=== PATIENT | male | born 1930 | race Caucasian/White ===

== ENCOUNTER 2017-08-25 09:08 | Day surgery (SDC) | payer OTHER, BC ==
[2017-08-25 08:50] VITALS: BMI 24.8
[2017-08-25] MEDS ORDERED: LIDOCAINE HCL/PF 2% SDV 5ML VIAL ONE (09:46)
[2017-08-25] MEDS ORDERED: PROPOFOL 20 ML ONE (09:46)
[2017-08-25 10:42] VITALS: TEMP 97.8
[2017-08-25 11:43] VITALS: BP 130/56; PULSE 61
--- NOTE | 2017-08-28 12:22 | PATH ---
Surgical Pathology Report Patient Name: MAINOR SANDOVAL [facility]. Rec. #: [id number] /Age/Gender: 1930 (Age: 87) / M Account: [id number] Location: ASU-ENDOSCOPY Taken: 08/25/2017 Received: 08/25/2017 Reported: 08/28/2017 Physicians: Franc Zazueta M.D. Specimen(s) Received BX TRANSVERSE COLON Clinical History Family history of colon cancer, screening Postoperative diagnosis: Diverticulosis Final Diagnosis PROXIMAL TRANSVERSE COLON, DIVERTICULUM, BIOPSY: COLONIC MUCOSA WITHOUT SIGNIFICANT PATHOLOGIC FINDINGS. Electronically Signed Mary Anne Odonnell M.D. Gross Description Received in formalin, labeled "biopsy transverse colon diverticulum" is a aponte, irregular portion of soft tissue measuring 0.4 cm. in greatest dimension. The specimen is submitted in toto in one cassette. /08/25/201708/25/2017
== END 2017-08-25 11:43 | disposition home or self-care (01) ==
LOC: JASU-ENDO 09:08
PROVIDERS: ATTEND Internal Medicine Gastroenterology
PROC: 0DBL8ZX Excision of Transverse Colon, Via Natural or Artificial Opening Endoscopic, Diagnostic (ICD-10-PCS; principal; 2017-08-25 09:45)
DX: Z12.11 Encounter for screening for malignant neoplasm of colon (principal); Z80.0 Family history of malignant neoplasm of digestive organs; K57.30 Diverticulosis of large intestine without perforation or abscess without bleeding
CPT/HCPCS: 88305-TC

== ENCOUNTER 2017-10-30 13:45 | Inpatient (IN) | payer OTHER, BC ==
[2017-10-30 13:57] VITALS: BMI 24.2
--- NOTE | 2017-10-30 14:03 | PDOC ---
History of Present Illness - General Chief Complaint: Shortness of Breath Stated Complaint: CHEST PAIN Time Seen by Provider: 10/30/17 14:01 History Source: Patient, Family Exam Limitations: No Limitations - History of Present Illness Initial Comments: 10/30/17 14:28 87 year old male with PMH COPD, DM, chronic UTI, prostate CA, esophageal CA, vertigo, HTN, HLD, CAD, [place] x2, stents, chronic ear wax presenting to ED for productive cough x2 weeks and fever x3 days. He also complains of chest tightness, dizziness, generalized weakness. He states he had a sore throat a week ago, but that since has self resolved. He states talked to Dr. Srivastava last monday on the phone about his cough, had a fever of 99.9F, was placed on Z-pack and prednisone, but his symptoms progressed. He describes his sputum as green. He had a fever of 100.3F today. Past History - Past Medical History Allergies/Adverse Reactions: Allergies Allergy/AdvReac Type Severity Reaction Status Date / Time No Known Drug Allergies Allergy Verified 10/30/17 13:53 Home Medications: Ambulatory Orders Aspirin [ASA -] 81 mg PO ASDIR 11/21/11 Glucosa Zaidi 2Kcl/Chondroitin Zaidi [Glucosamine & Chondroitin Cap] 1 each PO DAILY # 0 capsule 11/24/11 Selenium 200 mcg PO DAILY #0 tablet 11/24/11 Ubidecarenone [Co Q-10] 400 mg PO DAILY #0 capsule 11/24/11 Vitamin E 1,000 unit PO DAILY #0 capsule 11/24/11 Zinc [Zinc Chelated] 50 mg PO DAILY #0 capsule 11/24/11 Omeprazole [Prilosec (RX)] 20 mg PO DAILY #0 capsule 01/23/12 Metformin HCl [Riomet] 500 mg PO DAILY 01/19/16 Tamsulosin HCl [Flomax] 0.4 mg PO BID 01/19/16 Meclizine HCl [Antivert -] 25 mg PO Q6H PRN #60 tablet 01/22/16 metFORMIN HCL [Glucophage -] 500 mg PO DAILY@0700 tablet 01/22/16 Atorvastatin Ca [Lipitor] 40 mg PO HS 10/30/17 Lisinopril [Zestril] 2.5 mg PO DAILY 10/30/17 Metoprolol Succinate [Toprol XL -] 200 mg PO BID 10/30/17 Anemia: No Asthma: No Cancer: Yes (PROSTATE) Cardiac Disorders: Yes (MIX2, STENT PLACEMENT) CVA: No COPD: Yes (EMPHYSEMA) CHF: No Dementia: No Diabetes: Yes GI Disorders: Yes Disorders: Yes (CHRONIC UTI X 6 YEARS,prostate ca) HTN: Yes Hypercholesterolemia: Yes Liver Disease: No Seizures: No Thyroid Disease: No - Surgical History Abdominal Surgery: Yes (BILATERAL INGUINAL HERNIA REPAIR) Appendectomy: No Cardiac Surgery: Yes (STENTS X2) Lung Surgery: No Neurologic Surgery: No Orthopedic Surgery: Yes - Suicide/Smoking/Psychosocial Hx Smoking Status: Yes Smoking History: Current every day smoker Have you smoked in the past 12 months: No Number of Cigarettes Smoked Daily: 2 If you are a former smoker, when did you quit?: 2012 Information on smoking cessation initiated: No 'Breaking Loose' booklet given: 04/23/13 Hx Alcohol Use: No Drug/Substance Use Hx: No Substance Use Type: None Hx Substance Use Treatment: No Review of Systems - Review of Systems Able to Perform ROS?: Yes Comments:: 10/30/17 14:32 General: admits to fever, generalized weakness. HEENT: admits to nasal congestion. denies sore throat, rhinorrhea, ear pain. Heart: admits to chest tightness. denies palpitations, syncope, lower extremity swelling, diaphoresis. Respiratory: admits to shortness of breath, productive cough. denies hematemesis. Abdomen: denies abdominal pain, nausea, vomiting, diarrhea, constipation, blood in stool. : denies dysuria, increased urinary frequency, hematuria, urinary incontinence , flank pain. Back: denies back pain. Musculoskeletal: denies joint pain, muscle pain, joint swelling. Neurological: admits to dizziness. denies headache, numbness, tingling, weakness. Skin: denies rash, laceration, abrasion. *Physical Exam - Vital Signs Last Vital Signs Temp Pulse Resp BP Pulse Ox 99.2 F 71 20 124/58 L 95 10/30/17 13:53 10/30/17 13:53 10/30/17 13:53 10/30/17 13:53 10/30/17 13:53 - Physical Exam Comments: 10/30/17 14:34 Constitutional: Well-nourished, Well-developed, appearing stated age. HEENT: head is normocephalic, atraumatic. EOMI. PERRLA. left auditory canal and TM unable to be visualized due to cerumen. right auditory canal displays cerumen , redness to ear canal, unable to visualize TM due to cerumen. nasal mucosa pink , appears normal. no tenderness to palpation of frontal and maxillary sinus bilaterally. oral mucosa moist, pink. no tonsillar swealling, no tonsillar exudates, no posterior pharyngeal edema. Neck: supple. Full ROM. no cervical lymphadenopathy. Heart: distant heart sounds. Lungs: inspiratory crackles to right base. left lung breaux clear to auscultation. Abdomen: soft, nontender. normal bowel sounds. no rebound, guarding, masses. Extremities: Peripheral pulses intact. No lower extremity edema. Neurological: CN 2-12 grossly intact. Moves all four extremities. Psych: awake, alert, oriented x3. Follows commands. Answers questions appropriately. Heart Score/ECG Review - ECG Impressions Comment:: EKG performed at 1355 Rate 112, irregularly irregular rhythm, left axis, left budnle branch block present, no acute ST changes. EKG performed at 1834 Rate 95, irregularly irregular rhythm, left bundle branch block, no acute ST changes. ED Treatment Course - LABORATORY CBC & Chemistry Diagram: 10/30/17 15:25 10/30/17 15:25 Medical Decision Making - Medical Decision Making 10/30/17 14:40 87 year old male with PMH COPD, DM, HTN, LD, CAD, MIx2, stents, vertigo presenting for cough, nasal congestion, chest tightness, fever, dizziness, decreased hearing to right ear. Pt seen by PCP, Dr. Srivastava, last monday, given Z-pack and prednisone. Self-reported fever of 100.3. Initial Vital Signs Temp Pulse Resp BP Pulse Ox 99.2 F 71 20 124/58 L 95 10/30/17 13:53 10/30/17 13:53 10/30/17 13:53 10/30/17 13:53 10/30/17 13:53 Concern for pneumonia, productive cough, Hx COPD, basilar crackles. Pending CXR, CBC. Concern for UTI, hx chronic UTI. Pending UA/UC. Concern for ACS/atrial fibrillation, chest tightness, hx MIx2, hx stents. Pending EKG, cardiac enzymes. 10/30/17 14:45 EKG - atrial fibrillation with RVR. Concern for new onset Atrial fibrillation. Pt is not anticoagulated. [employer] Tester Field - Dr. Baker. 10/30/17 15:26 I spoke with pt's concert promoter, Dr. Baker, he states he would like the patient to be anticoagulated on Eliquis, and admitted for rate control. Pending labs for dosing. 10/30/17 16:50 Pt reassessed, states is feeling well. Atrial fibrillation noted on the library monitor, rate 92. CMP hemolyzed. Will redraw. CBC WBC 14.1 K/mm3 (4.0-10.0) H 10/30/17 15:25 RBC 3.91 M/mm3 (4.00-5.60) L 10/30/17 15:25 Hgb 11.9 GM/dL (11.7-16.9) 10/30/17 15:25 Hct 36.3 % (35.4-49) 10/30/17 15:25 MCV 92.9 fl (80-96) 10/30/17 15:25 MCH 30.4 pg (25.7-33.7) 10/30/17 15:25 MCHC 32.8 g/dl (32.0-35.9) 10/30/17 15:25 RDW 13.8 % (11.9-15.9) 10/30/17 15:25 Plt Count 468 K/MM3 (134-434) H D 10/30/17 15:25 MPV 7.8 fl (7.5-11.1) 10/30/17 15:25 Absolute Neuts (auto) 10.6 K/mm3 (1.5-8.0) H 10/30/17 15:25 Neutrophils % 75.6 % (42.8-82.8) D 10/30/17 15:25 Lymphocytes % 11.6 % (8-40) D 10/30/17 15:25 Monocytes % 12.0 % (3.8-10.2) H 10/30/17 15:25 Eosinophils % 0.3 % (0-4.5) D 10/30/17 15:25 Basophils % 0.5 % (0-2.0) 10/30/17 15:25 Nucleated RBC % 0 % (0-0) 10/30/17 15:25 Leukocytosis - WBC 14.1, on prednisone. Laboratory Results - last 24 hr 10/30/17 10/30/17 10/30/17 15:20 15:25 15:25 WBC 14.1 H RBC 3.91 L Hgb 11.9 Hct 36.3 MCV 92.9 MCH 30.4 MCHC 32.8 RDW 13.8 Plt Count 468 H D MPV 7.8 Absolute Neuts (auto) 10.6 H Neutrophils % 75.6 D Lymphocytes % 11.6 D Monocytes % 12.0 H Eosinophils % 0.3 D Basophils % 0.5 Nucleated RBC % 0 Sodium 134 L Cancelled Potassium 5.1 Cancelled Chloride 107 Cancelled Carbon Dioxide 26 Cancelled Anion Gap 1 L Cancelled BUN 22 H Cancelled Creatinine 1.1 Cancelled Creat Clearance w eGFR > 60 Cancelled Random Glucose 107 H Cancelled Calcium 9.5 Cancelled Total Bilirubin 0.2 Cancelled AST 14 L Cancelled ALT 22 Cancelled Alkaline Phosphatase 63 Cancelled Creatine Kinase 49 Cancelled Troponin I 0.02 Cancelled Total Protein 6.7 Cancelled Albumin 3.0 L Cancelled TSH 0.08 L Cancelled Urine Color Urine Appearance Urine pH Ur Specific [place] Urine Protein Urine Glucose (UA) Urine Ketones Urine Blood Urine Nitrite Urine Bilirubin Urine Urobilinogen Ur Leukocyte Esterase Urine WBC (Auto) Urine RBC (Auto) Ur Epithelial Cells Urine Bacteria Hyaline Casts Urine Mucus 10/30/17 17:05 WBC RBC Hgb Hct MCV MCH MCHC RDW Plt Count MPV Absolute Neuts (auto) Neutrophils % Lymphocytes % Monocytes % Eosinophils % Basophils % Nucleated RBC % Sodium Potassium Chloride Carbon Dioxide Anion Gap BUN Creatinine Creat Clearance w eGFR Random Glucose Calcium Total Bilirubin AST ALT Alkaline Phosphatase Creatine Kinase Troponin I Total Protein Albumin TSH Urine Color Yellow Urine Appearance Slcloudy Urine pH 6.0 Ur Specific [place] 1.012 Urine Protein Negative Urine Glucose (UA) Negative Urine Ketones Negative Urine Blood Negative Urine Nitrite Positive Urine Bilirubin Negative Urine Urobilinogen Negative Ur Leukocyte Esterase 3+ H Urine WBC (Auto) 152 Urine RBC (Auto) 4 Ur Epithelial Cells Rare Urine Bacteria Many Hyaline Casts 4 Urine Mucus Rare Chronic UTI present. Similar to prior result. Asymptomatic. No indication for treatment at this time. Troponin negative. Cr 1.1. I signed this patient out to Dr. Roper, who will assume care for the patient in the Emergency Department. *DC/Admit/Observation/Transfer Diagnosis at time of Disposition: Atrial fibrillation with RVR Diabetes Qualifiers: Diabetes mellitus type: type 2 Diabetes mellitus custodial insulin use: unspecified custodial insulin use status Diabetes mellitus complication status: with unspecified complications Qualified Code(s): E11.8 - Type 2 diabetes mellitus with unspecified complications - Discharge Dispostion Condition at time of disposition: Good Decision to Admit order: Yes - Referrals Referrals: Taye Srivastava MD [Primary Care Provider] - - Patient Instructions - Post Discharge Activity
--- NOTE | 2017-10-30 14:16 | PDOC ---
Attending Attestation - Resident Resident Name: Gin Gardiner - ED Attending Attestation I have performed the following: I have examined & evaluated the patient, The case was reviewed & discussed with the resident, I agree w/resident's findings & plan, Exceptions are as noted - HPI HPI: 10/30/17 14:38 Mr Torres is an 87 yo M COPD, DM, HTN, HLD, CAD, [place], esophageal and prostate Cancer P/w cough, chest tightness, exertional dyspnea He has also noted a (+) productive cough and dizziness He was seen by his PMD last week, thought to have an URI/COPD exacerbation He was started on Azithromycin and Prednisone His symptoms have persisted which prompted his visit today 10/30/17 15:35 - Physicial Exam PE: 10/30/17 14:39 GENERAL: The patient is in no acute distress. EYES: PERRLA, EOMI, sclera anicteric, conjunctiva clear. ENT: Ears normal, nares patent, oropharynx clear without exudates. Moist mucous membranes. NECK: Normal range of motion, supple without lymphadenopathy LUNGS: Breath sounds equal, clear to auscultation bilaterally. No wheezing HEART: Irregularly irregular, no murmur, ABDOMEN: Soft, nontender, normoactive bowel sounds. No guarding, no rebound. No masses palpable. EXTREMITIES: Normal range of motion, no edema. NEUROLOGICAL: Cranial nerves II through XII grossly intact. Normal speech. No focal neurological deficits. 10/30/17 15:37 - Medical Decision Making 87-year-old male with multiple medical problems presents emergency Department with shortness of breath, status post recent treatment for COPD exacerbation Patient EKG reveals atrial fibrillation which is slightly can tell and diagnosis for this patient. Differential diagnosis still includes: COPD, ACS, atrial fibrillation, heart failure. Will do: Labs, x-ray Rate control Reassess 10/30/17 15:53 EKG: Atrial fibrillation, rate of 112 bpm, left axis deviation, left bundle branch block 10/30/17 15:53 Laboratory Tests 10/30/17 15:25 WBC 14.1 H Hgb 11.9 Hct 36.3 Plt Count 468 H D 10/30/17 17:23 Pt presents with SOB New onset Afib CMP pending Pt signed out to Dr Truman Zamudio
[2017-10-30 15:41] LABS: BASO % 0.5 % (0-2.0); EOS % 0.3 % (0-4.5); HEMATOCRIT 36.3 % (35.4-49); HEMOGLOBIN 11.9 GM/dL (11.7-16.9); LYMPH % 11.6 % (8-40); MCH 30.4 pg (25.7-33.7); MCHC 32.8 g/dl (32.0-35.9); MEAN CELL VOLUME 92.9 fl (80-96); MEAN PLT VOLUME 7.8 fl (7.5-11.1); NEUT % 75.6 % (42.8-82.8); PLATELET COUNT 468 K/MM3 (134-434); RBC 3.91 M/mm3 (4.00-5.60); RDW 13.8 % (11.9-15.9); WHITE BLOOD COUNT 14.1 K/mm3 (4.0-10.0)
[2017-10-30 17:31] LABS: URINE APPEARANCE SLCLOUDY; URINE BILIRUBIN NEGATIVE (<2.0 mg/dL); URINE COLOR YELLOW; URINE GLUCOSE (UA) NEGATIVE (NEGATIVE); URINE KETONE NEGATIVE (NEGATIVE); URINE NITRITE POSITIVE (NEGATIVE); URINE PROTEIN NEGATIVE (NEGATIVE); URINE UROBILINOGEN NEGATIVE mg/dL (0.2-1.0)
[2017-10-30 17:59] LABS: URINE LEUK ESTERASE 3+ (NEGATIVE)
[2017-10-30 18:31] LABS: EPI CELLS RARE /HPF (FEW); URINE BACTERIA MANY /hpf (NONE SEEN); URINE HYALINE CAST 4 /lpf; URINE MUCUS RARE
[2017-10-30 19:05] LABS: ALK PHOS 63 U/L (45-117); ANION GAP 1 MMOL/L (8-16); BILIRUBIN,TOTAL 0.2 mg/dL (0.2-1); BLOOD UREA NITROGEN 22 mg/dL (7-18); CALCIUM 9.5 mg/dL (8.5-10.1); CHLORIDE 107 mmol/L (98-107); CO2 26 mmol/L (21-32); CREATININE 1.1 mg/dL (0.55-1.3); GLUCOSE,RANDOM 107 mg/dL (74-106); POTASSIUM 5.1 mmol/L (3.5-5.1); SGOT/AST 14 U/L (15-37); SGPT/ALT 22 U/L (13-61); SODIUM 134 mmol/L (136-145); TOT PROT 6.7 g/dl (6.4-8.2)
--- NOTE | 2017-10-30 19:28 | PDOC ---
*Physical Exam - Vital Signs Last Vital Signs Temp Pulse Resp BP Pulse Ox 96.6 F L 85 17 132/63 95 10/30/17 18:30 10/30/17 18:30 10/30/17 18:30 10/30/17 18:30 10/30/17 13:53 - Physical Exam Comments: GENERAL: Awake, alert, and fully oriented, in no acute distress LUNGS: No distress, speaks full sentences, clear to auscultation bilaterally HEART: Regular rate w/ irregularly irregular rhythm, normal S1 and S2, no murmurs appreciated, peripheral pulses normal and equal bilaterally ABDOMEN: Soft, nontender, non-distended w/o guarding or rebound 10/30/17 22:48 ED Treatment Course - LABORATORY CBC & Chemistry Diagram: 10/30/17 15:25 10/30/17 15:25 - ADDITIONAL ORDERS Additional order review: Laboratory Results 10/30/17 10/30/17 10/30/17 17:05 15:25 15:20 Sodium Cancelled 134 L Potassium Cancelled 5.1 Chloride Cancelled 107 Carbon Dioxide Cancelled 26 Anion Gap Cancelled 1 L BUN Cancelled 22 H Creatinine Cancelled 1.1 Creat Clearance w eGFR Cancelled > 60 Random Glucose Cancelled 107 H Calcium Cancelled 9.5 Total Bilirubin Cancelled 0.2 AST Cancelled 14 L ALT Cancelled 22 Alkaline Phosphatase Cancelled 63 Creatine Kinase Cancelled 49 Troponin I Cancelled 0.02 Total Protein Cancelled 6.7 Albumin Cancelled 3.0 L TSH Cancelled 0.08 L Urine Color Yellow Urine Appearance Slcloudy Urine pH 6.0 Ur Specific [place] 1.012 Urine Protein Negative Urine Glucose (UA) Negative Urine Ketones Negative Urine Blood Negative Urine Nitrite Positive Urine Bilirubin Negative Urine Urobilinogen Negative Ur Leukocyte Esterase 3+ H Urine WBC (Auto) 152 Urine RBC (Auto) 4 Ur Epithelial Cells Rare Urine Bacteria Many Hyaline Casts 4 Urine Mucus Rare 10/30/17 15:25 RBC 3.91 L MCV 92.9 MCHC 32.8 RDW 13.8 MPV 7.8 Neutrophils % 75.6 D Lymphocytes % 11.6 D Monocytes % 12.0 H Eosinophils % 0.3 D Basophils % 0.5 Medical Decision Making - Medical Decision Making I have assumed care of the patient from Dr. Gardiner, who has discussed the clinical presentation, work-up, and ED course thus far. I have reviewed the patients medical record and ED course and agree with all aspects of care thus far. Patient denies chest pain, SOB, WOODRUFF, changes in vision or any current complaints UA concerning for UTI, will draw blood cx and treat with Rocephin 1g IV once Plan for admission for management of new onset a-fib w/ RVR Will start Eliquis 2.5mg based on dosing recommendations for age Will obtain blood cultures prior to Abx Dispo: Admit w/ Cardiology consult 10/30/17 20:04 *DC/Admit/Observation/Transfer Diagnosis at time of Disposition: Atrial fibrillation with RVR Diabetes Qualifiers: Diabetes mellitus type: type 2 Diabetes mellitus long term care phlebotomist insulin use: unspecified long term care phlebotomist insulin use status Diabetes mellitus complication status: with unspecified complications Qualified Code(s): E11.8 - Type 2 diabetes mellitus with unspecified complications - Discharge Dispostion Condition at time of disposition: Good Decision to Admit order: Yes Decision to Admit order Date/Time: Decision to Admit Order Category Date Time Status Decision to Admit to Hospital Routine Admission 10/30/17 19:26 Ordered - Referrals - Patient Instructions - Post Discharge Activity
[2017-10-30] MEDS ORDERED: CEFTRIAXONE 1 MG in DEXTROSE 5%-WATER - 50 ML IVPB ONE (20:02)
--- NOTE | 2017-10-30 20:04 | PN ---
Teaching Attending Note Name of Resident: Tracy Rosario ATTENDING PHYSICIAN STATEMENT I saw and evaluated the patient. I reviewed the resident's note and discussed the case with the resident. I agree with the resident's findings and plan as documented. SUBJECTIVE: 87 y/o M presented to Ed c/o cough , congestion and dizziness, patient was seen by PMD and treated with Azithromycin and prednisone. Medication compliance not adequate. PMH: HTN, HLD, CAD, s/p [place] 2 stents, h/o UTIs, H/o Prostate cancer, Esophageal Cancer and vertigo. SH: h/o smoking quit 2 weks ago 1PPD, Social drinker, Marijuana FMH: Mother colon Ca, Father CAD, from [place], Brother Lung Cancer, Daughter Breast Ca OBJECTIVE: GEN: A&Ox3, NAD HEENT: NC, EOMI, PERRLA CVS: Irregular rhythm Lungs: CTA Abd: Soft, NT, ND, BS+ Ext: nl ROM, 2+ pulses. skin: warm CBCD WBC 14.1 K/mm3 (4.0-10.0) H 10/30/17 15:25 RBC 3.91 M/mm3 (4.00-5.60) L 10/30/17 15:25 Hgb 11.9 GM/dL (11.7-16.9) 10/30/17 15:25 Hct 36.3 % (35.4-49) 10/30/17 15:25 MCV 92.9 fl (80-96) 10/30/17 15:25 MCHC 32.8 g/dl (32.0-35.9) 10/30/17 15:25 RDW 13.8 % (11.9-15.9) 10/30/17 15:25 Plt Count 468 K/MM3 (134-434) H D 10/30/17 15:25 MPV 7.8 fl (7.5-11.1) 10/30/17 15:25 ASSESSMENT AND PLAN: Sepsis secondary to UTI vs URI IVF NS@ Ceftriaxone Follow Ucx CBC, BMP New Onset Afib LYNNE vasc-5 Elliquis cardiology consult ECHO in AM Abnormal TSH FT4, FT3 Depression PHQ9 DVT prophylaxis
[2017-10-30] MEDS ORDERED: CEFTRIAXONE 1 GM/50 ML BAG ONE (20:29)
[2017-10-30] MEDS: APIXABAN 2.5 MG TABLET PO SCH (22:05)
--- NOTE | 2017-10-30 23:04 | HP ---
CHIEF COMPLAINT: fever, chest tightness, cough PCP: PCP- Dr. Srivastava Cardio- Dr. Baker HISTORY OF PRESENT ILLNESS: 87M w/ pmhx of DM, GERD, HLD, prostate cx, esophageal cx, HTN presented w/ a reported fever this AM of 100.3. Pt was recently seen by his PCP, Dr. Srivastava, this past Monday for R ear congestion and cough with productive sputum and was given azithromycin and prednisone. Of note, pt did not complete medication regimen yet. Upon exam, pt's granddaughter, also his health care proxy, was present. Pt was instructed to go to hospital for symptoms. Upon exam, pt was no longer febrile. Admits to "cock-eyed" gait that started several weeks prior. Also admits to dizziness that started 4 mo's ago and chest tightness with mild sob. Pt admits to pressure and crackling sensation in R ear with recent R hearing loss. Denies n/v, urinary/bowel symptoms, blood in urine/stool, abd pain. ER course was notable for: (1) Rocephin 1 gm given (2) CXR neg, ECG showed A. fib w/ RVR (3) UA 3+ LE, urine cx ordered Recent Travel: Denies PAST MEDICAL HISTORY: DM GERD HLD prostate cx esophageal cx HTN chronic recurrent UTIs PAST SURGICAL HISTORY: TURP [facility] s/p stent placement x2 umbilical hernia repair L ankle sx removal of esophageal tumor Social History: Smoking: Admits to smoking for 70 years, 1pack/day but recently quit in 2013. He started smoking again July 2017 and stopped 2 weeks ago Alcohol: socially Drugs: uses marijuana once every 6 months Family History: Mother- colon cx Father- [facility] Brother- Lung cx Daughter- breast cx Allergies No Known Drug Allergies Allergy (Verified 10/30/17 13:53) HOME MEDICATIONS: Home Medications Medication Instructions Recorded Aspirin [ASA -] 81 mg PO ASDIR 11/21/11 Glucosa Zaidi 2Kcl/Chondroitin Zaidi 1 each PO DAILY #0 capsule 11/24/11 [Glucosamine & Chondroitin Cap] Selenium 200 mcg PO DAILY #0 tablet 11/24/11 Ubidecarenone [Co Q-10] 400 mg PO DAILY #0 capsule 11/24/11 Vitamin E 1,000 unit PO DAILY #0 capsule 11/24/11 Zinc [Zinc Chelated] 50 mg PO DAILY #0 capsule 11/24/11 Omeprazole [Prilosec (RX)] 20 mg PO DAILY #0 capsule 01/23/12 Metformin HCl [Riomet] 500 mg PO DAILY 01/19/16 Tamsulosin HCl [Flomax] 0.4 mg PO BID 01/19/16 Meclizine HCl [Antivert -] 25 mg PO Q6H PRN #60 tablet 01/22/16 metFORMIN HCL [Glucophage -] 500 mg PO DAILY@0700 tablet 01/22/16 Atorvastatin Ca [Lipitor] 40 mg PO HS 10/30/17 Lisinopril [Zestril] 2.5 mg PO DAILY 10/30/17 Metoprolol Succinate [Toprol XL -] 200 mg PO BID 10/30/17 REVIEW OF SYSTEMS CONSTITUTIONAL: Absent: fever, chills, diaphoresis, generalized weakness, malaise, loss of appetite, weight change HEENT: Absent: rhinorrhea, nasal congestion, throat pain, throat swelling, difficulty swallowing, mouth swelling, ear pain, eye pain, visual changes CARDIOVASCULAR: +chest tightness, +lightheadedness Absent: chest pain, syncope, palpitations, irregular heart rate, peripheral edema RESPIRATORY: +cough, +dyspnea with exertion Absent: shortness of breath, , orthopnea, wheezing, stridor, hemoptysis GASTROINTESTINAL: Absent: abdominal pain, abdominal distension, nausea, vomiting, diarrhea, constipation, melena, hematochezia GENITOURINARY: Absent: dysuria, frequency, urgency, hesitancy, hematuria, flank pain, genital pain MUSCULOSKELETAL: Absent: myalgia, arthralgia, joint swelling, back pain, neck pain SKIN: Absent: rash, itching, pallor HEMATOLOGIC/IMMUNOLOGIC: Absent: easy bleeding, easy bruising, lymphadenopathy, frequent infections ENDOCRINE: Absent: unexplained weight gain, unexplained weight loss, heat intolerance, cold intolerance NEUROLOGIC: +dizziness, +unsteady gait Absent: headache, focal weakness or paresthesias, seizure, mental status changes , bladder or bowel incontinence PSYCHIATRIC: +depression Absent: anxiety, suicidal or homicidal ideation, hallucinations. PHYSICAL EXAMINATION Vital Signs - 24 hr 10/30/17 10/30/17 13:53 18:30 Temperature 99.2 F 96.6 F L Pulse Rate 71 Pulse Rate [ 85 Radial] Respiratory 20 17 Rate Blood Pressure 124/58 L Blood Pressure 132/63 [Left Arm] O2 Sat by Pulse 95 Oximetry (%) GENERAL: AAOx3. NAD. Well-appearing. HEENT: AT/NC. EOMI. Dry mucus membranes. NECK: Normal range of motion, supple without lymphadenopathy, JVD, or masses. LUNGS: CTA B/L. No wheezes, rhonchi, rales noted. No accessory muscle use. HEART: Regular rate and rhythm, normal S1 and S2 without murmur, rub or gallop. ABDOMEN: Soft NT/ND. Normoactive BS in all 4Q's. Umbilical hernia. MUSCULOSKELETAL: Normal range of motion at all joints. No bony deformities or tenderness. No CVA tenderness. UPPER EXTREMITIES: 2+ pulses, warm, well-perfused. No cyanosis. No clubbing. No peripheral edema. 5/5 muscle strength b/l. LOWER EXTREMITIES: 2+ pulses, warm, well-perfused. No calf tenderness. No peripheral edema. 5/5 muscle strength b/l. NEUROLOGICAL: Cranial nerves II-XII intact. Normal speech. Wide-based gait. Normal sensation. PSYCHIATRIC: Cooperative. Good eye contact. Appropriate mood and affect. SKIN: Warm, dry, normal turgor, no rashes or lesions noted, normal capillary refill. Laboratory Results - last 24 hr 10/30/17 10/30/17 10/30/17 15:20 15:25 15:25 WBC 14.1 H RBC 3.91 L Hgb 11.9 Hct 36.3 MCV 92.9 MCH 30.4 MCHC 32.8 RDW 13.8 Plt Count 468 H D MPV 7.8 Absolute Neuts (auto) 10.6 H Neutrophils % 75.6 D Lymphocytes % 11.6 D Monocytes % 12.0 H Eosinophils % 0.3 D Basophils % 0.5 Nucleated RBC % 0 Sodium 134 L Cancelled Potassium 5.1 Cancelled Chloride 107 Cancelled Carbon Dioxide 26 Cancelled Anion Gap 1 L Cancelled BUN 22 H Cancelled Creatinine 1.1 Cancelled Creat Clearance w eGFR > 60 Cancelled Random Glucose 107 H Cancelled Calcium 9.5 Cancelled Total Bilirubin 0.2 Cancelled AST 14 L Cancelled ALT 22 Cancelled Alkaline Phosphatase 63 Cancelled Creatine Kinase 49 Cancelled Troponin I 0.02 Cancelled Total Protein 6.7 Cancelled Albumin 3.0 L Cancelled TSH 0.08 L Cancelled Urine Color Urine Appearance Urine pH Ur Specific [place] Urine Protein Urine Glucose (UA) Urine Ketones Urine Blood Urine Nitrite Urine Bilirubin Urine Urobilinogen Ur Leukocyte Esterase Urine WBC (Auto) Urine RBC (Auto) Ur Epithelial Cells Urine Bacteria Hyaline Casts Urine Mucus 10/30/17 17:05 WBC RBC Hgb Hct MCV MCH MCHC RDW Plt Count MPV Absolute Neuts (auto) Neutrophils % Lymphocytes % Monocytes % Eosinophils % Basophils % Nucleated RBC % Sodium Potassium Chloride Carbon Dioxide Anion Gap BUN Creatinine Creat Clearance w eGFR Random Glucose Calcium Total Bilirubin AST ALT Alkaline Phosphatase Creatine Kinase Troponin I Total Protein Albumin TSH Urine Color Yellow Urine Appearance Slcloudy Urine pH 6.0 Ur Specific [place] 1.012 Urine Protein Negative Urine Glucose (UA) Negative Urine Ketones Negative Urine Blood Negative Urine Nitrite Positive Urine Bilirubin Negative Urine Urobilinogen Negative Ur Leukocyte Esterase 3+ H Urine WBC (Auto) 152 Urine RBC (Auto) 4 Ur Epithelial Cells Rare Urine Bacteria Many Hyaline Casts 4 Urine Mucus Rare ASSESSMENT/PLAN: 87M w/ pmhx of CAD, [facility] s/p stent placements x2, HLD, prostate cx, esophageal cx , HTN, #Sepsis 2/2 UTI vs. URI; Upon initial exam, pt tachycardic at 112 with WBC 14.1 and UA w/ 3+ LE. -Rocephin 1gm IV given -urine and blood cx pending -NS @ 75 cc/hr -repeat CBC in AM #New onset A. fib w/ RVR 2/2 possible hyperthyroidism vs. valvular disease; Pt currently asymptomatic. -CHADVASc 5, needs anti-coag -Eliquis 2.5 mg PO BID -Echo ordered to r/o valvular disease -T3, T4 ordered to assess thyroid fxn -cardio consult (Dr. Baker) #HTN; Stable at 132/63. -Metoprolol succinate 200 mg PO BID (home med) #HLD -Atorvastatin 40 mg PO HS (home med) #DM; Controlled. -hold Metformin -ISS -BGMs #CAD -Aspirin 81 mg PO QD (home med) #hx of prostate cx; s/p TURP -Tamsulosin Hcl 0.4 mg PO BID (home med) #GERD -Omeprazole 20 mg PO QD (home med) #Depression -plan to do depression screen #DVT Ppx; Pt started on Eliquis. -SCDs #FEN -NS @ 75cc/hr -recheck ruma in AM -diabetic/sodium controlled diet dispo -Granddaughter is POA/HCP -med rec'd Visit type - Emergency Visit Emergency Visit: Yes ED Registration Date: 10/30/17 Care time: The patient presented to the Emergency Department on the above date and was hospitalized for further evaluation of their emergent condition. - New Patient This patient is new to me today: Yes Date on this admission: 10/31/17 - Critical Care Critical Care patient: No Hospitalist Screening - Colonoscopy Questionnaire Colonoscopy Questionnaire: Colonoscopy Questionnaire - Patient: 50 - 75 years old and never had a screening colonoscopy: Unknown History of colon or rectal polyps, or CA: Unknown History of IBD, Crohn's disease or UC: Unknown History of abdominal radiation therapy as a child: Unknown - Relative: 1 with colon or rectal CA, or polyps at age 60 or younger: Unknown Colon or rectal CA diagnosed at age 45 or younger: Unknown Multiple relatives with colon or rectal CA: Unknown - Outcome: Screening Result: Negative Screen
[2017-10-31] MEDS ORDERED: ASPIRIN 81 MG CHEWABLE TABLETS PO SCH (02:45)
[2017-10-31] MEDS: SODIUM CHLORIDE 1,000 ML IV SCH (02:49)
[2017-10-31] MEDS ORDERED: HEMOQUE CONTROL SOLUTION ONE (05:43)
[2017-10-31] MEDS ORDERED: HEMOQUE TEST 1 EACH EACH ONE (05:44)
[2017-10-31 06:35] LABS: BASO % 0.4 % (0-2.0); EOS % 0.8 % (0-4.5); HEMATOCRIT 33.9 % (35.4-49); HEMOGLOBIN 11.2 GM/dL (11.7-16.9); LYMPH % 18.5 % (8-40); MCH 30.3 pg (25.7-33.7); MEAN CELL VOLUME 91.8 fl (80-96); MEAN PLT VOLUME 6.9 fl (7.5-11.1); MONO % 14.5 % (3.8-10.2); NEUT % 65.8 % (42.8-82.8); PLATELET COUNT 419 K/MM3 (134-434); RBC 3.69 M/mm3 (4.00-5.60); WHITE BLOOD COUNT 11.3 K/mm3 (4.0-10.0)
[2017-10-31] MEDS: INSULIN SLIDING SCALE (NOVOLOG) 1 VIAL SQ SCH ×4 (07:01→21:41)
[2017-10-31 07:03] LABS: ALBUMIN 2.6 g/dl (3.4-5.0); ALK PHOS 57 U/L (45-117); ANION GAP 7 MMOL/L (8-16); BILIRUBIN,TOTAL 0.2 mg/dL (0.2-1); BLOOD UREA NITROGEN 19 mg/dL (7-18); CALCIUM 8.8 mg/dL (8.5-10.1); CHLORIDE 105 mmol/L (98-107); CO2 28 mmol/L (21-32); CREATININE 1.2 mg/dL (0.55-1.3); GLUCOSE,RANDOM 102 mg/dL (74-106); POTASSIUM 4.8 mmol/L (3.5-5.1); SGOT/AST 11 U/L (15-37); SGPT/ALT 18 U/L (13-61); SODIUM 140 mmol/L (136-145); TOT PROT 5.8 g/dl (6.4-8.2)
[2017-10-31] MEDS ORDERED: SELENIUM 200 MCG PO SCH (10:00)
[2017-10-31] MEDS ORDERED: PATIENT'S OWN MEDICATION (NON-FORMULARY) (Glucosa Su 2kcl/Chondroitin Su [Glucosamine & Ch PO SCH (10:00)
[2017-10-31] MEDS ORDERED: UBIDECARENONE 400 MG PO SCH (10:00)
[2017-10-31] MEDS: LISINOPRIL 5 MG TABLET (FP) PO SCH (10:35)
[2017-10-31] MEDS: APIXABAN 2.5 MG TABLET PO SCH ×2 (10:35→21:38)
[2017-10-31] MEDS: PANTOPRAZOLE 20 MG TABLET (FP) PO SCH (10:35)
[2017-10-31] MEDS: TAMSULOSIN HCL 0.4 MG CAP.ER.24H (FP) PO SCH ×2 (10:35→21:38)
[2017-10-31] MEDS: ZINC SULFATE 220 MG CAPSULE (FP) PO SCH (10:35)
[2017-10-31] MEDS: VITAMIN E 400 INTERNATIONAL-UNITS CAPSULE (FP) PO SCH (10:36)
--- NOTE | 2017-10-31 10:56 | EKG ---
Test Reason : Blood Pressure : / mmHG Vent. Rate : 095 BPM Atrial Rate : 089 BPM P-R Int : 000 ms QRS Dur : 142 ms QT Int : 366 ms P-R-T Axes : 000 -27 095 degrees QTc Int : 459 ms ATRIAL FIBRILLATION LEFT BUNDLE BRANCH BLOCK ABNORMAL ECG WHEN COMPARED WITH ECG OF 19-JAN-2016 17:03, ATRIAL FIBRILLATION HAS REPLACED SINUS RHYTHM Confirmed by MD VIKTORIA, DOTTY ([id number]) on 10/31/2017 10:55:39 AM Referred By: Confirmed By:DOTTY BLUM MD
--- NOTE | 2017-10-31 11:09 | PN ---
Progress Note, Physician Chief Complaint: Mr Torres says he is feeling dizzy and off balance today and has worsening hearing loss. He says that these symptoms have come and gone for the past year but have not been this severe or persistent. He says he otherwise feels fine and is without complaint. No longer febrile, no cp, sob, cough, n/v. - Current Medication List Current Medications: Active Medications Apixaban (Eliquis -) 2.5 mg PO BID [facility] Last Admin: 10/31/17 10:35 Dose: 2.5 mg Aspirin (Asa -) 81 mg PO Q3D@1000 [place] Atorvastatin Calcium (Lipitor -) 40 mg PO HS [place] Sodium Chloride (Normal Saline -) 1,000 mls @ 75 mls/hr IV ASDIR [facility] Last Admin: 10/31/17 02:49 Dose: 75 mls/hr Ceftriaxone Sodium 1 gm/ (Dextrose) 100 mls @ 200 mls/hr IVPB DAILY [facility]; Protocol Insulin Aspart (Novolog Vial Sliding Scale -) 1 vial SQ ACHS [facility]; Protocol Last Admin: 10/31/17 07:01 Dose: Not Given Lactobacillus Acidophilus (Bacid -) 1 tab PO DAILY [facility] Lisinopril (Prinivil) 2.5 mg PO DAILY [facility] Last Admin: 10/31/17 10:35 Dose: 2.5 mg Metoprolol Succinate (Toprol Xl -) 200 mg PO BID [facility] Last Admin: 10/31/17 10:36 Dose: 200 mg Pantoprazole Sodium (Protonix -) 20 mg PO DAILY [facility] Last Admin: 10/31/17 10:35 Dose: 20 mg Tamsulosin HCl (Flomax -) 0.4 mg PO BID [facility] Last Admin: 10/31/17 10:35 Dose: 0.4 mg Vitamin E (Vitamin E -) 800 unit PO DAILY [facility] Last Admin: 10/31/17 10:36 Dose: 800 unit Zinc Sulfate (Orazinc -) 220 mg PO DAILY [facility] Last Admin: 10/31/17 10:35 Dose: 220 mg - Objective Vital Signs: Vital Signs Temperature 37.3 C 10/31/17 07:39 Pulse Rate 96 H 10/31/17 10:33 Respiratory Rate 16 10/31/17 07:39 Blood Pressure 135/72 10/31/17 10:33 O2 Sat by Pulse Oximetry (%) 96 10/31/17 10:33 Constitutional: Yes: Well Nourished, No Distress, Calm Cardiovascular: Yes: Pulse Irregular. No: Tachycardia, Gallop, Murmur, Rub Respiratory: Yes: Regular, CTA Bilaterally. No: Rales, Rhonchi, Wheezes Gastrointestinal: Yes: Normal Bowel Sounds, Soft. No: Distention, Tenderness Extremities: Yes: WNL Edema: No Labs: CBC, BMP 10/31/17 06:20 10/31/17 06:20 Problem List - Problems (1) Atrial fibrillation with RVR Assessment/Plan: -patient recently found to have afib with rvr -new diagnosis -? if paroxysmal afib cause of vertigo -continue telemetry monitoring -continue toprol xl -eliquis started -cardiology consulted Code(s): I48.91 - UNSPECIFIED ATRIAL FIBRILLATION (2) Vertigo Assessment/Plan: -present for approximately 1 year -sporadic in nature -could be BPPV, patient with possible acute viral illness -however with possible undiagnosed afib, concern for cerebellar stroke -head CT negative -neurology consulted and defer MRI to their evaluation and recommendation -PT consult -continue meclizine -also with some hearing loss that comes and goes -ENT consult as well Code(s): R42 - DIZZINESS AND GIDDINESS (3) Acute bronchitis Assessment/Plan: -patient with fever in outpatient and productive cough -placed on steroids and azithromycin -feeling better today -continue rocephin currently -check urine antigens for pneumonia -clear, will hold on bronchodilators secondary to afib Code(s): J20.9 - ACUTE BRONCHITIS, UNSPECIFIED Qualifiers: Bronchitis organism: unspecified organism Qualified Code(s): J20.9 - Acute bronchitis, unspecified (4) Hyperlipidemia Assessment/Plan: -continue statin Code(s): E78.5 - HYPERLIPIDEMIA, UNSPECIFIED (5) Hypertension Assessment/Plan: -continue current regimen Code(s): I10 - ESSENTIAL (PRIMARY) HYPERTENSION (6) Prostate cancer Assessment/Plan: -s/p freezing Code(s): C61 - MALIGNANT NEOPLASM OF PROSTATE (7) Chronic UTI Assessment/Plan: -case d/w Dr Srivastava -chronic and without complaint Code(s): N39.0 - URINARY TRACT INFECTION, SITE NOT SPECIFIED (8) Hyperthyroidism Assessment/Plan: -decreased TSH and elevated FT4 -? if contributing to afib -endocrinology consult Code(s): E05.90 - THYROTOXICOSIS, UNSP WITHOUT THYROTOXIC CRISIS OR STORM (9) Diabetes Assessment/Plan: -continue home regimen Code(s): E11.9 - TYPE 2 DIABETES MELLITUS WITHOUT COMPLICATIONS Qualifiers: Diabetes mellitus type: type 2 Diabetes mellitus long-term insulin use: without vb net developer use Diabetes mellitus complication status: with unspecified complications Qualified Code(s): E11.8 - Type 2 diabetes mellitus with unspecified complications
[2017-10-31] MEDS ORDERED: CEFTRIAXONE 1 GM/50 ML BAG ONE (12:55)
[2017-10-31] MEDS: LACTOBACILLUS ACIDOPHILUS 1 TABLET PO SCH (13:16)
[2017-10-31] MEDS: CEFTRIAXONE 1 GM in DEXTROSE 5%-WATER - 50 ML IVPB SCH (13:16)
--- NOTE | 2017-10-31 14:50 | ECHO ---
Name: MAINOR SANDOVAL Exam:Adult Echocardiogram Study Date: 10/31/2017 08:51 AM Age: 87 yrs Reason For Study: r/o valvular dz Height: 66 in Weight: 150 lb BSA: 1.8 m2 MMode/2D Measurements & Calculations IVSd: 0.99 cm Ao root diam: 4.1 cm LVIDd: 4.7 cm LA dimension: 4.2 cm LVIDs: 3.0 cm ACS: 1.9 cm LVPWd: 0.91 cm IVSs: 1.3 cm LVPWs: 1.2 cm EDV(Teich): 100.8 ml ESV(Teich): 34.1 ml Doppler Measurements & Calculations Ao V2 max: 112.9 cm/sec TR max jeni: 250.6 cm/sec Ao max P.1 mmHg TR max P.2 mmHg Ao V2 mean: 85.4 cm/sec Ao mean P.2 mmHg Ao V2 VTI: 20.6 cm PI end-d jeni: 114.0 cm/sec Med Peak E' Jeni: 4.2 cm/sec Lat Peak E' Jeni: 7.6 cm/sec Procedure A complete two-dimensional transthoracic echocardiogram was performed (2D, M-mode, Doppler and color flow Doppler). The patient was in an abnormal rhythm during the exam. Left Ventricle The left ventricle is normal in size. There is normal left ventricular wall thickness. Left ventricul ar systolic function is mildly reduced. Ejection Fraction = 45%. There is mild global hypokinesis of the left ventricle. Septal motion is consistent with conduction abnormality. Right Ventricle The right ventricle is normal in size and function. Atria The left atrium is mildly dilated. Right atrial size is normal. Mitral Valve There is moderate mitral annular calcification. There is trace mitral regurgitation. Tricuspid Valve The tricuspid valve is not well visualized, but is grossly normal. There is mild tricuspid regurgitat ion. There is mild pulmonary hypertension. Aortic Valve There is moderate aortic sclerosis.;. No hemodynamically significant valvular aortic stenosis. Pulmonic Valve The pulmonic valve is not well seen, but is grossly normal. Mild pulmonic valvular regurgitation. Great Vessels Mild aortic root dilatation. Pericardium/Pleura There is no pericardial effusion. Interpretation Summary A complete two-dimensional transthoracic echocardiogram was performed (2D, M-mode, Doppler and color flow Doppler). The patient was in an abnormal rhythm during the exam. The left ventricle is normal in size. Left ventricular systolic function is mildly reduced. The left atrium is mildly dilated. There is trace mitral regurgitation. There is mild tricuspid regurgitation. There is mild pulmonary hypertension. There is moderate aortic sclerosis.; No hemodynamically significant valvular aortic stenosis. Mild pulmonic valvular regurgitation. Mild aortic root dilatation. MD Олег Ugalde 10/31/2017 02:49 PM
--- NOTE | 2017-10-31 17:55 | CONSULT ---
Consult - text type - Consultation Consultation Note: Neurology CHIEF COMPLAINT: Dizziness HISTORY OF PRESENT ILLNESS: 87M w/ pmhx of DM, GERD, HLD, prostate cx, esophageal cx, HTN sent for reported fever reportedly to 100.3. Reportedly was recently seen by his PCP, Dr. Srivastava, this past Monday for R ear congestion and cough with productive sputum and was given azithromycin and prednisone. Of note, pt did not complete medication regimen but symptoms progressed and since fever had increased from 99.7, patient was instructed to go to hospital per granddaughter who was at bedside. Has been seen by me in the office for gait and was being given Meclezine with good response but dizziness recurred. Completed CT head which did not show acute changes, discussed with granddaugter and will check MRI brain to confirm no structural abnormalities. Is getting Abx for possible underlying infection and there is concern about hearing loss he has been demonstrating. ENT has been consulted. May have underlying vestibular neuritis. Recent Travel: Denies PAST MEDICAL HISTORY: DM GERD HLD prostate cx esophageal cx HTN chronic recurrent UTIs PAST SURGICAL HISTORY: TURP [place] s/p stent placement x2 umbilical hernia repair L ankle sx removal of esophageal tumor Social History: Smoking: Admits to smoking for 70 years, 1pack/day but recently quit in 2013. He started smoking again July 2017 and stopped 2 weeks ago Alcohol: socially Drugs: uses marijuana once every 6 months Family History: Mother- colon cx Father- [place] Brother- Lung cx Daughter- breast cx Allergies No Known Drug Allergies Allergy (Verified 10/30/17 13:53) HOME MEDICATIONS: Home Medications Medication Instructions Recorded Aspirin [ASA -] 81 mg PO ASDIR 11/21/11 Glucosa Zaidi 2Kcl/Chondroitin Zaidi 1 each PO DAILY #0 capsule 11/24/11 [Glucosamine & Chondroitin Cap] Selenium 200 mcg PO DAILY #0 tablet 11/24/11 Ubidecarenone [Co Q-10] 400 mg PO DAILY #0 capsule 11/24/11 Vitamin E 1,000 unit PO DAILY #0 capsule 11/24/11 Zinc [Zinc Chelated] 50 mg PO DAILY #0 capsule 11/24/11 Omeprazole [Prilosec (RX)] 20 mg PO DAILY #0 capsule 01/23/12 Metformin HCl [Riomet] 500 mg PO DAILY 01/19/16 Tamsulosin HCl [Flomax] 0.4 mg PO BID 01/19/16 Meclizine HCl [Antivert -] 25 mg PO Q6H PRN #60 tablet 01/22/16 metFORMIN HCL [Glucophage -] 500 mg PO DAILY@0700 tablet 01/22/16 Atorvastatin Ca [Lipitor] 40 mg PO HS 10/30/17 Lisinopril [Zestril] 2.5 mg PO DAILY 10/30/17 Metoprolol Succinate [Toprol XL -] 200 mg PO BID 10/30/17 REVIEW OF SYSTEMS CONSTITUTIONAL: Absent: fever, chills, diaphoresis, generalized weakness, malaise, loss of appetite, weight change HEENT: Absent: rhinorrhea, nasal congestion, throat pain, throat swelling, difficulty swallowing, mouth swelling, ear pain, eye pain, visual changes CARDIOVASCULAR: +chest tightness, +lightheadedness Absent: chest pain, syncope, palpitations, irregular heart rate, peripheral edema RESPIRATORY: +cough, +dyspnea with exertion Absent: shortness of breath, , orthopnea, wheezing, stridor, hemoptysis GASTROINTESTINAL: Absent: abdominal pain, abdominal distension, nausea, vomiting, diarrhea, constipation, melena, hematochezia GENITOURINARY: Absent: dysuria, frequency, urgency, hesitancy, hematuria, flank pain, genital pain MUSCULOSKELETAL: Absent: myalgia, arthralgia, joint swelling, back pain, neck pain SKIN: Absent: rash, itching, pallor HEMATOLOGIC/IMMUNOLOGIC: Absent: easy bleeding, easy bruising, lymphadenopathy, frequent infections ENDOCRINE: Absent: unexplained weight gain, unexplained weight loss, heat intolerance, cold intolerance NEUROLOGIC: +dizziness, +unsteady gait Absent: headache, focal weakness or paresthesias, seizure, mental status changes , bladder or bowel incontinence PSYCHIATRIC: +depression Absent: anxiety, suicidal or homicidal ideation, hallucinations. PHYSICAL EXAMINATION Vital Signs Period Temp Pulse Resp BP Sys/Walls Pulse Ox Last 24 Hr 96.6 F-99.2 F 75-96 16-18 124-141/51-72 92-96 GENERAL: AAOx3. NAD. Well-appearing. HEENT: AT/NC. EOMI. Dry mucus membranes. NECK: Normal range of motion, supple without lymphadenopathy, JVD, or masses. LUNGS: CTA B/L. No wheezes, rhonchi, rales noted. No accessory muscle use. HEART: Regular rate and rhythm, normal S1 and S2 without murmur, rub or gallop. ABDOMEN: Soft NT/ND. Normoactive BS in all 4Q's. Umbilical hernia. MUSCULOSKELETAL: Normal range of motion at all joints. No bony deformities or tenderness. No CVA tenderness. UPPER EXTREMITIES: 2+ pulses, warm, well-perfused. No cyanosis. No clubbing. No peripheral edema. 5/5 muscle strength b/l. LOWER EXTREMITIES: 2+ pulses, warm, well-perfused. No calf tenderness. No peripheral edema. 5/5 muscle strength b/l. NEUROLOGICAL: No facial droop, b/l hearing loss, facial sensation intact, strenght intact, finger to nose normal, gait deferred PSYCHIATRIC: Cooperative. Good eye contact. Appropriate mood and affect. SKIN: Warm, dry, normal turgor, no rashes or lesions noted, normal capillary refill. Laboratory Results - last 24 hr 10/30/17 10/30/17 10/30/17 15:20 15:25 15:25 WBC 14.1 H RBC 3.91 L Hgb 11.9 Hct 36.3 MCV 92.9 MCH 30.4 MCHC 32.8 RDW 13.8 Plt Count 468 H D MPV 7.8 Absolute Neuts (auto) 10.6 H Neutrophils % 75.6 D Lymphocytes % 11.6 D Monocytes % 12.0 H Eosinophils % 0.3 D Basophils % 0.5 Nucleated RBC % 0 Sodium 134 L Cancelled Potassium 5.1 Cancelled Chloride 107 Cancelled Carbon Dioxide 26 Cancelled Anion Gap 1 L Cancelled BUN 22 H Cancelled Creatinine 1.1 Cancelled Creat Clearance w eGFR > 60 Cancelled Random Glucose 107 H Cancelled Calcium 9.5 Cancelled Total Bilirubin 0.2 Cancelled AST 14 L Cancelled ALT 22 Cancelled Alkaline Phosphatase 63 Cancelled Creatine Kinase 49 Cancelled Troponin I 0.02 Cancelled Total Protein 6.7 Cancelled Albumin 3.0 L Cancelled TSH 0.08 L Cancelled Urine Color Urine Appearance Urine pH Ur Specific [place] Urine Protein Urine Glucose (UA) Urine Ketones Urine Blood Urine Nitrite Urine Bilirubin Urine Urobilinogen Ur Leukocyte Esterase Urine WBC (Auto) Urine RBC (Auto) Ur Epithelial Cells Urine Bacteria Hyaline Casts Urine Mucus 10/30/17 17:05 WBC RBC Hgb Hct MCV MCH MCHC RDW Plt Count MPV Absolute Neuts (auto) Neutrophils % Lymphocytes % Monocytes % Eosinophils % Basophils % Nucleated RBC % Sodium Potassium Chloride Carbon Dioxide Anion Gap BUN Creatinine Creat Clearance w eGFR Random Glucose Calcium Total Bilirubin AST ALT Alkaline Phosphatase Creatine Kinase Troponin I Total Protein Albumin TSH Urine Color Yellow Urine Appearance Slcloudy Urine pH 6.0 Ur Specific [place] 1.012 Urine Protein Negative Urine Glucose (UA) Negative Urine Ketones Negative Urine Blood Negative Urine Nitrite Positive Urine Bilirubin Negative Urine Urobilinogen Negative Ur Leukocyte Esterase 3+ H Urine WBC (Auto) 152 Urine RBC (Auto) 4 Ur Epithelial Cells Rare Urine Bacteria Many Hyaline Casts 4 Urine Mucus Rare ASSESSMENT/PLAN: 87M w/ pmhx of DM, GERD, HLD, prostate cx, esophageal cx, HTN sent for reported fever reportedly to 100.3. Reportedly was recently seen by his PCP, Dr. Srivastava, this past Monday for R ear congestion and cough with productive sputum and was given azithromycin and prednisone. Of note, pt did not complete medication regimen but symptoms progressed and since fever had increased from 99.7, patient was instructed to go to hospital per granddaughter who was at bedside. Has been seen by me in the office for gait and was being given Meclezine with good response but dizziness recurred. Completed CT head which did not show acute changes, discussed with granddaugter and will check MRI brain to confirm no structural abnormalities. Is getting Abx for possible underlying infection and there is concern about hearing loss he has been demonstrating. ENT has been consulted. May have underlying vestibular neuritis. Continue mgmt for infection. Also with Afib, cardiology evaluation, tele monitoring. Monitor blood pressure, maintain normotensive range. Adequate hydration recommend, avoid sudden head movement, physical therapy as tolerated.
[2017-10-31] MEDS ORDERED: PT OWN MED DRAWER 7, Y5N ONE (21:10)
[2017-10-31] MEDS: ATORVASTATIN CA 40 MG TABLET (FP) PO SCH (21:38)
[2017-11-01] MEDS: SODIUM CHLORIDE 1,000 ML IV SCH ×2 (04:44→21:26)
[2017-11-01] MEDS: INSULIN SLIDING SCALE (NOVOLOG) 1 VIAL SQ SCH ×4 (06:03→21:29)
[2017-11-01 07:11] LABS: BASO % 0.6 % (0-2.0); EOS % 2.4 % (0-4.5); HEMATOCRIT 35.9 % (35.4-49); HEMOGLOBIN 11.8 GM/dL (11.7-16.9); LYMPH % 19.6 % (8-40); MCH 30.2 pg (25.7-33.7); MCHC 32.8 g/dl (32.0-35.9); MEAN PLT VOLUME 7.1 fl (7.5-11.1); MONO % 13.4 % (3.8-10.2); PLATELET COUNT 453 K/MM3 (134-434); RDW 14.1 % (11.9-15.9); WHITE BLOOD COUNT 9.6 K/mm3 (4.0-10.0)
[2017-11-01 07:32] LABS: ANION GAP 8 MMOL/L (8-16); BLOOD UREA NITROGEN 18 mg/dL (7-18); CALCIUM 8.8 mg/dL (8.5-10.1); CHLORIDE 104 mmol/L (98-107); CO2 27 mmol/L (21-32); CREATININE 1.2 mg/dL (0.55-1.3); GLUCOSE,RANDOM 96 mg/dL (74-106); PHOSPHOROUS 3.4 mg/dL (2.5-4.9); POTASSIUM 4.8 mmol/L (3.5-5.1); SODIUM 140 mmol/L (136-145)
--- NOTE | 2017-11-01 09:21 | PN ---
Progress Note (short form) - Note Progress Note: Neurology HISTORY OF PRESENT ILLNESS: 87M w/ pmhx of DM, GERD, HLD, prostate cx, esophageal cx, HTN sent for reported fever reportedly to 100.3. Reportedly was recently seen by his PCP, Dr. Srivastava, this past Monday for R ear congestion and cough with productive sputum and was given azithromycin and prednisone. Of note, pt did not complete medication regimen but symptoms progressed and since fever had increased from 99.7, patient was instructed to go to hospital per granddaughter who was at bedside at initial visit. Had been seen by me in the office for gait and was being given Meclezine with good response but dizziness recurred. Completed CT head which did not showed no acute changes, discussed with granddaugter at initial visit. Ordered MRI brain, completed and reviewed, discussed with patient, no structural abnormalities. Patient was reassured by this. Is getting Abx for possible underlying infection and there is concern about hearing loss he has been demonstrating. ENT has been consulted. May have underlying vestibular neuritis. Allergies No Known Drug Allergies Allergy (Verified 10/30/17 13:53) Active Medications Apixaban (Eliquis -) 2.5 mg PO BID [facility] Last Admin: 10/31/17 21:38 Dose: 2.5 mg Aspirin (Asa -) 81 mg PO Q3D@1000 [facility] Atorvastatin Calcium (Lipitor -) 40 mg PO HS [facility] Last Admin: 10/31/17 21:38 Dose: 40 mg Sodium Chloride (Normal Saline -) 1,000 mls @ 75 mls/hr IV ASDIR [facility] Last Admin: 11/01/17 04:44 Dose: 75 mls/hr Ceftriaxone Sodium 1 gm/ (Dextrose) 50 mls @ 100 mls/hr IVPB DAILY [facility]; Protocol Last Admin: 10/31/17 13:16 Dose: 100 mls/hr Insulin Aspart (Novolog Vial Sliding Scale -) 1 vial SQ ACHS [facility]; Protocol Last Admin: 11/01/17 06:03 Dose: Not Given Lactobacillus Acidophilus (Bacid -) 1 tab PO DAILY [facility] Last Admin: 10/31/17 13:16 Dose: 1 tab Lisinopril (Prinivil) 2.5 mg PO DAILY [facility] Last Admin: 10/31/17 10:35 Dose: 2.5 mg Metoprolol Succinate (Toprol Xl -) 200 mg PO BID [facility] Last Admin: 10/31/17 21:38 Dose: 200 mg Pantoprazole Sodium (Protonix -) 20 mg PO DAILY [facility] Last Admin: 10/31/17 10:35 Dose: 20 mg Tamsulosin HCl (Flomax -) 0.4 mg PO BID [facility] Last Admin: 10/31/17 21:38 Dose: 0.4 mg Vitamin E (Vitamin E -) 800 unit PO DAILY [facility] Last Admin: 10/31/17 10:36 Dose: 800 unit Zinc Sulfate (Orazinc -) 220 mg PO DAILY [facility] Last Admin: 10/31/17 10:35 Dose: 220 mg PHYSICAL EXAMINATION Vital Signs Period Temp Pulse Resp BP Sys/Walls Pulse Ox Last 24 Hr 97.9 F-98.1 F 73-105 18-20 112-138/51-72 95-96 GENERAL: AAOx3. NAD. Well-appearing. HEENT: AT/NC. EOMI. Dry mucus membranes. NECK: Normal range of motion, supple without lymphadenopathy, JVD, or masses. LUNGS: CTA B/L. No wheezes, rhonchi, rales noted. No accessory muscle use. HEART: Regular rate and rhythm, normal S1 and S2 without murmur, rub or gallop. ABDOMEN: Soft NT/ND. Normoactive BS in all 4Q's. Umbilical hernia. MUSCULOSKELETAL: Normal range of motion at all joints. No bony deformities or tenderness. No CVA tenderness. UPPER EXTREMITIES: 2+ pulses, warm, well-perfused. No cyanosis. No clubbing. No peripheral edema. 5/5 muscle strength b/l. LOWER EXTREMITIES: 2+ pulses, warm, well-perfused. No calf tenderness. No peripheral edema. 5/5 muscle strength b/l. NEUROLOGICAL: No facial droop, b/l hearing loss, facial sensation intact, strenght intact, finger to nose normal, gait deferred PSYCHIATRIC: Cooperative. Good eye contact. Appropriate mood and affect. SKIN: Warm, dry, normal turgor, no rashes or lesions noted, normal capillary refill. CBCD WBC 9.6 K/mm3 (4.0-10.0) 11/01/17 06:00 RBC 3.90 M/mm3 (4.00-5.60) L 11/01/17 06:00 Hgb 11.8 GM/dL (11.7-16.9) 11/01/17 06:00 Hct 35.9 % (35.4-49) 11/01/17 06:00 MCV 92.0 fl (80-96) 11/01/17 06:00 MCHC 32.8 g/dl (32.0-35.9) 11/01/17 06:00 RDW 14.1 % (11.9-15.9) 11/01/17 06:00 Plt Count 453 K/MM3 (134-434) H 11/01/17 06:00 MPV 7.1 fl (7.5-11.1) L 11/01/17 06:00 CMP Sodium 140 mmol/L (136-145) 11/01/17 06:00 Potassium 4.8 mmol/L (3.5-5.1) 11/01/17 06:00 Chloride 104 mmol/L (98-107) 11/01/17 06:00 Carbon Dioxide 27 mmol/L (21-32) 11/01/17 06:00 Anion Gap 8 MMOL/L (8-16) 11/01/17 06:00 BUN 18 mg/dL (7-18) 11/01/17 06:00 Creatinine 1.2 mg/dL (0.55-1.3) 11/01/17 06:00 Creat Clearance w eGFR 57.41 (>60) 11/01/17 06:00 Random Glucose 96 mg/dL (74-106) 11/01/17 06:00 Calcium 8.8 mg/dL (8.5-10.1) 11/01/17 06:00 Total Bilirubin 0.2 mg/dL (0.2-1) 10/31/17 06:20 AST 11 U/L (15-37) L 10/31/17 06:20 ALT 18 U/L (13-61) 10/31/17 06:20 Alkaline Phosphatase 57 U/L (45-117) 10/31/17 06:20 Total Protein 5.8 g/dl (6.4-8.2) L 10/31/17 06:20 Albumin 2.6 g/dl (3.4-5.0) L 10/31/17 06:20 CARDIAC ENZYMES Creatine Kinase Cancelled 10/30/17 15:25 Troponin I Cancelled 10/30/17 15:25 ASSESSMENT/PLAN: 87M w/ pmhx of DM, GERD, HLD, prostate cx, esophageal cx, HTN sent for reported fever reportedly to 100.3. Reportedly was recently seen by his PCP, Dr. Srivastava, this past Monday for R ear congestion and cough with productive sputum and was given azithromycin and prednisone. Of note, pt did not complete medication regimen but symptoms progressed and since fever had increased from 99.7, patient was instructed to go to hospital per granddaughter who was at bedside. Has been seen by me in the office for gait and was being given Meclezine with good response but dizziness recurred. Completed CT head which did not show acute changes, MRI brain also without structural abnormalities. Is getting Abx, Ceftriazone, for possible underlying infection and there is concern about hearing loss he has been demonstrating. ENT has been consulted. May have underlying vestibular neuritis. Continue mgmt for infection. Also with Afib, cardiology evaluation, tele monitoring. Monitor blood pressure, maintain normotensive range. Adequate hydration recommend, avoid sudden head movement, physical therapy as tolerated.
[2017-11-01] MEDS ORDERED: PT OWN MED DRAWER 7, Y5N ONE (09:38)
[2017-11-01] MEDS: ZINC SULFATE 220 MG CAPSULE (FP) PO SCH (09:47)
[2017-11-01] MEDS: LISINOPRIL 5 MG TABLET (FP) PO SCH (09:47)
[2017-11-01] MEDS: LACTOBACILLUS ACIDOPHILUS 1 TABLET PO SCH (09:47)
[2017-11-01] MEDS: APIXABAN 2.5 MG TABLET PO SCH (09:47)
[2017-11-01] MEDS: PANTOPRAZOLE 20 MG TABLET (FP) PO SCH (09:47)
[2017-11-01] MEDS: TAMSULOSIN HCL 0.4 MG CAP.ER.24H (FP) PO SCH ×2 (09:47→21:26)
[2017-11-01] MEDS: VITAMIN E 400 INTERNATIONAL-UNITS CAPSULE (FP) PO SCH (09:48)
[2017-11-01] MEDS ORDERED: cefTRIAXone SODIUM 1 GM VIAL ONE (10:00)
[2017-11-01] MEDS ORDERED: DEXTROSE 5%-WATER - 50 ML IVPB ONE (10:01)
[2017-11-01] MEDS: CEFTRIAXONE 1 GM in DEXTROSE 5%-WATER - 50 ML IVPB SCH (10:10)
--- NOTE | 2017-11-01 11:40 | EKG ---
Test Reason : Blood Pressure : / mmHG Vent. Rate : 112 BPM Atrial Rate : 090 BPM P-R Int : 000 ms QRS Dur : 142 ms QT Int : 350 ms P-R-T Axes : 000 -40 101 degrees QTc Int : 477 ms ATRIAL FIBRILLATION WITH RAPID VENTRICULAR RESPONSE WITH PREMATURE VENTRICULAR OR ABERRANTLY CONDUCTED COMPLEXES LEFT AXIS DEVIATION LEFT BUNDLE BRANCH BLOCK ABNORMAL ECG WHEN COMPARED WITH ECG OF 19-JAN-2016 17:03, ATRIAL FIBRILLATION HAS REPLACED SINUS RHYTHM VENT. RATE HAS INCREASED BY 53 BPM Confirmed by KASEY VELARDE, TASHA ([id number]) on 11/01/2017 11:40:05 AM Referred By: Confirmed By:TASHA PARKS MD
--- NOTE | 2017-11-01 12:04 | PN ---
Progress Note, Physician Chief Complaint: Mr Torres says he is feeling better today. Walked with PT who helped him focus and that helped with the dizziness. Feels that his hearing is better today. No cp, sob, n/v. - Current Medication List Current Medications: Active Medications Apixaban (Eliquis -) 2.5 mg PO BID [facility] Last Admin: 11/01/17 09:47 Dose: 2.5 mg Aspirin (Asa -) 81 mg PO Q3D@1000 [facility] Atorvastatin Calcium (Lipitor -) 40 mg PO HS [facility] Last Admin: 10/31/17 21:38 Dose: 40 mg Sodium Chloride (Normal Saline -) 1,000 mls @ 75 mls/hr IV ASDIR [facility] Last Admin: 11/01/17 04:44 Dose: 75 mls/hr Ceftriaxone Sodium 1 gm/ (Dextrose) 50 mls @ 100 mls/hr IVPB DAILY [facility]; Protocol Last Admin: 11/01/17 10:10 Dose: 100 mls/hr Insulin Aspart (Novolog Vial Sliding Scale -) 1 vial SQ ACHS [facility]; Protocol Last Admin: 11/01/17 06:03 Dose: Not Given Lactobacillus Acidophilus (Bacid -) 1 tab PO DAILY [facility] Last Admin: 11/01/17 09:47 Dose: 1 tab Lisinopril (Prinivil) 2.5 mg PO DAILY [facility] Last Admin: 11/01/17 09:47 Dose: 2.5 mg Metoprolol Succinate (Toprol Xl -) 200 mg PO BID [facility] Last Admin: 11/01/17 09:47 Dose: 200 mg Pantoprazole Sodium (Protonix -) 20 mg PO DAILY [facility] Last Admin: 11/01/17 09:47 Dose: 20 mg Tamsulosin HCl (Flomax -) 0.4 mg PO BID [facility] Last Admin: 11/01/17 09:47 Dose: 0.4 mg Vitamin E (Vitamin E -) 800 unit PO DAILY [facility] Last Admin: 11/01/17 09:48 Dose: 800 unit Zinc Sulfate (Orazinc -) 220 mg PO DAILY [facility] Last Admin: 11/01/17 09:47 Dose: 220 mg - Objective Vital Signs: Vital Signs Temperature 36.6 C 11/01/17 10:00 Pulse Rate 89 11/01/17 10:00 Respiratory Rate 18 11/01/17 10:00 Blood Pressure 134/69 11/01/17 10:00 O2 Sat by Pulse Oximetry (%) 93 L 11/01/17 10:00 Constitutional: Yes: Well Nourished, No Distress, Calm Cardiovascular: Yes: Pulse Irregular. No: Tachycardia, Gallop, Murmur, Rub Respiratory: Yes: Regular, CTA Bilaterally. No: Rales, Rhonchi, Wheezes Gastrointestinal: Yes: Normal Bowel Sounds, Soft. No: Distention, Tenderness Extremities: Yes: WNL Edema: No Labs: CBC, BMP 11/01/17 06:00 11/01/17 06:00 Problem List - Problems (1) Atrial fibrillation with RVR Code(s): I48.91 - UNSPECIFIED ATRIAL FIBRILLATION (2) Vertigo Code(s): R42 - DIZZINESS AND GIDDINESS (3) Acute bronchitis Code(s): J20.9 - ACUTE BRONCHITIS, UNSPECIFIED Qualifiers: Bronchitis organism: unspecified organism Qualified Code(s): J20.9 - Acute bronchitis, unspecified (4) Hyperlipidemia Code(s): E78.5 - HYPERLIPIDEMIA, UNSPECIFIED (5) Hypertension Code(s): I10 - ESSENTIAL (PRIMARY) HYPERTENSION (6) Prostate cancer Code(s): C61 - MALIGNANT NEOPLASM OF PROSTATE (7) Chronic UTI Code(s): N39.0 - URINARY TRACT INFECTION, SITE NOT SPECIFIED (8) Hyperthyroidism Code(s): E05.90 - THYROTOXICOSIS, UNSP WITHOUT THYROTOXIC CRISIS OR STORM (9) Diabetes Code(s): E11.9 - TYPE 2 DIABETES MELLITUS WITHOUT COMPLICATIONS Qualifiers: Diabetes mellitus type: type 2 Diabetes mellitus bridge painter insulin use: without bridge painter use Diabetes mellitus complication status: with unspecified complications Qualified Code(s): E11.8 - Type 2 diabetes mellitus with unspecified complications Assessment/Plan (1) Atrial fibrillation with RVR Assessment/Plan: -continue toprol xl and eliquis -attempted to contact Dr Baker but unsuccessful -will change cardiology consult and await further recommendations Code(s): I48.91 - UNSPECIFIED ATRIAL FIBRILLATION (2) Vertigo Assessment/Plan: -not secondary to CVA -appreciate neurology and PT assistance -ENT consult pending Code(s): R42 - DIZZINESS AND GIDDINESS (3) Acute bronchitis Assessment/Plan: -improved -continue current regimen Code(s): J20.9 - ACUTE BRONCHITIS, UNSPECIFIED Qualifiers: Bronchitis organism: unspecified organism Qualified Code(s): J20.9 - Acute bronchitis, unspecified (4) Hyperlipidemia Assessment/Plan: -continue statin Code(s): E78.5 - HYPERLIPIDEMIA, UNSPECIFIED (5) Hypertension Assessment/Plan: -continue current regimen Code(s): I10 - ESSENTIAL (PRIMARY) HYPERTENSION (6) Prostate cancer Assessment/Plan: -s/p freezing Code(s): C61 - MALIGNANT NEOPLASM OF PROSTATE (7) Chronic UTI Assessment/Plan: -case d/w Dr Srivastava -chronic and without complaint -follow up urine culture Code(s): N39.0 - URINARY TRACT INFECTION, SITE NOT SPECIFIED (8) Hyperthyroidism Assessment/Plan: -decreased TSH and elevated FT4 -? if contributing to afib -endocrinology consulted, awaiting recommendations Code(s): E05.90 - THYROTOXICOSIS, UNSP WITHOUT THYROTOXIC CRISIS OR STORM (9) Diabetes Assessment/Plan: -continue home regimen Code(s): E11.9 - TYPE 2 DIABETES MELLITUS WITHOUT COMPLICATIONS Qualifiers: Diabetes mellitus type: type 2 Diabetes mellitus bridge painter insulin use: without bridge painter use Diabetes mellitus complication status: with unspecified complications Qualified Code(s): E11.8 - Type 2 diabetes mellitus with unspecified complications
--- NOTE | 2017-11-01 17:31 | CON.CARD ---
Cardiology Consult (text) - Consultation Consultation Note: cc: vertigo hpi: 87 m hx vertigo, dm, copd, htn, hld, lbbb, cad s/p mi/pci 2004, syst chf, here with vertigo. Recent uri sxs as outpt, got abx and prednisone, then vertigo started to bother him with excessive dizziness so came to ER. Also found to have new onset afib. Also with hearing loss. Currently no cp, sob palps dizzy loc pnd orthopnea le edema. Sees dr nolvia bolton for cardio. pmh: per hpi psh: cataracts social: ex tob fam: no premature cad, scd ros: per hpi; no vomiting, diarrhea, vision changes, muscle pain, gib hematuria dysuria, wt loss meds: Home Medications Medication Instructions Recorded Aspirin [ASA -] 81 mg PO ASDIR 11/21/11 Glucosa Zaidi 2Kcl/Chondroitin Zaidi 1 each PO DAILY #0 capsule 11/24/11 [Glucosamine & Chondroitin Cap] Selenium 200 mcg PO DAILY #0 tablet 11/24/11 Ubidecarenone [Co Q-10] 400 mg PO DAILY #0 capsule 11/24/11 Vitamin E 1,000 unit PO DAILY #0 capsule 11/24/11 Zinc [Zinc Chelated] 50 mg PO DAILY #0 capsule 11/24/11 Omeprazole [Prilosec (RX)] 20 mg PO DAILY #0 capsule 01/23/12 Metformin HCl [Riomet] 500 mg PO DAILY 01/19/16 Tamsulosin HCl [Flomax] 0.4 mg PO BID 01/19/16 Meclizine HCl [Antivert -] 25 mg PO Q6H PRN #60 tablet 01/22/16 metFORMIN HCL [Glucophage -] 500 mg PO DAILY@0700 tablet 01/22/16 Atorvastatin Ca [Lipitor] 40 mg PO HS 10/30/17 Lisinopril [Zestril] 2.5 mg PO DAILY 10/30/17 Metoprolol Succinate [Toprol XL -] 200 mg PO BID 10/30/17 pe: Vital Signs Period Temp Pulse Resp BP Sys/Walls Pulse Ox Last 24 Hr 97.9 F-98.1 F 73-105 16-20 107-138/51-72 93 nad no jvd irreg s1s2 no mrg cta bl nl eff aaox3 no le e/c/c abd nt nd pos bs no jaundice diaphoresis pos dp pt no carotid bruits Laboratory Last Values WBC 9.6 K/mm3 (4.0-10.0) 11/01/17 06:00 RBC 3.90 M/mm3 (4.00-5.60) L 11/01/17 06:00 Hgb 11.8 GM/dL (11.7-16.9) 11/01/17 06:00 Hct 35.9 % (35.4-49) 11/01/17 06:00 MCV 92.0 fl (80-96) 11/01/17 06:00 MCH 30.2 pg (25.7-33.7) 11/01/17 06:00 MCHC 32.8 g/dl (32.0-35.9) 11/01/17 06:00 RDW 14.1 % (11.9-15.9) 11/01/17 06:00 Plt Count 453 K/MM3 (134-434) H 11/01/17 06:00 MPV 7.1 fl (7.5-11.1) L 11/01/17 06:00 Absolute Neuts (auto) 6.1 K/mm3 (1.5-8.0) 11/01/17 06:00 Neutrophils % 64.0 % (42.8-82.8) 11/01/17 06:00 Lymphocytes % 19.6 % (8-40) 11/01/17 06:00 Monocytes % 13.4 % (3.8-10.2) H 11/01/17 06:00 Eosinophils % 2.4 % (0-4.5) D 11/01/17 06:00 Basophils % 0.6 % (0-2.0) 11/01/17 06:00 Nucleated RBC % 0 % (0-0) 11/01/17 06:00 Sodium 140 mmol/L (136-145) 11/01/17 06:00 Potassium 4.8 mmol/L (3.5-5.1) 11/01/17 06:00 Chloride 104 mmol/L (98-107) 11/01/17 06:00 Carbon Dioxide 27 mmol/L (21-32) 11/01/17 06:00 Anion Gap 8 MMOL/L (8-16) 11/01/17 06:00 BUN 18 mg/dL (7-18) 11/01/17 06:00 Creatinine 1.2 mg/dL (0.55-1.3) 11/01/17 06:00 Creat Clearance w eGFR 57.41 (>60) 11/01/17 06:00 POC Glucometer 111 UNITS (80-120) 11/01/17 16:13 Random Glucose 96 mg/dL (74-106) 11/01/17 06:00 Calcium 8.8 mg/dL (8.5-10.1) 11/01/17 06:00 Phosphorus 3.4 mg/dL (2.5-4.9) 11/01/17 06:00 Magnesium 2.0 mg/dL (1.8-2.4) 11/01/17 06:00 Total Bilirubin 0.2 mg/dL (0.2-1) 10/31/17 06:20 AST 11 U/L (15-37) L 10/31/17 06:20 ALT 18 U/L (13-61) 10/31/17 06:20 Alkaline Phosphatase 57 U/L (45-117) 10/31/17 06:20 Creatine Kinase Cancelled 10/30/17 15:25 Troponin I Cancelled 10/30/17 15:25 Total Protein 5.8 g/dl (6.4-8.2) L 10/31/17 06:20 Albumin 2.6 g/dl (3.4-5.0) L 10/31/17 06:20 TSH Cancelled 10/30/17 15:25 Free T4 1.32 ng/dl (0.76-1.16) H 10/31/17 06:20 Free T3 2.8 pg/ml (2.0-4.4) 10/31/17 06:20 Urine Color Yellow 10/30/17 17:05 Urine Appearance Slcloudy 10/30/17 17:05 Urine pH 6.0 (5.0-8.0) 10/30/17 17:05 Ur Specific [place] 1.012 (1.001-1.035) 10/30/17 17:05 Urine Protein Negative (NEGATIVE) 10/30/17 17:05 Urine Glucose (UA) Negative (NEGATIVE) 10/30/17 17:05 Urine Ketones Negative (NEGATIVE) 10/30/17 17:05 Urine Blood Negative (NEGATIVE) 10/30/17 17:05 Urine Nitrite Positive (NEGATIVE) 10/30/17 17:05 Urine Bilirubin Negative (<2.0 mg/dL) 10/30/17 17:05 Urine Urobilinogen Negative mg/dL (0.2-1.0) 10/30/17 17:05 Ur Leukocyte Esterase 3+ (NEGATIVE) H 10/30/17 17:05 Urine WBC (Auto) 152 /hpf (3-5) 10/30/17 17:05 Urine RBC (Auto) 4 /hpf (0-3) 10/30/17 17:05 Ur Epithelial Cells Rare /HPF (FEW) 10/30/17 17:05 Urine Bacteria Many /hpf (NONE SEEN) 10/30/17 17:05 Hyaline Casts 4 /lpf 10/30/17 17:05 Urine Mucus Rare 10/30/17 17:05 cxr: no chf ecg: afib, old lbbb tele: afib, rate 90s-low 100s carotids 11/2016: no sig stenosis mibi 07/2016: apical infarct, no ischemia, lvef 40% echo 10/2017: nl lv size, lvef 45, global hk, nl rv, mild lae, mild tr, mild pr, mild phtn, mild ao root dil echo 07/2016: lvef 40% a/p: 87 m hx vertigo, dm, copd, htn, hld, lbbb, cad s/p mi/pci 2004, syst chf, here with vertigo. vertigo: -improved, ent consult pending afib: -newly found here -cont bb, monitor tele -[facility] ac, continue eliquis at 5 mg bid htn: -controlled on current meds hld: -cont statin cad: -stable, no angina -no ischemia on recent mibi -cont statin, asa, bb, shama chronic systolic chf: -stable, euvolemic -cont bb, shama -echo here similar to priors
--- NOTE | 2017-11-01 20:06 | CON.ENT ---
Consult Referred by:: ENT Reason for Consultation:: hearing loss - History of Present Illness Chief Complaint: hearing loss History of Present Illness: 87 yo M with known hyearing loss, has hearing aids from [facility] x at last 5 years but does not use them very often reports recent change in his hearing right ear which became worse and is now improving over the past few days, no pain or drainage, hears clicking in his eaqrs and describes a sound or sensation of fluid. also recent dizziness saw Dr. Mabry regarding a gait problem and was rx meclizine - History Source History Provided By: Patient Limitations to Obtaining History: No Limitations - Past Medical History Cardio/Vascular: Yes: CAD, HTN, Hyperlipdemia Pulmonary: Yes: COPD (former smoker stopped in the past year) Renal/: Yes: Cancer (Prostate), UTI (chronic recurrent). No: Renal Failure Musculoskeletal: Yes: Osteoarthritis Endocrine: Yes: Diabetes Mellitus - Past Surgical History Past Surgical History: Yes: TURP - Alcohol/Substance Use Hx Alcohol Use: No - Smoking History Smoking history: Former smoker Have you smoked in the past 12 months: Yes Aproximately how many cigarettes per day: 2 If you are a former smoker, when did you quit?: quit once in 2013 then again in 2018 - Social History ADL: Independent History of Recent Travel: No Home Medications - Allergies Allergies/Adverse Reactions: Allergies Allergy/AdvReac Type Severity Reaction Status Date / Time No Known Drug Allergies Allergy Verified 10/30/17 13:53 - Home Medications Home Medications: Ambulatory Orders Aspirin [ASA -] 81 mg PO ASDIR 11/21/11 Glucosa Zaidi 2Kcl/Chondroitin Zaidi [Glucosamine & Chondroitin Cap] 1 each PO DAILY # 0 capsule 11/24/11 Selenium 200 mcg PO DAILY #0 tablet 11/24/11 Ubidecarenone [Co Q-10] 400 mg PO DAILY #0 capsule 11/24/11 Vitamin E 1,000 unit PO DAILY #0 capsule 11/24/11 Zinc [Zinc Chelated] 50 mg PO DAILY #0 capsule 11/24/11 Omeprazole [Prilosec (RX)] 20 mg PO DAILY #0 capsule 01/23/12 Metformin HCl [Riomet] 500 mg PO DAILY 01/19/16 Tamsulosin HCl [Flomax] 0.4 mg PO BID 01/19/16 Meclizine HCl [Antivert -] 25 mg PO Q6H PRN #60 tablet 01/22/16 metFORMIN HCL [Glucophage -] 500 mg PO DAILY@0700 tablet 01/22/16 Atorvastatin Ca [Lipitor] 40 mg PO HS 10/30/17 Lisinopril [Zestril] 2.5 mg PO DAILY 10/30/17 Metoprolol Succinate [Toprol XL -] 200 mg PO BID 10/30/17 Physical Exam-ENT Vital Signs: Vital Signs Temperature 98.1 F 11/01/17 14:05 Pulse Rate 92 H 11/01/17 14:05 Respiratory Rate 16 11/01/17 14:05 Blood Pressure 107/69 11/01/17 14:05 O2 Sat by Pulse Oximetry (%) 93 L 11/01/17 10:00 Constitutional: Yes: No Distress Head: Yes: WNL Face: Yes: WNL Eyes: Yes: WNL Nose: Yes: Septum Deviated Outer Ear: Yes: WNL Ear Canal: Yes: Cerumen Tympanic Membrane: Yes: WNL Neck: Yes: WNL Respiratory: Yes: WNL Imaging - Results Chest X-ray: Report Reviewed Cat Scan: Report Reviewed, Image Reviewed MRI: Report Reviewed Problem List - Problems (1) Hearing loss Assessment/Plan: chronic hearing loss, hearing aid user but does not use regularly severe in degree on exam pt describes recent change right ear which is now improving possible Euystachjian tube dysfunction, acute serous otitis media no obvious fluid on exam, cerumen removed, CT scan of brain shows mild effusion Recommend: wax removed to office after discharge for audiogram use hearing aids regularly Code(s): H91.90 - UNSPECIFIED HEARING LOSS, UNSPECIFIED EAR Qualifiers: Hearing loss type: sensorineural Laterality: bilateral Qualified Code(s) : H90.3 - Sensorineural hearing loss, bilateral
[2017-11-01] MEDS: ATORVASTATIN CA 40 MG TABLET (FP) PO SCH (21:26)
[2017-11-01] MEDS: APIXABAN 5 MG TABLET PO SCH (21:26)
--- NOTE | 2017-11-02 00:02 | CONSULT ---
Consult Consult Specialty:: endocrine Referred by:: dr.stephen vargas Reason for Consultation:: hyperthyroidism - History of Present Illness Chief Complaint: acute hearing loss History of Present Illness: 87M w/ pmhx of DM, GERD, HLD, prostate cx, esophageal cx, HTN was recently seen by his PCP, Dr. Srivastava, this past Monday for R ear congestion and cough with productive sputum and was given azithromycin and prednisone. did not complete treatment course.subsequently found to have low grade temp 100.3 F,afib, and developed worsening hearing loss,his grandaujayne who is his healthcare proxy,reports she was advised to present to ed for evaluation.he denies,weight loss,heat intolerance,tremors or restlessness - History Source History Provided By: Patient, Family Member - Past Medical History Cardio/Vascular: Yes: CAD, HTN, Hyperlipdemia Pulmonary: Yes: COPD (former smoker stopped in the past year) Renal/: Yes: Cancer (Prostate), UTI (chronic recurrent). No: Renal Failure Musculoskeletal: Yes: Osteoarthritis Endocrine: Yes: Diabetes Mellitus - Past Surgical History Past Surgical History: Yes: TURP - Alcohol/Substance Use Hx Alcohol Use: No - Smoking History Smoking history: Former smoker Have you smoked in the past 12 months: Yes Aproximately how many cigarettes per day: 2 If you are a former smoker, when did you quit?: quit once in 2012 then again in 2018 - Social History ADL: Independent History of Recent Travel: No Home Medications - Allergies Allergies/Adverse Reactions: Allergies Allergy/AdvReac Type Severity Reaction Status Date / Time No Known Drug Allergies Allergy Verified 10/30/17 13:53 - Home Medications Home Medications: Ambulatory Orders Aspirin [ASA -] 81 mg PO ASDIR 11/21/11 Glucosa Zaidi 2Kcl/Chondroitin Zaidi [Glucosamine & Chondroitin Cap] 1 each PO DAILY # 0 capsule 11/24/11 Selenium 200 mcg PO DAILY #0 tablet 11/24/11 Ubidecarenone [Co Q-10] 400 mg PO DAILY #0 capsule 11/24/11 Vitamin E 1,000 unit PO DAILY #0 capsule 11/24/11 Zinc [Zinc Chelated] 50 mg PO DAILY #0 capsule 11/24/11 Omeprazole [Prilosec (RX)] 20 mg PO DAILY #0 capsule 01/23/12 Metformin HCl [Riomet] 500 mg PO DAILY 01/19/16 Tamsulosin HCl [Flomax] 0.4 mg PO BID 01/19/16 Meclizine HCl [Antivert -] 25 mg PO Q6H PRN #60 tablet 01/22/16 metFORMIN HCL [Glucophage -] 500 mg PO DAILY@0700 tablet 01/22/16 Atorvastatin Ca [Lipitor] 40 mg PO HS 10/30/17 Lisinopril [Zestril] 2.5 mg PO DAILY 10/30/17 Metoprolol Succinate [Toprol XL -] 200 mg PO BID 10/30/17 Review of Systems - Review of Systems Constitutional: reports: Loss of Appetite, Weakness Eyes: reports: No Symptoms HENT: reports: Hearing Loss Neck: reports: No Symptoms Cardiovascular: reports: Shortness of Breath Respiratory: reports: Exercise Intolerance, SOB on Exertion Gastrointestinal: reports: No Symptoms Genitourinary: reports: No Symptoms Musculoskeletal: reports: No Symptoms Integumentary: reports: No Symptoms Neurological: reports: Weakness Physical Exam Vital Signs: Vital Signs Temperature 98.1 F 11/01/17 21:00 Pulse Rate 97 H 11/01/17 21:00 Respiratory Rate 18 11/01/17 21:00 Blood Pressure 114/89 11/01/17 21:00 O2 Sat by Pulse Oximetry (%) 94 L 11/01/17 20:54 Constitutional: Yes: Calm Eyes: Yes: EOM Intact HENT: Yes: Normocephalic, Nasal Congestion Neck: Yes: Trachea Midline Cardiovascular: Yes: Pulse Irregular Respiratory: Yes: CTA Bilaterally Gastrointestinal: Yes: Normal Bowel Sounds ...Rectal Exam: Yes: Deferred Renal/: Yes: WNL Breast(s): Yes: WNL Musculoskeletal: Yes: WNL Extremities: Yes: WNL Edema: No Neurological: Yes: Alert, Oriented, Weakness Labs: CBC, BMP 11/01/17 06:00 11/01/17 06:00 Problem List - Problems (1) Acute bronchitis Code(s): J20.9 - ACUTE BRONCHITIS, UNSPECIFIED Qualifiers: Bronchitis organism: unspecified organism Qualified Code(s): J20.9 - Acute bronchitis, unspecified (2) Atrial fibrillation with RVR Code(s): I48.91 - UNSPECIFIED ATRIAL FIBRILLATION (3) Hearing loss Code(s): H91.90 - UNSPECIFIED HEARING LOSS, UNSPECIFIED EAR Qualifiers: Hearing loss type: sensorineural Laterality: bilateral Qualified Code(s) : H90.3 - Sensorineural hearing loss, bilateral (4) Hyperthyroidism Code(s): E05.90 - THYROTOXICOSIS, UNSP WITHOUT THYROTOXIC CRISIS OR STORM (5) Vertigo Code(s): R42 - DIZZINESS AND GIDDINESS Assessment/Plan Current Active Problems Acute bronchitis (Acute) Atrial fibrillation with RVR (Acute) Chronic UTI (Acute) Diabetes (Acute) Hearing loss (Acute) Hyperthyroidism (Acute) Vertigo (Acute) Abnormal Lab Results 11/01/17 06:00 RBC 3.90 L Plt Count 453 H MPV 7.1 L Monocytes % 13.4 H Laboratory Results - last 24 hr 10/31/17 11/01/17 11/01/17 06:20 06:00 06:00 WBC 9.6 RBC 3.90 L Hgb 11.8 Hct 35.9 MCV 92.0 MCH 30.2 MCHC 32.8 RDW 14.1 Plt Count 453 H MPV 7.1 L Absolute Neuts (auto) 6.1 Neutrophils % 64.0 Lymphocytes % 19.6 Monocytes % 13.4 H Eosinophils % 2.4 D Basophils % 0.6 Nucleated RBC % 0 Sodium 140 Potassium 4.8 Chloride 104 Carbon Dioxide 27 Anion Gap 8 BUN 18 Creatinine 1.2 Creat Clearance w eGFR 57.41 POC Glucometer Random Glucose 96 Calcium 8.8 Phosphorus 3.4 Magnesium 2.0 Free T3 2.8 11/01/17 11/01/17 11/01/17 06:02 11:20 16:13 WBC RBC Hgb Hct MCV MCH MCHC RDW Plt Count MPV Absolute Neuts (auto) Neutrophils % Lymphocytes % Monocytes % Eosinophils % Basophils % Nucleated RBC % Sodium Potassium Chloride Carbon Dioxide Anion Gap BUN Creatinine Creat Clearance w eGFR POC Glucometer 107 136 111 Random Glucose Calcium Phosphorus Magnesium Free T3 11/01/17 21:25 WBC RBC Hgb Hct MCV MCH MCHC RDW Plt Count MPV Absolute Neuts (auto) Neutrophils % Lymphocytes % Monocytes % Eosinophils % Basophils % Nucleated RBC % Sodium Potassium Chloride Carbon Dioxide Anion Gap BUN Creatinine Creat Clearance w eGFR POC Glucometer 147 Random Glucose Calcium Phosphorus Magnesium Free T3 Laboratory Tests 10/30/17 10/31/17 15:20 06:20 TSH 0.08 L Free T4 1.32 H plan start methimazole 10mg bid check tpo,tsi
[2017-11-02] MEDS: METHIMAZOLE 10 MG TABLET (FP) PO SCH ×2 (00:23→11:01)
[2017-11-02] MEDS: SODIUM CHLORIDE 1,000 ML IV SCH ×2 (05:55→11:01)
[2017-11-02] MEDS: INSULIN SLIDING SCALE (NOVOLOG) 1 VIAL SQ SCH ×2 (06:00→11:18)
[2017-11-02 06:10] LABS: BASO % 0.5 % (0-2.0); EOS % 2.4 % (0-4.5); HEMATOCRIT 32.7 % (35.4-49); HEMOGLOBIN 10.9 GM/dL (11.7-16.9); LYMPH % 18.5 % (8-40); MCH 30.7 pg (25.7-33.7); MCHC 33.2 g/dl (32.0-35.9); MEAN CELL VOLUME 92.3 fl (80-96); MONO % 11.3 % (3.8-10.2); NEUT % 67.3 % (42.8-82.8); PLATELET COUNT 436 K/MM3 (134-434); RBC 3.54 M/mm3 (4.00-5.60); RDW 13.6 % (11.9-15.9); WHITE BLOOD COUNT 9.9 K/mm3 (4.0-10.0)
[2017-11-02 08:10] LABS: ANION GAP 12 MMOL/L (8-16); BLOOD UREA NITROGEN 21 mg/dL (7-18); CHLORIDE 106 mmol/L (98-107); CO2 22 mmol/L (21-32); CREATININE 1.1 mg/dL (0.55-1.3); GLUCOSE,RANDOM 109 mg/dL (74-106); MAGNESIUM 1.6 mg/dL (1.8-2.4); PHOSPHOROUS 3.4 mg/dL (2.5-4.9); POTASSIUM 4.4 mmol/L (3.5-5.1); SODIUM 140 mmol/L (136-145)
[2017-11-02 08:52] LABS: CALCIUM 6.2 mg/dL (8.5-10.1)
[2017-11-02 08:54] VITALS: BP 113/68; PULSE 92; TEMP 98.8
--- NOTE | 2017-11-02 09:08 | PN ---
Progress Note (short form) - Note Progress Note: Neurology HISTORY OF PRESENT ILLNESS: 87M w/ pmhx of DM, GERD, HLD, prostate cx, esophageal cx, HTN sent for reported fever reportedly to 100.3. Reportedly was recently seen by his PCP, Dr. Srivastava, this past Monday for R ear congestion and cough with productive sputum and was given azithromycin and prednisone. Of note, pt did not complete medication regimen but symptoms progressed and since fever had increased from 99.7, patient was instructed to go to hospital per granddaughter who was at bedside at initial visit. Had been seen by me in the office for gait and was being given Meclezine with good response but dizziness recurred. Completed CT head which did not showed no acute changes, discussed with granddaugter at initial visit. Ordered MRI brain, completed and reviewed, discussed with patient, no structural abnormalities. Patient was reassured by this. Is getting Abx for possible underlying infection. ENT eval noted and reported chronic hearing loss , recommended use of hearing aids. Possible Eustachian tube dysfunction, outpatient follow up recommended. Active Medications Generic Name Dose Route Start Last Admin Trade Name Freq PRN Reason Stop Dose Admin Apixaban 5 mg 11/01/17 22:00 11/01/17 21:26 Eliquis - PO 5 mg BID CORINA Administration Aspirin 81 mg 11/03/17 10:00 Asa - PO Q3D@1000 CORINA Atorvastatin Calcium 40 mg 10/31/17 22:00 11/01/17 21:26 Lipitor - PO 40 mg HS CORINA Administration Sodium Chloride 1,000 mls @ 75 mls/hr 10/31/17 02:30 11/02/17 05:55 Normal Saline - IV Not Given ASDIR CORINA Ceftriaxone Sodium 1 gm/ 50 mls @ 100 mls/hr 10/31/17 11:15 11/01/17 10:10 Dextrose IVPB 100 mls/hr DAILY CORINA Administration Protocol Insulin Aspart 1 vial 10/31/17 07:00 11/02/17 06:00 Novolog Vial Sliding Scale - SQ Not Given ACHS CORINA Protocol Lactobacillus Acidophilus 1 tab 10/31/17 11:15 11/01/17 09:47 Bacid - PO 1 tab DAILY CORINA Administration Lisinopril 2.5 mg 10/31/17 10:00 11/01/17 09:47 Prinivil PO 2.5 mg DAILY CORINA Administration Methimazole 10 mg 11/02/17 00:15 11/02/17 00:23 Tapazole - PO 10 mg BID CORINA Administration Metoprolol Succinate 200 mg 10/31/17 10:00 11/01/17 21:26 Toprol Xl - PO 200 mg BID CORINA Administration Pantoprazole Sodium 20 mg 10/31/17 10:00 11/01/17 09:47 Protonix - PO 20 mg DAILY CORINA Administration Tamsulosin HCl 0.4 mg 10/31/17 10:00 11/01/17 21:26 Flomax - PO 0.4 mg BID CORINA Administration Vitamin E 800 unit 10/31/17 10:00 11/01/17 09:48 Vitamin E - PO 800 unit DAILY CORINA Administration Zinc Sulfate 220 mg 10/31/17 10:00 11/01/17 09:47 Orazinc - PO 220 mg DAILY CORINA Administration PHYSICAL EXAMINATION Vital Signs Temperature 98.8 F 11/02/17 08:52 Pulse Rate 92 H 11/02/17 08:52 Respiratory Rate 20 11/02/17 08:52 Blood Pressure 113/68 11/02/17 08:52 O2 Sat by Pulse Oximetry (%) 94 L 11/01/17 20:54 GENERAL: AAOx3. NAD. Well-appearing. HEENT: AT/NC. EOMI. Dry mucus membranes. NECK: Normal range of motion, supple without lymphadenopathy, JVD, or masses. LUNGS: CTA B/L. No wheezes, rhonchi, rales noted. No accessory muscle use. HEART: Regular rate and rhythm, normal S1 and S2 without murmur, rub or gallop. ABDOMEN: Soft NT/ND. Normoactive BS in all 4Q's. Umbilical hernia. MUSCULOSKELETAL: Normal range of motion at all joints. No bony deformities or tenderness. No CVA tenderness. UPPER EXTREMITIES: 2+ pulses, warm, well-perfused. No cyanosis. No clubbing. No peripheral edema. 5/5 muscle strength b/l. LOWER EXTREMITIES: 2+ pulses, warm, well-perfused. No calf tenderness. No peripheral edema. 5/5 muscle strength b/l. NEUROLOGICAL: No facial droop, b/l hearing loss, facial sensation intact, strenght intact, finger to nose normal, gait deferred PSYCHIATRIC: Cooperative. Good eye contact. Appropriate mood and affect. SKIN: Warm, dry, normal turgor, no rashes or lesions noted, normal capillary refill. CBCD WBC 9.9 K/mm3 (4.0-10.0) 11/02/17 05:30 RBC 3.54 M/mm3 (4.00-5.60) L 11/02/17 05:30 Hgb 10.9 GM/dL (11.7-16.9) L 11/02/17 05:30 Hct 32.7 % (35.4-49) L 11/02/17 05:30 MCV 92.3 fl (80-96) 11/02/17 05:30 MCHC 33.2 g/dl (32.0-35.9) 11/02/17 05:30 RDW 13.6 % (11.9-15.9) 11/02/17 05:30 Plt Count 436 K/MM3 (134-434) H 11/02/17 05:30 MPV 7.0 fl (7.5-11.1) L 11/02/17 05:30 CMP Sodium 140 mmol/L (136-145) 11/02/17 05:30 Potassium 4.4 mmol/L (3.5-5.1) 11/02/17 05:30 Chloride 106 mmol/L (98-107) 11/02/17 05:30 Carbon Dioxide 22 mmol/L (21-32) 11/02/17 05:30 Anion Gap 12 MMOL/L (8-16) 11/02/17 05:30 BUN 21 mg/dL (7-18) H 11/02/17 05:30 Creatinine 1.1 mg/dL (0.55-1.3) 11/02/17 05:30 Creat Clearance w eGFR > 60 (>60) 11/02/17 05:30 Random Glucose 109 mg/dL (74-106) H 11/02/17 05:30 Calcium 6.2 mg/dL (8.5-10.1) L* 11/02/17 05:30 Total Bilirubin 0.2 mg/dL (0.2-1) 10/31/17 06:20 AST 11 U/L (15-37) L 10/31/17 06:20 ALT 18 U/L (13-61) 10/31/17 06:20 Alkaline Phosphatase 57 U/L (45-117) 10/31/17 06:20 Total Protein 5.8 g/dl (6.4-8.2) L 10/31/17 06:20 Albumin 2.6 g/dl (3.4-5.0) L 10/31/17 06:20 CARDIAC ENZYMES Creatine Kinase Cancelled 10/30/17 15:25 Troponin I Cancelled 10/30/17 15:25 ASSESSMENT/PLAN: 87M w/ pmhx of DM, GERD, HLD, prostate cx, esophageal cx, HTN sent for reported fever reportedly to 100.3. Reportedly was recently seen by his PCP, Dr. Srivastava, this past Monday for R ear congestion and cough with productive sputum and was given azithromycin and prednisone. Of note, pt did not complete medication regimen but symptoms progressed and since fever had increased from 99.7, patient was instructed to go to hospital per granddaughter who was at bedside. Has been seen by me in the office for gait and was being given Meclezine with good response but dizziness recurred. Completed CT head which did not show acute changes, MRI brain also without structural abnormalities. Is getting Abx, Ceftriazone, for possible underlying infection. ENT note reviewed, hearing aids and outpatient follow up. Continue mgmt for infection, afib. Monitor blood pressure, maintain normotensive range. Adequate hydration recommend, avoid sudden head movement, physical therapy as tolerated.
[2017-11-02] MEDS ORDERED: cefTRIAXone SODIUM 1 GM VIAL ONE (09:49)
[2017-11-02] MEDS ORDERED: DEXTROSE 5%-WATER - 50 ML IVPB ONE (09:49)
[2017-11-02] MEDS ORDERED: PT OWN MED DRAWER 7, Y5N ONE (09:49)
[2017-11-02] MEDS: CEFTRIAXONE 1 GM in DEXTROSE 5%-WATER - 50 ML IVPB SCH (09:51)
[2017-11-02] MEDS: LACTOBACILLUS ACIDOPHILUS 1 TABLET PO SCH (09:53)
[2017-11-02] MEDS: LISINOPRIL 5 MG TABLET (FP) PO SCH (09:53)
[2017-11-02] MEDS: PANTOPRAZOLE 20 MG TABLET (FP) PO SCH (09:54)
[2017-11-02] MEDS: APIXABAN 5 MG TABLET PO SCH (09:54)
[2017-11-02] MEDS: ZINC SULFATE 220 MG CAPSULE (FP) PO SCH (09:54)
[2017-11-02] MEDS: VITAMIN E 400 INTERNATIONAL-UNITS CAPSULE (FP) PO SCH (09:54)
[2017-11-02] MEDS: TAMSULOSIN HCL 0.4 MG CAP.ER.24H (FP) PO SCH (09:54)
[2017-11-02] MEDS ORDERED: MAGNESIUM SULF 50% (8.12 MEQ/2 ML-1 GM VIAL) IVPB ONE (10:00)
--- NOTE | 2017-11-02 10:39 | PN ---
Progress Note (short form) - Note Progress Note: s: no cp sob palps dizzy o: Current Medications Generic Name Dose Route Start Last Admin Trade Name Jeannette PRN Reason Stop Dose Admin Apixaban 5 mg 11/01/17 22:00 11/02/17 09:54 Eliquis - PO 5 mg BID CORINA Administration Aspirin 81 mg 11/03/17 10:00 Asa - PO Q3D@1000 CORINA Atorvastatin Calcium 40 mg 10/31/17 22:00 11/01/17 21:26 Lipitor - PO 40 mg HS CORINA Administration Sodium Chloride 1,000 mls @ 75 mls/hr 10/31/17 02:30 11/02/17 05:55 Normal Saline - IV Not Given ASDIR CORINA Ceftriaxone Sodium 1 gm/ 50 mls @ 100 mls/hr 10/31/17 11:15 11/02/17 09:51 Dextrose IVPB 100 mls/hr DAILY CORINA Administration Protocol Insulin Aspart 1 vial 10/31/17 07:00 11/02/17 06:00 Novolog Vial Sliding Scale - SQ Not Given ACHS CORINA Protocol Lactobacillus Acidophilus 1 tab 10/31/17 11:15 11/02/17 09:53 Bacid - PO 1 tab DAILY CORINA Administration Lisinopril 2.5 mg 10/31/17 10:00 11/02/17 09:53 Prinivil PO 2.5 mg DAILY CORINA Administration Methimazole 10 mg 11/02/17 00:15 11/02/17 00:23 Tapazole - PO 10 mg BID CORINA Administration Metoprolol Succinate 200 mg 10/31/17 10:00 11/02/17 09:53 Toprol Xl - PO 200 mg BID CORINA Administration Pantoprazole Sodium 20 mg 10/31/17 10:00 11/02/17 09:54 Protonix - PO 20 mg DAILY CORINA Administration Tamsulosin HCl 0.4 mg 10/31/17 10:00 11/02/17 09:54 Flomax - PO 0.4 mg BID CORINA Administration Vitamin E 800 unit 10/31/17 10:00 11/02/17 09:54 Vitamin E - PO 800 unit DAILY CORINA Administration Zinc Sulfate 220 mg 10/31/17 10:00 11/02/17 09:54 Orazinc - PO 220 mg DAILY CORINA Administration pe: Vital Signs Period Temp Pulse Resp BP Sys/Walls Pulse Ox Last 24 Hr 97.8 F-98.8 F 78-97 16-20 101-119/49-89 94 nad no jvd irreg s1s2 no mrg cta bl nl eff aaox3 no le e/c/c abd nt nd pos bs no jaundice diaphoresis Current Medications Generic Name Dose Route Start Last Admin Trade Name Jeannette PRN Reason Stop Dose Admin Apixaban 5 mg 11/01/17 22:00 11/02/17 09:54 Eliquis - PO 5 mg BID CORINA Administration Aspirin 81 mg 11/03/17 10:00 Asa - PO Q3D@1000 CORINA Atorvastatin Calcium 40 mg 10/31/17 22:00 11/01/17 21:26 Lipitor - PO 40 mg HS CORINA Administration Sodium Chloride 1,000 mls @ 75 mls/hr 10/31/17 02:30 11/02/17 05:55 Normal Saline - IV Not Given ASDIR CORINA Ceftriaxone Sodium 1 gm/ 50 mls @ 100 mls/hr 10/31/17 11:15 11/02/17 09:51 Dextrose IVPB 100 mls/hr DAILY CORINA Administration Protocol Insulin Aspart 1 vial 10/31/17 07:00 11/02/17 06:00 Novolog Vial Sliding Scale - SQ Not Given ACHS CORINA Protocol Lactobacillus Acidophilus 1 tab 10/31/17 11:15 11/02/17 09:53 Bacid - PO 1 tab DAILY CORINA Administration Lisinopril 2.5 mg 10/31/17 10:00 11/02/17 09:53 Prinivil PO 2.5 mg DAILY CORINA Administration Methimazole 10 mg 11/02/17 00:15 11/02/17 00:23 Tapazole - PO 10 mg BID CORINA Administration Metoprolol Succinate 200 mg 10/31/17 10:00 11/02/17 09:53 Toprol Xl - PO 200 mg BID CORINA Administration Pantoprazole Sodium 20 mg 10/31/17 10:00 11/02/17 09:54 Protonix - PO 20 mg DAILY CORINA Administration Tamsulosin HCl 0.4 mg 10/31/17 10:00 11/02/17 09:54 Flomax - PO 0.4 mg BID CORINA Administration Vitamin E 800 unit 10/31/17 10:00 11/02/17 09:54 Vitamin E - PO 800 unit DAILY CORINA Administration Zinc Sulfate 220 mg 10/31/17 10:00 11/02/17 09:54 Orazinc - PO 220 mg DAILY CORINA Administration CBC, BMP 11/02/17 05:30 11/02/17 05:30 cxr: no chf ecg: afib, old lbbb tele: afib, rate ok carotids 11/2016: no sig stenosis mibi 07/2016: apical infarct, no ischemia, lvef 40% echo 10/2017: nl lv size, lvef 45, global hk, nl rv, mild lae, mild tr, mild pr, mild phtn, mild ao root dil echo 07/2016: lvef 40% a/p: 87 m hx vertigo, dm, copd, htn, hld, lbbb, cad s/p mi/pci 2004, syst chf, here with vertigo. vertigo: -improved, ent, neuro following afib: -newly found here -cont bb, rate ok on tele -chadsvasc warrants ac, continue eliquis at 5 mg bid htn: -controlled on current meds hld: -cont statin cad: -stable, no angina -no ischemia on recent mibi -cont statin, asa, bb, shama chronic systolic chf: -stable, euvolemic -cont bb, shama -echo here similar to priors cardiac mares stable for dc
--- NOTE | 2017-11-02 12:07 | DS ---
Physical Examination Vital Signs: Vital Signs Temperature 37.1 C 11/02/17 08:52 Pulse Rate 92 H 11/02/17 08:52 Respiratory Rate 20 11/02/17 08:52 Blood Pressure 113/68 11/02/17 08:52 O2 Sat by Pulse Oximetry (%) 94 L 11/01/17 20:54 Constitutional: Yes: Well Nourished, No Distress, Calm Cardiovascular: Yes: Pulse Irregular. No: Tachycardia, Gallop, Murmur, Rub Respiratory: Yes: Regular, CTA Bilaterally. No: Rales, Rhonchi, Wheezes Gastrointestinal: Yes: Normal Bowel Sounds, Soft. No: Distention, Tenderness Extremities: Yes: WNL Edema: No Labs: CBC, BMP 11/02/17 05:30 11/02/17 05:30 Discharge Summary Reason For Visit: URINARY TRACT INFECTION,DIABETES MELLITUS, Current Active Problems Acute bronchitis (Acute) Atrial fibrillation with RVR (Acute) Chronic UTI (Acute) Diabetes (Acute) Hearing loss (Acute) Hyperthyroidism (Acute) Vertigo (Acute) Hospital Course: (1) Atrial fibrillation with RVR Code(s): I48.91 - UNSPECIFIED ATRIAL FIBRILLATION (2) Vertigo Code(s): R42 - DIZZINESS AND GIDDINESS (3) Acute bronchitis Code(s): J20.9 - ACUTE BRONCHITIS, UNSPECIFIED Qualifiers: Bronchitis organism: unspecified organism Qualified Code(s): J20.9 - Acute bronchitis, unspecified (4) Hyperlipidemia Code(s): E78.5 - HYPERLIPIDEMIA, UNSPECIFIED (5) Hypertension Code(s): I10 - ESSENTIAL (PRIMARY) HYPERTENSION (6) Prostate cancer Code(s): C61 - MALIGNANT NEOPLASM OF PROSTATE (7) Chronic UTI Code(s): N39.0 - URINARY TRACT INFECTION, SITE NOT SPECIFIED (8) Hyperthyroidism Code(s): E05.90 - THYROTOXICOSIS, UNSP WITHOUT THYROTOXIC CRISIS OR STORM (9) Diabetes Code(s): E11.9 - TYPE 2 DIABETES MELLITUS WITHOUT COMPLICATIONS Qualifiers: Diabetes mellitus type: type 2 Diabetes mellitus intermediate designer insulin use: without senior living use Diabetes mellitus complication status: with unspecified complications Qualified Code(s): E11.8 - Type 2 diabetes mellitus with unspecified complications Mr Torres is a very pleasant 87 year old male who comes in with vertigo and was found to have atrial fibrillation with rvr. He was admitted to the hospital on telemetry. He was seen by cardiology and continued on his metoprolol. Eliquis was added secondary to his CHADS2 score. His TFT were checked and were positive for hyperthyroidism. Endocrinology saw the patient and he was started on methimazole. He will have further follow up as an outpatient. Considering vertigo and unclear if had paroxysmal afib prior to presentation, CT scan was obtained to evaluate for possible cerebellar stroke. This was negative and neurology was consulted. MRI was obtained and also negative for acute CVA. ENT saw the patient for vertigo and hearing loss, he will present for further evaluation as an outpatient. He has a history of chronic UTI and was growing e coli. He was placed on empiric rocephin considering he had fevers and pulmonary symptoms as an outpatient and this can be stopped. He is currently safe for discharge home. 32 minutes spent in preparation of this discharge Condition: Good - Instructions Diet, Activity, Other Instructions: resume previous diet and activity Referrals: Taye Srivastava MD [Primary Care Provider] - Marino Underwood MD [Staff Physician] - Ward Castellanos MD [Staff Physician] - Luke Baker MD [Non Staff, Medical] - Disposition: HOME - Home Medications Comprehensive Discharge Medication List: Ambulatory Orders Aspirin [ASA -] 81 mg PO ASDIR 11/21/11 Glucosa Zaidi 2Kcl/Chondroitin Zaidi [Glucosamine & Chondroitin Cap] 1 each PO DAILY # 0 capsule 11/24/11 Selenium 200 mcg PO DAILY #0 tablet 11/24/11 Ubidecarenone [Co Q-10] 400 mg PO DAILY #0 capsule 11/24/11 Vitamin E 1,000 unit PO DAILY #0 capsule 11/24/11 Zinc [Zinc Chelated] 50 mg PO DAILY #0 capsule 11/24/11 Omeprazole [Prilosec (RX)] 20 mg PO DAILY #0 capsule 01/23/12 Metformin HCl [Riomet] 500 mg PO DAILY 01/19/16 Tamsulosin HCl [Flomax] 0.4 mg PO BID 01/19/16 Meclizine HCl [Antivert -] 25 mg PO Q6H PRN #60 tablet 01/22/16 metFORMIN HCL [Glucophage -] 500 mg PO DAILY@0700 tablet 01/22/16 Atorvastatin Ca [Lipitor] 40 mg PO HS 09/24/18 Lisinopril [Zestril] 2.5 mg PO DAILY 10/30/17 Metoprolol Succinate [Toprol XL -] 200 mg PO BID 10/30/17 Apixaban [Eliquis -] 5 mg PO BID #60 tablet 11/02/17 Methimazole [Tapazole -] 10 mg PO BID #60 tablet 11/02/17
[2017-11-02 16:21] LABS: ALBUMIN 2.4 g/dl (3.4-5.0); ALK PHOS 56 U/L (45-117); BILIRUBIN,DIRECT < 0.2 mg/dL (0.0-0.2); BILIRUBIN,TOTAL 0.2 mg/dL (0.2-1); SGOT/AST 13 U/L (15-37); SGPT/ALT 20 U/L (13-61); TOT PROT 5.5 g/dl (6.4-8.2)
[2017-11-03] MEDS ORDERED: ASPIRIN 81 MG CHEWABLE TABLETS PO SCH (10:00)
== END 2017-11-02 14:16 | disposition home or self-care (01) | DRG 202 ==
LOC: JER 13:45 → JERBED 19:26 → J4S 10-31 14:45
PROVIDERS: ADMIT Internal Medicine; ATTEND Internal Medicine
DX: J20.9 Acute bronchitis, unspecified (principal); N39.0 Urinary tract infection, site not specified; I50.22 Chronic systolic (congestive) heart failure; J44.0 Chronic obstructive pulmonary disease with (acute) lower respiratory infection; I48.91 Unspecified atrial fibrillation; I25.2 Old myocardial infarction; E11.9 Type 2 diabetes mellitus without complications; E78.00 Pure hypercholesterolemia, unspecified; I10 Essential (primary) hypertension; I44.7 Left bundle-branch block, unspecified; I25.10 Atherosclerotic heart disease of native coronary artery without angina pectoris; R42 Dizziness and giddiness; K21.9 Gastro-esophageal reflux disease without esophagitis; R26.81 Unsteadiness on feet; F32.9 Major depressive disorder, single episode, unspecified; E05.90 Thyrotoxicosis, unspecified without thyrotoxic crisis or storm; I11.0 Hypertensive heart disease with heart failure; H90.3 Sensorineural hearing loss, bilateral; Z85.01 Personal history of malignant neoplasm of esophagus; Z85.46 Personal history of malignant neoplasm of prostate; Z87.891 Personal history of nicotine dependence
CPT/HCPCS: 36415; 70450-TC; 70551-TC; 71045-TC-FY; 80048; 80053; 80076; 81003; 81015; 82550; 82962; 83735; 84100; 84436; 84439; 84443; 84481; 84484; 85025; 87040; 87086; 87186; 93005; 93010; 93306-TC; 97116-GP; 97161-GP; 99285-25; J7030

== ENCOUNTER 2018-01-19 11:45 | Day surgery (SDC) | payer OTHER, BC ==
[2018-01-17 12:36] VITALS: BMI 25.9
[2018-01-19 12:30] VITALS: BP 129/56; PULSE 62; TEMP 97.4
== END 2018-01-19 13:00 | disposition home or self-care (01) ==
LOC: JASU-ENDO 11:45
PROVIDERS: ATTEND Internal Medicine Gastroenterology
PROC: 3E013GC Introduction of Other Therapeutic Substance into Subcutaneous Tissue, Percutaneous Approach (ICD-10-PCS; principal; 2018-01-19)
DX: Z53.8 Procedure and treatment not carried out for other reasons (principal)
CPT/HCPCS: 82962

== ENCOUNTER 2018-02-16 12:06 | Day surgery (SDC) | payer OTHER, BC ==
[2018-02-15 13:40] VITALS: BMI 25.9
[2018-02-16 14:47] VITALS: TEMP 97
[2018-02-16 15:34] VITALS: BP 114/50; PULSE 58
--- NOTE | 2018-02-20 17:09 | PATH ---
Surgical Pathology Report Patient Name: [facility]. Rec. #: [id number] /Age/Gender: 1930 (Age: 87) / M Account: [id number] Location: U-ENDOSCOPY Taken: 02/16/2018 Received: 02/19/2018 Reported: 02/20/2018 Physicians: Franc Zazueta M.D. Specimen(s) Received A: BX ANTRUM B: BX DISTAL ESOPHAGUS AT 38CM C: BX DISTAL ESOPHAGUS AT 36CM Clinical History Esophageal carcinoma surveillance Postoperative diagnosis: GERD Final Diagnosis A. ANTRUM, BIOPSY: GASTRIC MUCOSA WITH REACTIVE GASTRITIS. IMMUNOSTAIN FOR H. PYLORI IS NEGATIVE. NEGATIVE FOR INTESTINAL METAPLASIA. B. DISTAL ESOPHAGUS AT 38 CM, BIOPSY: GASTROESOPHAGEAL JUNCTIONAL MUCOSA WITH CHANGES CONSISTENT WITH MILD REFLUX ESOPHAGITIS. NEGATIVE FOR INTESTINAL METAPLASIA. C. DISTAL ESOPHAGUS AT 36 CM, BIOPSY: ESOPHAGEAL MUCOSA WITH NO SIGNIFICANT PATHOLOGIC CHANGE. NO HISTOLOGIC EVIDENCE OF EOSINOPHILIC ESOPHAGITIS. Electronically Signed Kim Johnson M.D. Gross Description A. Received in formalin, labeled "biopsy antrum" are 2 aponte, irregular portions of soft tissue measuring 0.3 and 0.4 cm. in greatest dimension. The specimens are submitted in toto in one cassette. B. Received in formalin, labeled "biopsy distal esophagus at 38 cm" are 2 aponte, irregular portions of soft tissue averaging 0.3 cm. in greatest dimension. The specimens are submitted in toto in one cassette. C. Received in formalin, labeled "biopsy distal esophagus at 36 cm" are 3 aponte, irregular portions of soft tissue ranging from 0.2-0.4 cm. in greatest dimension. The specimens are submitted in toto in one cassette. 02/19/2018 saudi02/19/2018
== END 2018-02-16 15:57 | disposition home or self-care (01) ==
LOC: JASU-ENDO 12:06
PROVIDERS: ATTEND Internal Medicine Gastroenterology
PROC: 0DB68ZX Excision of Stomach, Via Natural or Artificial Opening Endoscopic, Diagnostic (ICD-10-PCS; 2018-02-16)
PROC: 0DB28ZX Excision of Middle Esophagus, Via Natural or Artificial Opening Endoscopic, Diagnostic (ICD-10-PCS; 2018-02-16)
PROC: 0DB38ZX Excision of Lower Esophagus, Via Natural or Artificial Opening Endoscopic, Diagnostic (ICD-10-PCS; principal; 2018-02-16 12:30)
DX: Z85.01 Personal history of malignant neoplasm of esophagus (principal); K21.9 Gastro-esophageal reflux disease without esophagitis; K44.9 Diaphragmatic hernia without obstruction or gangrene; K29.60 Other gastritis without bleeding
CPT/HCPCS: 88305-TC; 88342-TC

== ENCOUNTER 2018-04-26 15:21 | Inpatient (IN) | payer OTHER, BC ==
[2018-04-26] MEDS ORDERED: SODIUM CHLORIDE 0.9% 1000 ML INFUS.BAG IV ONE (15:26)
[2018-04-26] MEDS ORDERED: ALBUTEROL SO4 2.5/IPRATROPIUM 0.5 INH SOL 3 ML VIAL.NEB. NEB ONE (15:38)
--- NOTE | 2018-04-26 16:01 | PDOC ---
History of Present Illness - General Chief Complaint: Syncope/Near Syncope Stated Complaint: SLOW HEART RATE Time Seen by Provider: 04/26/18 15:25 History Source: Patient Exam Limitations: No Limitations - History of Present Illness Initial Comments: 04/26/18 16:01 87 yo M with a hx of vertigo, COPD, HTN, HLD, LBBB, CAD s/p PCI 2004, systolic CHF, paroxysmal afib, hyperthyroidism, diverticulosis, GERD with high grade dysplasia, prostate cancer, and DM presents to the emergency department s/p witnessed syncopal episode with tonic clonic movements prior to onset. Per the patient's granddaughter, the patient was watching a surveillance camera that started to malfunction and was spinning which induced dizziness for the patient followed by nausea and vomiting. The patient LOC while sitting in his chair and had tonic clonic movement for less than a minute. Per EMS, the patient was bradycardia in the 30s and received 3x 1mg atropine. The patient felt dizzy following the episode and has no hx of seizures. The patient symptomatic complaints currently include non productive cough and generalized weakness. Per the daughter at bedside, she states the patient is not 100% himself. Denies the following: fever, chills, nausea, vomiting, chest pain, FND, visual changes, SOB , chest pain, abdominal pain, dysuria, hematuria, diarrhea, hematochezia, and leg pain/swelling. Allergies: NKDA Past History - Past Medical History Allergies/Adverse Reactions: Allergies Allergy/AdvReac Type Severity Reaction Status Date / Time No Known Drug Allergies Allergy Verified 10/30/17 13:53 Home Medications: Ambulatory Orders Selenium 200 mcg PO DAILY #0 tablet 11/24/11 Zinc [Zinc Chelated] 50 mg PO DAILY #0 capsule 11/24/11 Tamsulosin HCl [Flomax] 0.4 mg PO BID 01/19/16 Atorvastatin Ca [Lipitor] 40 mg PO Q2D 10/30/17 Lisinopril [Zestril] 5 mg PO DAILY 10/30/17 Metoprolol Succinate [Toprol XL -] 200 mg PO DAILY 10/30/17 Ascorbic Acid [Vitamin C] 500 mg PO DAILY 01/17/18 Biotin 1 mg PO DAILY 01/17/18 Metformin HCl [Metformin HCl ER] 500 mg PO DAILY 01/17/18 Methimazole [Tapazole -] 10 mg PO DAILY 01/17/18 Omeprazole [Prilosec (RX)] 20 mg PO BID 01/17/18 Apixaban [Eliquis -] 5 mg PO BID 04/26/18 Apixaban [Eliquis] 5 mg PO BID 30 Days #60 tablet 04/27/18 Levetiracetam [Keppra] 500 mg PO BID 14 Days #14 tablet 04/27/18 Anemia: Yes Asthma: No Cancer: Yes (PROSTATE) Cardiac Disorders: Yes (MIX2, STENT PLACEMENT, PROXYSMAL ATRIAL FIBRILLATION) CVA: No COPD: Yes (EMPHYSEMA) CHF: No Dementia: No Diabetes: Yes GI Disorders: Yes (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) Disorders: Yes (CHRONIC UTI X 6 YEARS,prostate ca) HTN: Yes Hypercholesterolemia: Yes Liver Disease: No Seizures: No Thyroid Disease: Yes (HYPERTHYROIDISM) - Surgical History Abdominal Surgery: Yes (BILATERAL INGUINAL HERNIA REPAIR, SPIGELIAN HERNIA REPAIR) Appendectomy: No Cardiac Surgery: Yes (STENTS X2) Cholecystectomy: No Lung Surgery: No Neurologic Surgery: No Orthopedic Surgery: Yes (LEFT ANKLE FRACTURE SURGERY) - Immunization History Immunization Up to Date: Yes - Suicide/Smoking/Psychosocial Hx Smoking Status: Yes Smoking History: Current every day smoker Have you smoked in the past 12 months: No Number of Cigarettes Smoked Daily: 2 If you are a former smoker, when did you quit?: 2013 Information on smoking cessation initiated: No 'Breaking Loose' booklet given: 10/31/17 Hx Alcohol Use: No Drug/Substance Use Hx: No Substance Use Type: None Hx Substance Use Treatment: No Review of Systems - Review of Systems Able to Perform ROS?: Yes Is the patient limited Syriac proficient: No Constitutional: Yes: Weakness. No: Chills, Diaphoresis, Fever HEENTM: No: Eye Pain, Blurred Vision, Recent change in vision, Double Vision, Ear Pain, Nose Pain, Throat Pain, Mouth Pain Respiratory: Yes: Cough. No: Shortness of Breath, Productive cough, Hemoptysis Cardiac (ROS): Yes: Syncope. No: Chest Pain, Lightheadedness, Palpitations, Chest Tightness ABD/GI: No: Constipated, Diarrhea, Nausea, Poor Appetite, Poor Fluid Intake, Rectal Bleeding, Vomiting, Indigestion, Tarry Stools : No: Burning, Dysuria, Hematuria, Incontinence Musculoskeletal: No: Back Pain, Gout, Joint Pain, Neck Pain Integumentary: No: Erythema, Rash, Sweating Neurological: Yes: Dizziness. No: Headache, Numbness, Tingling, Tremors Psychiatric: No: Stressors, Change in Appetite Endocrine: No: Unexplained Weight Gain Hematologic/Lymphatic: No: Anemia *Physical Exam - Vital Signs Last Vital Signs Temp Pulse Resp BP Pulse Ox 97.1 F L 55 L 22 H 155/74 98 04/26/18 15:39 04/26/18 15:39 04/26/18 15:39 04/26/18 15:39 04/26/18 15:50 - Physical Exam General Appearance: Yes: Nourished, Appropriately Dressed, Thin. No: Apparent Distress, Intoxicated HEENT: positive: EOMI, CASANDRA, Normal ENT Inspection, Normal Voice, Symmetrical, TMs Normal, Pharynx Normal, Hearing Grossly Normal. negative: Pale Conjunctivae , Muffled/Hoarse voice, Pharyngeal Erythema, Tonsillar Exudate, Tonsillar Erythema, Nasal Congestion, Rhinorrhea, TM Bulging, TM Dull, TM Erythema, Excessive drooling Neck: positive: Trachea midline, Supple. negative: Tender, Lymphadenopathy (R) , Lymphadenopathy (L), Tender lateral, Tender midline Respiratory/Chest: positive: Lungs Clear, Normal Breath Sounds, Other ( decreased breathsounds bilaterally at bases. ). negative: Chest Tender, Respiratory Distress, Accessory Muscle Use, Rhonchi, Stridor, Wheezing Cardiovascular: positive: Regular Rhythm, Regular Rate, S1, S2. negative: Systolic Murmur Gastrointestinal/Abdominal: positive: Normal Bowel Sounds, Flat, Soft. negative : Tender, Guarding, Rebound Lymphatic: negative: Adenopathy Musculoskeletal: positive: Normal Inspection. negative: CVA Tenderness, Vertebral Tenderness Extremity: positive: Normal Capillary Refill, Normal Inspection, Normal Range of Motion. negative: Tender, Swelling, Calf Tenderness Integumentary: positive: Normal Color, Dry, Warm. 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 ). negative: Fully Oriented (oriented to self and place. incorrect year (2017)), EOM Palsy, Facial Droop, Sensory Deficit, Depressed Affect Moderate Sedation - Procedure Monitoring Vital Signs: Procedure Monitoring Vital Signs Temperature 97.1 F L 04/26/18 15:39 Pulse Rate 55 L 04/26/18 15:39 Respiratory Rate 22 H 04/26/18 15:39 Blood Pressure 155/74 04/26/18 15:39 O2 Sat by Pulse Oximetry (%) 98 04/26/18 15:50 Heart Score/ECG Review - ECG Intrepretation Comment:: ventricular rate is 83 bpm, LBBB (old one seen previously ) NSR without afib. No ST elevations or depressions. QTC is 465 ms, QRS is 140ms, and OR is 170ms. ED Treatment Course - LABORATORY CBC & Chemistry Diagram: 04/27/18 05:30 04/27/18 05:30 - Medications Given in the ED: ED Medications Discontinued Medications Generic Name Dose Route Start Last Admin Trade Name Freq PRN Reason Stop Dose Admin Sodium Chloride 1,000 ml 04/26/18 15:26 04/26/18 15:35 Normal Saline - IV 04/26/18 15:27 1,000 ml ONCE ONE Administration Medical Decision Making - Medical Decision Making 87 yo M with a hx of vertigo, COPD, HTN, HLD, LBBB, CAD s/p PCI 2004, systolic CHF, paroxysmal afib, hyperthyroidism, diverticulosis, GERD with high grade dysplasia, prostate cancer, and DM presents to the emergency department s/p witnessed syncopal episode with tonic clonic movements prior to onset. Initial vitals: Initial Vital Signs Temp Pulse Resp BP Pulse Ox 97.1 F L 55 L 22 H 155/74 97 04/26/18 15:39 04/26/18 15:39 04/26/18 15:39 04/26/18 15:39 04/26/18 15:39 Work up: syncope: etiology infectious vs cardiogenic vs metabolic vs volume status vs neurological vs intracranial. the patient on presentation had an EKG with LBBB but the same as his previous with no ST elevations or depressions. POCUS ECHO shows mild LV contractility without pericardial effusion without RV dilation (D sign). Lungs POCUS shows b lines bilaterally, namely in the right mid and base and left apex, mid, and base. no pleural effusions noted. B lines consistent with pulmonary edema more likely. Laboratory Tests 04/26/18 04/26/1804/26/19 15:50 15:50 15:50 WBC 5.9 RBC 3.51 L Hgb 10.6 L Hct 31.5 L MCV 89.7 MCH 30.3 MCHC 33.8 RDW 18.6 H Plt Count 335 D MPV 7.5 Absolute Neuts (auto) 3.6 Neutrophils % 62.0 Lymphocytes % 20.7 Monocytes % 10.9 H Eosinophils % 5.5 H D Basophils % 0.9 Nucleated RBC % 0 Sodium Potassium Chloride Carbon Dioxide Anion Gap BUN Creatinine Creat Clearance w eGFR Random Glucose Lactic Acid 1.4 Calcium Total Bilirubin AST ALT Alkaline Phosphatase Creatine Kinase 78 Troponin I < 0.02 B-Natriuretic Peptide Total Protein Albumin 04/26/18 15:55 WBC RBC Hgb Hct MCV MCH MCHC RDW Plt Count MPV Absolute Neuts (auto) Neutrophils % Lymphocytes % Monocytes % Eosinophils % Basophils % Nucleated RBC % Sodium 138 Potassium 4.9 Chloride 106 Carbon Dioxide 27 Anion Gap 5 L BUN 15 Creatinine 1.3 Creat Clearance w eGFR 52.34 Random Glucose 101 Lactic Acid Calcium 9.2 Total Bilirubin 0.2 AST 19 ALT 19 Alkaline Phosphatase 60 Creatine Kinase Troponin I B-Natriuretic Peptide 352.9 Total Protein 6.4 Albumin 3.3 L Labs within normal limits. CXR was negative for acute pathologies. Patient has been normocardia throughout ED visit. Patient was given duoneb. zosyn was started due to questionable infectious source at the base of the right lungs. head CT negative for acute pathologies. Case was discussed with hospitalist service that accepted admission. Dispo: Admit to tele. *DC/Admit/Observation/Transfer Diagnosis at time of Disposition: Syncope Qualifiers: Syncope type: unspecified Qualified Code(s): R55 - Syncope and collapse - Discharge Dispostion Condition at time of disposition: Improved - Referrals - Patient Instructions - Post Discharge Activity
[2018-04-26 16:09] LABS: BASO % 0.9 % (0-2.0); EOS % 5.5 % (0-4.5); HEMATOCRIT 31.5 % (35.4-49); HEMOGLOBIN 10.6 GM/dL (11.7-16.9); LYMPH % 20.7 % (8-40); MCH 30.3 pg (25.7-33.7); MCHC 33.8 g/dl (32.0-35.9); MEAN CELL VOLUME 89.7 fl (80-96); MEAN PLT VOLUME 7.5 fl (7.5-11.1); MONO % 10.9 % (3.8-10.2); PLATELET COUNT 335 K/MM3 (134-434); RBC 3.51 M/mm3 (4.00-5.60); RDW 18.6 % (11.9-15.9); WHITE BLOOD COUNT 5.9 K/mm3 (4.0-10.0)
[2018-04-26 16:41] LABS: ALBUMIN 3.3 g/dl (3.4-5.0); ALK PHOS 60 U/L (45-117); ANION GAP 5 MMOL/L (8-16); BILIRUBIN,TOTAL 0.2 mg/dL (0.2-1); BLOOD UREA NITROGEN 15 mg/dL (7-18); CALCIUM 9.2 mg/dL (8.5-10.1); CHLORIDE 106 mmol/L (98-107); CO2 27 mmol/L (21-32); CREATININE 1.3 mg/dL (0.55-1.3); GLUCOSE,RANDOM 101 mg/dL (74-106); N-TERMINAL BNP 352.9 pg/ml (5-450); POTASSIUM 4.9 mmol/L (3.5-5.1); SGOT/AST 19 U/L (15-37); SGPT/ALT 19 U/L (13-61); SODIUM 138 mmol/L (136-145); TOT PROT 6.4 g/dl (6.4-8.2)
--- NOTE | 2018-04-26 16:41 | PDOC ---
Attending Attestation - HPI HPI: The patient is an 87 year old male, with a significant PMH of COPD, CAD, AR, ASHD (with stenting), paroxysmal Afib, NIDDM, HTN, hypercholesterolemia, hyperthyroid, diverticulosis, colonoscopic polypectomy, GERD with high grade dysplasia, Barretts esophagus and intramucosal adenocarcinoma resection, and prostate cancer, who presents to the emergency department today s/p possible faint/seizure episode prior to arrival. As per patients daughter. She notes they were looking at a camera when he suddenly became altered, and she is unsure if he fainted or seized. She reports that he was briefly unresponsive, and upon EMS arrival his heart rate was in the 30s (was given 3 doses of atropine). He reports dizziness immediately after the episode, and endorses a dry cough at this time. Otherwise, asymptomatic, and no witnessed syncope or seizure-like activity upon arrival. The patient denies chest pain, shortness of breath, and headache. Denies fever, chills, nausea, vomit, diarrhea and constipation. Denies dysuria, frequency, urgency and hematuria. Allergies: NKA Past surgical history: RIH, LIH, laparoscopic repair of left Spigelian hernia, left ORIF, deviated septum repair, tonsillectomy, TURP, colonoscopic polypectomy, and intramucosal adenocarcinoma resection Social history: No reported PCP: Dr. Gianni Srivastava 04/26/18 16:43 - Medical Decision Making EXAM#: TYPE/EXAM: RESULT: [id number] RAD/CHEST X-RAY PORTABLE* HISTORY PROVIDED: Cough. IMPRESSION: No acute disease. Reported By: Gwyn Gomez MD 04/26/18 16:40 Documentation prepared by BROCK Suero, acting as biomedical photographer for Patricia Chen MD. 04/26/18 16:44 <Karlee De Luna - Last Filed: 04/26/18 16:44> - ED Attending Attestation I have performed the following: I have examined & evaluated the patient, The case was reviewed & discussed with the resident, I agree w/resident's findings & plan, Exceptions are as noted - Physicial Exam PE: 04/26/18 16:30 awake,lungs with decreased air flow at bases. no wheeze. prolonged expiration. heart rrr no mrg abd soft nt nd. ext wwp no edema. thin. nuero alert oriented x 2 ( disoriented to year thought 2017) symmetric pulses bilaterally 2 + rad/ dp . - Medical Decision Making 04/26/18 16:30 87 yo male h/o afib htn, hld, copd, cad ( 2 stents) here with syncope/ seizure witnessed by daughter, found to be bradycardic by EMT given atropine x 3. now pt awake and alert, talking. has cry cough. no c/o sob or cp. no abd pain no back pain. no h/o seizure disorder. on initial evauation ekg with LBB ( old) heart rate 83. no st t wave changes. focused ED TTE mild reduced LV contractility, LA dilated. no pericardial effusion, no rv dilation . lungs scanned bilaterally , bilat B lines diffusely, no pleural effusio noted. impression: pulmonary edema. pt with syncope vs. siezure, differential pna, copd exacerbatio and cough causing vagal episode afib with slow rate. b huey toxicity although pt no longer bradycardic. pulm edema. bronchospasm electrolyte abnormality. pt cxr negative per radiology. . plan admit to telemetry. given neb for bradycardia and copd. 04/26/18 17:26 hear rate stable while here, given abx for questionable opacification right base. copd exacerbation. ct head r/o ich or cva. pt admitted for syncope, bradycardia. to telemetry. case d/w admitting resident. <Patricia Chen - Last Filed: 04/26/18 17:27> Heart Score/ECG Review #1 General ECG Interpretation: Normal Rate, Normal Intervals Compared to previous ECG there are: Other (LBBB old no change compared to prior ekg.) <Patricia Chen - Last Filed: 04/26/18 17:27>
--- NOTE | 2018-04-26 17:17 | CON.CARD ---
Cardiology Consult (text) - Consultation Consultation Note: Consultation Note: cc: syncope hpi: 87 m hx vertigo, dm, copd, htn, hld, lbbb, cad s/p mi/pci 2004, syst chf, afib p/w syncope. per EMS reportedly had HR 30s and required atropine, HR now 70s in sinus. Per family was in usual state of health until this afternoon, saw him shaking, was unresponsive and then woke up asking for help. Mental status currently not at baseline, per family he is confused. No chest pain, palps, dizziness. Has been on stable dose of metoprolol succinate 200 mg daily, per family he has a heart rate monitor avg HR 70s with 110s when he is active, no low HRs at home. pmh: per hpi psh: cataracts social: ex tob fam: no premature cad, scd ros: per hpi; no vomiting, diarrhea, vision changes, muscle pain, gib hematuria dysuria, wt loss meds: Ambulatory Orders Aspirin [ASA -] 81 mg PO ASDIR 11/21/11 Selenium 200 mcg PO DAILY #0 tablet 11/24/11 Ubidecarenone [Co Q-10] 400 mg PO DAILY #0 capsule 11/24/11 Zinc [Zinc Chelated] 50 mg PO DAILY #0 capsule 11/24/11 Tamsulosin HCl [Flomax] 0.4 mg PO BID 01/19/16 Atorvastatin Ca [Lipitor] 40 mg PO HS 10/30/17 Lisinopril [Zestril] 5 mg PO DAILY 10/30/17 Metoprolol Succinate [Toprol XL -] 200 mg PO BID 10/30/17 Apixaban [Eliquis -] 5 mg PO BID #60 tablet 11/02/17 Ascorbic Acid [Vitamin C] 500 mg PO DAILY 01/17/18 Biotin 1 mg PO DAILY 01/17/18 Cholecalciferol (Vitamin D3) [Vitamin D3] 1,000 unit PO DAILY 01/17/18 Metformin HCl [Metformin HCl ER] 500 mg PO DAILY 01/17/18 Methimazole [Tapazole -] 10 mg PO DAILY 01/17/18 Omeprazole [Prilosec (RX)] 20 mg PO BID 01/17/18 Mag Carb/Aluminum Hydrox/Algin [Gaviscon Liquid] 30 ml PO PRN PRN #1 oral.susp 02/16/18 Omeprazole 20 mg PO DAILY #1 tablet. 02/16/18 Vital Signs Period Temp Pulse Resp BP Sys/Walls Pulse Ox Last 24 Hr 97.1 F 55-73 22-22 133-155/62-74 97-100 nad no jvd irreg s1s2 no mrg cta bl nl eff aaox3 no le e/c/c abd nt nd pos bs no jaundice diaphoresis pos dp pt no carotid bruits Laboratory Last Values WBC 5.9 K/mm3 (4.0-10.0) 04/26/18 15:50 RBC 3.51 M/mm3 (4.00-5.60) L 04/26/18 15:50 Hgb 10.6 GM/dL (11.7-16.9) L 04/26/18 15:50 Hct 31.5 % (35.4-49) L 04/26/18 15:50 MCV 89.7 fl (80-96) 04/26/18 15:50 MCH 30.3 pg (25.7-33.7) 04/26/18 15:50 MCHC 33.8 g/dl (32.0-35.9) 04/26/18 15:50 RDW 18.6 % (11.9-15.9) H 04/26/18 15:50 Plt Count 335 K/MM3 (134-434) D 04/26/18 15:50 MPV 7.5 fl (7.5-11.1) 04/26/18 15:50 Absolute Neuts (auto) 3.6 K/mm3 (1.5-8.0) 04/26/18 15:50 Neutrophils % 62.0 % (42.8-82.8) 04/26/18 15:50 Lymphocytes % 20.7 % (8-40) 04/26/18 15:50 Monocytes % 10.9 % (3.8-10.2) H 04/26/18 15:50 Eosinophils % 5.5 % (0-4.5) H D 04/26/18 15:50 Basophils % 0.9 % (0-2.0) 04/26/18 15:50 Nucleated RBC % 0 % (0-0) 04/26/18 15:50 Sodium 138 mmol/L (136-145) 04/26/18 15:55 Potassium 4.9 mmol/L (3.5-5.1) 04/26/18 15:55 Chloride 106 mmol/L (98-107) 04/26/18 15:55 Carbon Dioxide 27 mmol/L (21-32) 04/26/18 15:55 Anion Gap 5 MMOL/L (8-16) L 04/26/18 15:55 BUN 15 mg/dL (7-18) 04/26/18 15:55 Creatinine 1.3 mg/dL (0.55-1.3) 04/26/18 15:55 Creat Clearance w eGFR 52.34 (>60) 04/26/18 15:55 Random Glucose 101 mg/dL (74-106) 04/26/18 15:55 Lactic Acid 1.4 mmol/L (0.4-2.0) 04/26/18 15:50 Calcium 9.2 mg/dL (8.5-10.1) 04/26/18 15:55 Total Bilirubin 0.2 mg/dL (0.2-1) 04/26/18 15:55 AST 19 U/L (15-37) 04/26/18 15:55 ALT 19 U/L (13-61) 04/26/18 15:55 Alkaline Phosphatase 60 U/L (45-117) 04/26/18 15:55 Creatine Kinase 78 U/L (26-308) 04/26/18 15:50 Troponin I < 0.02 ng/ml (0.00-0.05) 04/26/18 15:50 B-Natriuretic Peptide 352.9 pg/ml (5-450) 04/26/18 15:55 Total Protein 6.4 g/dl (6.4-8.2) 04/26/18 15:55 Albumin 3.3 g/dl (3.4-5.0) L 04/26/18 15:55 cxr: no chf ecg: sinus, old lbbb carotids 11/2016: no sig stenosis mibi 07/2016: apical infarct, no ischemia, lvef 40% echo 10/2017: nl lv size, lvef 45, global hk, nl rv, mild lae, mild tr, mild pr, mild phtn, mild ao root dil echo 07/2016: lvef 40% echo 10/2017: nl lv size, lvef 45, global hk, nl rv, mild lae, mild tr, mild pr, mild phtn, mild ao root dil tele: sinus, LBBB a/p: 87 m hx vertigo, dm, copd, htn, hld, lbbb, cad s/p mi/pci 2004, syst chf, here with syncope syncope, bradycardia - echo, carotid ultrasound pending, infectious workup per primary - episode of bradycardia may be in setting of increased vagal tone - monitoring on tele afib: -continue eliquis. recently changed to 2.5 mg BID dose however Cr is normal here , weight >60 kg, restart at 5 mg BID - continue metoprolol, monitoring on tele htn: -controlled on current meds hld: -cont statin cad: -stable, no angina -no ischemia on recent mibi -cont statin, asa, bb, shama chronic systolic chf: -stable, euvolemic -cont bb, shama
[2018-04-26] MEDS ORDERED: CEFTRIAXONE 1,000 MG in DEXTROSE 5%-WATER - 50 ML IVPB ONE (17:26)
[2018-04-26] MEDS ORDERED: AZITHROMYCIN IVPB 500 MG in DEXTROSE 5%-WATER - 250 ML IVPB ONE (17:26)
[2018-04-26] MEDS ORDERED: CEFTRIAXONE 1 GM/50 ML BAG ONE (17:46)
--- NOTE | 2018-04-26 17:48 | HP ---
CHIEF COMPLAINT: AMS PCP: Dr. Voss HISTORY OF PRESENT ILLNESS: This is a 87 year old male with a history of CAD, s/p stents (1998, 2004), atrial fibrillation on eliquis, , vertigo, DM, hyperthyroid, chronic UTI, HTN, HLD, prostate cancer, who presents after a seizure like episode at work. Patient here with family, daughter and granddaughter here, with complete history. Patient was sitting in chair, when he looked up to see the security camera spinning, (malfuntion with camera), this provoked dizziness and his granddaughter then notices " a look on his face;, eyes somewhat shut, and his arm outstretched and stiff", this episode lasted a few seconds. She called the ambulance, paramedics state patient was bradycardic, and needed 3rounds of atropine to raise HR. Granddaughter states that patient has fitbit and his HR ranges from 60-70s. 85 year old male with significant past medical history of who presents to the ED with worsening ataxia that has been progressively worse for the last few weeks. ER course was notable for: (1) (2) (3) Recent Travel: PAST MEDICAL HISTORY: COPD, diabetes, chronic UTI, prostate cancer, vertigo, hypertension, hyperlipidemia, and coronary artery disease (SD x2, cardiac stent), atrial fibrillation PAST SURGICAL HISTORY: stents Social History: Smoking:past history of smoking; quirl; went to [place] for formerly [facility] recently and quit now again Alcohol:social wiskey and water 3 night per week one drink Drugs: no Family History: Allergies No Known Drug Allergies Allergy (Verified 10/30/17 13:53) HOME MEDICATIONS: Home Medications Medication Instructions Recorded Aspirin [ASA -] 81 mg PO ASDIR 11/21/11 Selenium 200 mcg PO DAILY #0 tablet 11/24/11 Ubidecarenone [Co Q-10] 400 mg PO DAILY #0 capsule 11/24/11 Zinc [Zinc Chelated] 50 mg PO DAILY #0 capsule 11/24/11 Tamsulosin HCl [Flomax] 0.4 mg PO BID 01/19/16 Atorvastatin Ca [Lipitor] 40 mg PO HS 10/30/17 Lisinopril [Zestril] 5 mg PO DAILY 10/30/17 Metoprolol Succinate [Toprol XL -] 200 mg PO BID 10/30/17 Apixaban [Eliquis -] 5 mg PO BID #60 tablet 11/02/17 Ascorbic Acid [Vitamin C] 500 mg PO DAILY 01/17/18 Biotin 1 mg PO DAILY 01/17/18 Cholecalciferol (Vitamin D3) 1,000 unit PO DAILY 01/17/18 [Vitamin D3] Metformin HCl [Metformin HCl ER] 500 mg PO DAILY 01/17/18 Methimazole [Tapazole -] 10 mg PO DAILY 01/17/18 Omeprazole [Prilosec (RX)] 20 mg PO BID 01/17/18 Mag Carb/Aluminum Hydrox/Algin 30 ml PO PRN PRN #1 oral.susp 02/16/18 [Gaviscon Liquid] Omeprazole 20 mg PO DAILY #1 tablet. 02/16/18 REVIEW OF SYSTEMS CONSTITUTIONAL: Positive:: generiziled weakness Absent: fever, chills, diaphoresis, generalized weakness, malaise, loss of appetite, weight change HEENT: Absent: rhinorrhea, nasal congestion, throat pain, throat swelling, difficulty swallowing, mouth swelling, ear pain, eye pain, visual changes CARDIOVASCULAR: Absent: chest pain, syncope, palpitations, irregular heart rate, lightheadedness , peripheral edema RESPIRATORY: Absent: cough, shortness of breath, dyspnea with exertion, orthopnea, wheezing, stridor, hemoptysis GASTROINTESTINAL: Absent: abdominal pain, abdominal distension, nausea, vomiting, diarrhea, constipation, melena, hematochezia GENITOURINARY: Absent: dysuria, frequency, urgency, hesitancy, hematuria, flank pain, genital pain MUSCULOSKELETAL: Absent: myalgia, arthralgia, joint swelling, back pain, neck pain SKIN: Absent: rash, itching, pallor HEMATOLOGIC/IMMUNOLOGIC: Absent: easy bleeding, easy bruising, lymphadenopathy, frequent infections ENDOCRINE: Absent: unexplained weight gain, unexplained weight loss, heat intolerance, cold intolerance NEUROLOGIC: Absent: headache, focal weakness or paresthesias, dizziness, unsteady gait, seizure, mental status changes, bladder or bowel incontinence PSYCHIATRIC: Absent: anxiety, depression, suicidal or homicidal ideation, hallucinations. PHYSICAL EXAMINATION Vital Signs - 24 hr 04/26/18 04/26/18 04/26/18 15:39 15:50 16:10 Temperature 97.1 F L Pulse Rate 55 L Pulse Rate [ 73 Apical] Respiratory 22 H 22 H Rate Blood Pressure 155/74 Blood Pressure 133/62 [Left Arm] O2 Sat by Pulse 97 98 100 Oximetry (%) 04/26/18 17:43 Temperature 97.9 F Pulse Rate Pulse Rate [ 71 Apical] Respiratory 17 Rate Blood Pressure Blood Pressure 127/63 [Left Arm] O2 Sat by Pulse 71 L Oximetry (%) GENERAL: Awake, alert, and fully oriented, in no acute distress. HEAD: Normal with no signs of trauma. EYES: Pupils equal, round and reactive to light, extraocular movements intact, sclera anicteric, conjunctiva clear. No lid lag. EARS, NOSE, THROAT: Ears normal, nares patent, oropharynx clear without exudates. Moist mucous membranes. possible area on tongue bitting on sides of tongue; although this could be old ? NECK: Normal range of motion, supple without lymphadenopathy, JVD, or masses. LUNGS: decreased throughout HEART: Regular rate and rhythm, normal S1 and S2 without murmur, rub or gallop. ABDOMEN: Soft, nontender, not distended, normoactive bowel sounds, no guarding, no rebound, no masses. No hepatomegaly or splenomegaly. MUSCULOSKELETAL: Normal range of motion at all joints. No bony deformities or tenderness. No CVA tenderness. UPPER EXTREMITIES: 2+ pulses, warm, well-perfused. No cyanosis. No clubbing. No peripheral edema. LOWER EXTREMITIES: 2+ pulses, warm, well-perfused. No calf tenderness. No peripheral edema. NEUROLOGICAL: Cranial nerves II-XII intact. Normal speech. PSYCHIATRIC: Cooperative. Good eye contact. Appropriate mood and affect. SKIN: Warm, dry, normal turgor, no rashes or lesions noted, normal capillary refill. Laboratory Results - last 24 hr 04/26/18 04/26/18 04/26/18 15:50 15:50 15:50 WBC 5.9 RBC 3.51 L Hgb 10.6 L Hct 31.5 L MCV 89.7 MCH 30.3 MCHC 33.8 RDW 18.6 H Plt Count 335 D MPV 7.5 Absolute Neuts (auto) 3.6 Neutrophils % 62.0 Lymphocytes % 20.7 Monocytes % 10.9 H Eosinophils % 5.5 H D Basophils % 0.9 Nucleated RBC % 0 Sodium Potassium Chloride Carbon Dioxide Anion Gap BUN Creatinine Creat Clearance w eGFR Random Glucose Lactic Acid 1.4 Calcium Total Bilirubin AST ALT Alkaline Phosphatase Creatine Kinase 78 Troponin I < 0.02 B-Natriuretic Peptide Total Protein Albumin 04/26/18 15:55 WBC RBC Hgb Hct MCV MCH MCHC RDW Plt Count MPV Absolute Neuts (auto) Neutrophils % Lymphocytes % Monocytes % Eosinophils % Basophils % Nucleated RBC % Sodium 138 Potassium 4.9 Chloride 106 Carbon Dioxide 27 Anion Gap 5 L BUN 15 Creatinine 1.3 Creat Clearance w eGFR 52.34 Random Glucose 101 Lactic Acid Calcium 9.2 Total Bilirubin 0.2 AST 19 ALT 19 Alkaline Phosphatase 60 Creatine Kinase Troponin I B-Natriuretic Peptide 352.9 Total Protein 6.4 Albumin 3.3 L ASSESSMENT/PLAN: This is a 87 year old male with a history of CAD, s/p stents (1998, 2004), atrial fibrillation on eliquis, , vertigo, DM, hyperthyroid, chronic UTI, HTN, HLD, prostate cancer, who presents after a seizure like episode at work. #AMS: secondary to most likely seizure? secondary to vasovagal episode; bradycardia? ; r/o CVA/ACS -IV loading dose with keppra; continue 500 bid -heat CT -Carotid dopplers -echocardiogram -bedside water swallow; dyphagia screen -increased eliquis to 5mg bid -neuro checks -on statin -given asa -trend troponin -cardio and neurology consulted #bradycardia; no episodes here -will cont home dose metoprolol due to hx of atrial fibrillation with RVR #atrial fibrillation with RVR -cont metoprolol -eliquis 5mg bid #hyperthyroid: cont methimozole'; -check tsh t4, t3 #DM -insulin ss; bgm #htn: on lisinopril 5mg qd #Chronic uti; check UA for any etiology of infection Diet once passes dysphagia screen VTE ppl ;on eliquis Diposition: monitor on tele Visit type - Emergency Visit Emergency Visit: Yes ED Registration Date: 04/26/18 Care time: The patient presented to the Emergency Department on the above date and was hospitalized for further evaluation of their emergent condition. - New Patient This patient is new to me today: Yes Date on this admission: 04/26/18 - Critical Care Critical Care patient: No
[2018-04-26] MEDS ORDERED: levETIRAcetam 500 MG/5 ML INJECTION VIAL IVPB ONE ×2 (18:45)
[2018-04-26] MEDS ORDERED: AZITHROMYCIN IVPB 500 MG/250 ML BAG IVPB ONE (18:46)
[2018-04-26] MEDS ORDERED: ASPIRIN 81 MG CHEWABLE TABLETS PO SCH (19:00)
--- NOTE | 2018-04-26 19:04 | PN ---
Teaching Attending Note Name of Resident: Jahaira Owens ATTENDING PHYSICIAN STATEMENT I saw and evaluated the patient. I reviewed the resident's note and discussed the case with the resident. I agree with the resident's findings and plan as documented. CC: I was dizzy HPI: Mr Torres is a very pleasant 87 year old male who comes in with AMS. History mainly comes from his daughter at the bedside. She says that he was looking at a camera that was spinning and then became altered. It appeared he had some twitching and either was about to pass out or passed out, it was unclear which. EMS was called and he was found to be bradycardic. He received atropine and this resolved. He was brought in for further evaluation. Currently he says he is feeling fine and is without complaint. He denies fevers, chills, chest pain or pressure, shortness of breath, nausea, vomiting, diarrhea, constipation, difficulty or pain on urination, or swelling. Past Medical History Cardio/Vascular CAD,HTN,Hyperlipdemia Pulmonary COPD Renal/ Cancer,UTI Endocrine Diabetes Mellitus Past Surgical History Past Surgical History TURP Home Medications Medication Instructions Recorded Selenium 200 mcg PO DAILY #0 tablet 11/24/11 Zinc [Zinc Chelated] 50 mg PO DAILY #0 capsule 11/24/11 Tamsulosin HCl [Flomax] 0.4 mg PO BID 01/19/16 Atorvastatin Ca [Lipitor] 40 mg PO Q2D 10/30/17 Lisinopril [Zestril] 5 mg PO DAILY 10/30/17 Metoprolol Succinate [Toprol XL -] 200 mg PO DAILY 10/30/17 Ascorbic Acid [Vitamin C] 500 mg PO DAILY 01/17/18 Biotin 1 mg PO DAILY 01/17/18 Metformin HCl [Metformin HCl ER] 500 mg PO DAILY 01/17/18 Methimazole [Tapazole -] 10 mg PO DAILY 01/17/18 Omeprazole [Prilosec (RX)] 20 mg PO BID 01/17/18 Apixaban [Eliquis -] 5 mg PO BID 04/26/18 Apixaban [Eliquis] 5 mg PO BID 30 Days #60 tablet 04/27/18 Levetiracetam [Keppra] 500 mg PO BID 14 Days #14 tablet 04/27/18 SHx: +tobacco, +alcohol FHx: non-contributory ROS: full review of systems obtained, as per HPI and otherwise negative OBJECTIVE: Gen: nad Pulm: ctab w/o w/r/r CV: rrr w/o m/r/g Abd: bs, s/nt/nd Ext: no c/c/e ASSESSMENT AND PLAN: -case d/w Dr Ngo -admit to telemetry -continue metoprolol regimen -check ECHO and carotid ultrasound -PT consult -if all negative, can discharge tomorrow Problem List - Problems (1) Syncope Code(s): R55 - SYNCOPE AND COLLAPSE Qualifiers: Syncope type: unspecified Qualified Code(s): R55 - Syncope and collapse (2) COPD (chronic obstructive pulmonary disease) Code(s): J44.9 - CHRONIC OBSTRUCTIVE PULMONARY DISEASE, UNSPECIFIED (3) Chronic UTI Code(s): N39.0 - URINARY TRACT INFECTION, SITE NOT SPECIFIED (4) Diabetes Code(s): E11.9 - TYPE 2 DIABETES MELLITUS WITHOUT COMPLICATIONS Qualifiers: Diabetes mellitus type: type 2 Diabetes mellitus long term care pharmacist insulin use: without usp use Diabetes mellitus complication status: with unspecified complications Qualified Code(s): E11.8 - Type 2 diabetes mellitus with unspecified complications (5) Hyperlipidemia Code(s): E78.5 - HYPERLIPIDEMIA, UNSPECIFIED (6) Hypertension Code(s): I10 - ESSENTIAL (PRIMARY) HYPERTENSION (7) Hyperthyroidism Code(s): E05.90 - THYROTOXICOSIS, UNSP WITHOUT THYROTOXIC CRISIS OR STORM
[2018-04-26] MEDS: APIXABAN 5 MG TABLET PO SCH (21:08)
[2018-04-26] MEDS: TAMSULOSIN HCL 0.4 MG CAP PO SCH (21:08)
[2018-04-26] MEDS: INSULIN SLIDING SCALE (NOVOLOG) 1 VIAL SQ SCH (21:28)
[2018-04-26] MEDS ORDERED: APIXABAN 2.5 MG TABLET PO SCH (22:00)
[2018-04-26 23:40] LABS: EPI CELLS 3.7 /HPF (0-5); HYALINE CASTS 3 /hpf (0-8); URINE APPEARANCE TURBID; URINE BACTERIA 12.348 /hpf (NEGATIVE); URINE BILIRUBIN NEGATIVE (<2.0 mg/dL); URINE COLOR YELLOW; URINE GLUCOSE (UA) NEGATIVE (NEGATIVE); URINE KETONE NEGATIVE (NEGATIVE); URINE LEUK ESTERASE 3+ (NEGATIVE); URINE NITRITE POSITIVE (NEGATIVE); URINE PROTEIN NEGATIVE (NEGATIVE); URINE RBC 3 /hpf (0-4); URINE UROBILINOGEN 0.2 mg/dL (0.2-1.0); URINE WBC 5 /hpf (0-5)
[2018-04-26 23:55] VITALS: BMI 23.4
[2018-04-27 02:06] LABS: URINE CRYSTALS NONE SEEN /hpf
[2018-04-27] MEDS: INSULIN SLIDING SCALE (NOVOLOG) 1 VIAL SQ SCH ×3 (06:24→16:22)
[2018-04-27 06:38] LABS: BASO % 0.8 % (0-2.0); EOS % 4.3 % (0-4.5); HEMATOCRIT 27.4 % (35.4-49); HEMOGLOBIN 9.1 GM/dL (11.7-16.9); LYMPH % 16.9 % (8-40); MCH 29.7 pg (25.7-33.7); MCHC 33.4 g/dl (32.0-35.9); MEAN CELL VOLUME 89.1 fl (80-96); MEAN PLT VOLUME 7.4 fl (7.5-11.1); MONO % 12.3 % (3.8-10.2); NEUT % 65.7 % (42.8-82.8); PLATELET COUNT 292 K/MM3 (134-434); RBC 3.07 M/mm3 (4.00-5.60); RDW 18.5 % (11.9-15.9); WHITE BLOOD COUNT 7.3 K/mm3 (4.0-10.0)
[2018-04-27 08:02] LABS: ALK PHOS 45 U/L (45-117); ANION GAP 7 MMOL/L (8-16); BILIRUBIN,TOTAL 0.3 mg/dL (0.2-1); BLOOD UREA NITROGEN 14 mg/dL (7-18); CALCIUM 8.6 mg/dL (8.5-10.1); CHLORIDE 107 mmol/L (98-107); CO2 25 mmol/L (21-32); CREATININE 1.2 mg/dL (0.55-1.3); GLUCOSE,RANDOM 96 mg/dL (74-106); MAGNESIUM 2.2 mg/dL (1.8-2.4); PHOSPHOROUS 3.3 mg/dL (2.5-4.9); SGOT/AST 18 U/L (15-37); SGPT/ALT 17 U/L (13-61); SODIUM 139 mmol/L (136-145); TOT PROT 5.8 g/dl (6.4-8.2)
[2018-04-27] MEDS ORDERED: LISINOPRIL 5 MG TABLET (FP) PO SCH (10:00)
[2018-04-27] MEDS ORDERED: POLYETHYLENE GLYCOL 3350 119 GM BTL PO SCH (10:00)
[2018-04-27] MEDS ORDERED: ZINC SULFATE 220 MG CAPSULE (FP) PO SCH (10:00)
[2018-04-27] MEDS ORDERED: METHIMAZOLE 10 MG TABLET (FP) PO SCH (10:00)
[2018-04-27] MEDS ORDERED: SELENIUM 200 MCG PO SCH (10:00)
[2018-04-27] MEDS ORDERED: ASCORBIC ACID 500 MG TABLET (FP) PO SCH (10:00)
[2018-04-27] MEDS ORDERED: PATIENT'S OWN MEDICATION (NON-FORMULARY) (Biotin [Biotin] 1 MG) PO SCH (10:00)
[2018-04-27] MEDS: TAMSULOSIN HCL 0.4 MG CAP PO SCH (10:39)
[2018-04-27] MEDS: APIXABAN 5 MG TABLET PO SCH (10:39)
--- NOTE | 2018-04-27 10:42 | ECHO ---
Name: MAINOR SANDOVAL Exam:Adult Echocardiogram Study Date: 04/27/2018 07:32 AM Age: 87 yrs Reason For Study: SEIZURE Height: 67 in Weight: 155 lb BSA: 1.8 m2 MMode/2D Measurements & Calculations IVSd: 1.3 cm Ao root diam: 3.7 cm LVIDd: 4.3 cm LA dimension: 3.1 cm LVIDs: 2.8 cm LVPWd: 1.1 cm EDV(Teich): 82.4 ml LVOT diam: 2.0 cm ESV(Teich): 29.8 ml LAV (MOD-bp): 77.3 ml Doppler Measurements & Calculations MV E max luis: 92.2 cm/sec Ao V2 max: 176.5 cm/sec MV A max luis: 119.3 cm/sec Ao max P.5 mmHg MV E/A: 0.77 MV dec time: 0.27 sec LINSEY(V,D): 2.3 cm2 LV V1 max P.1 mmHg MR max luis: 251.1 cm/sec LV V1 max: 123.7 cm/sec MR max P.2 mmHg TR max luis: 309.5 cm/sec PA V2 max: 88.2 cm/sec TR max P.3 mmHg PA max P.1 mmHg Med Peak E' Luis: 5.5 cm/sec PI Vmax: 157.5 cm/sec Med E/e': 16.6 Lat Peak E' Luis: 9.1 cm/sec Lat E/e': 10.1 Left Ventricle Left ventricular systolic function is normal. Ejection Fraction = 50-55%. The transmitral spectral Do ppler flow pattern is normal for age. Right Ventricle The right ventricle is normal in size and function. Atria The left atrium is borderline dilated. Mitral Valve There is mild mitral annular calcification. There is no mitral valve stenosis. There is mild mitral regurgitation. Tricuspid Valve The tricuspid valve is normal in structure and function. There is mild tricuspid regurgitation. Right ventricular systolic pressure is elevated at 30-40mmHg. Aortic Valve There is mild aortic sclerosis.;. No hemodynamically significant valvular aortic stenosis. No aortic regurgitation is present. Great Vessels Borderline aortic root dilatation. Pericardium/Pleura There is no pericardial effusion. Interpretation Summary Left ventricular systolic function is normal. Ejection Fraction = 50-55%. The right ventricle is normal in size and function. There is mild mitral annular calcification. There is mild mitral regurgitation. There is mild tricuspid regurgitation. Right ventricular systolic pressure is elevated at 30-40mmHg. There is mild aortic sclerosis.; Borderline aortic root dilatation. There is no pericardial effusion. MD Ochoa *Nancy 04/27/2018 10:42 AM
--- NOTE | 2018-04-27 11:00 | CONSULT ---
Consult - text type - Consultation Consultation Note: Neurology CHIEF COMPLAINT: Syncope vs seizure HISTORY OF PRESENT ILLNESS: 87 year old male with a history of CAD, s/p stents (1998, 2004), atrial fibrillation on eliquis, , vertigo, DM, hyperthyroid, chronic UTI, HTN, HLD, prostate cancer, who presented with reported episode of loss of consciousness. Per notes, he was seen in the ER with family, daughter and granddaughter. Reportedly was sitting in chair, when he looked up to see the security camera spinning, (malfuntion with camera), this provoked dizziness and his granddaughter then noticed " a look on his face;, eyes somewhat shut, and his arm outstretched and stiff", this episode lasted a few seconds. She called the ambulance, paramedics state patient was bradycardic, and needed 3rounds of atropine to raise HR. Granddaughter stated that patient has fitbit and his HR ranges from 60-70s. noncontrast head CT was completed and did not show significant structural abnormalities. Carotid Dopplers were also completed and without significant hemodynamic stenosis, moderate atherosclerotic disease noted. he is being monitored under telemetry and during my evaluation reports being at baseline. He was started on Keppra and I discussed with hospitalist that we can continue the medication for now and that the patient should follow up with me as an outpatient in the next few weeks for follow-up. He may benefit from having an EEG, wouldn't be completed in the hospital over the weekend, can be done as an outpatient. Recent Travel: PAST MEDICAL HISTORY: COPD, diabetes, chronic UTI, prostate cancer, vertigo, hypertension, hyperlipidemia, and coronary artery disease ([place] x2, cardiac stent), atrial fibrillation PAST SURGICAL HISTORY: stents Social History: Smoking:past history of smoking; quirl; went to [place] for [facility] recently and quit now again Alcohol:social wiskey and water 3 night per week one drink Drugs: no Family History: HTN Allergies No Known Drug Allergies Allergy (Verified 10/30/17 13:53) HOME MEDICATIONS: Home Medications Medication Instructions Recorded Aspirin [ASA -] 81 mg PO ASDIR 11/21/11 Selenium 200 mcg PO DAILY #0 tablet 11/24/11 Ubidecarenone [Co Q-10] 400 mg PO DAILY #0 capsule 11/24/11 Zinc [Zinc Chelated] 50 mg PO DAILY #0 capsule 11/24/11 Tamsulosin HCl [Flomax] 0.4 mg PO BID 01/19/16 Atorvastatin Ca [Lipitor] 40 mg PO HS 10/30/17 Lisinopril [Zestril] 5 mg PO DAILY 10/30/17 Metoprolol Succinate [Toprol XL -] 200 mg PO BID 10/30/17 Apixaban [Eliquis -] 5 mg PO BID #60 tablet 11/02/17 Ascorbic Acid [Vitamin C] 500 mg PO DAILY 01/17/18 Biotin 1 mg PO DAILY 01/17/18 Cholecalciferol (Vitamin D3) 1,000 unit PO DAILY 01/17/18 [Vitamin D3] Metformin HCl [Metformin HCl ER] 500 mg PO DAILY 01/17/18 Methimazole [Tapazole -] 10 mg PO DAILY 01/17/18 Omeprazole [Prilosec (RX)] 20 mg PO BID 01/17/18 Mag Carb/Aluminum Hydrox/Algin 30 ml PO PRN PRN #1 oral.susp 02/16/18 [Gaviscon Liquid] Omeprazole 20 mg PO DAILY #1 tablet. 02/16/18 REVIEW OF SYSTEMS CONSTITUTIONAL: Positive:: generiziled weakness Absent: fever, chills, diaphoresis, generalized weakness, malaise, loss of appetite, weight change HEENT: Absent: rhinorrhea, nasal congestion, throat pain, throat swelling, difficulty swallowing, mouth swelling, ear pain, eye pain, visual changes CARDIOVASCULAR: Absent: chest pain, syncope, palpitations, irregular heart rate, lightheadedness , peripheral edema RESPIRATORY: Absent: cough, shortness of breath, dyspnea with exertion, orthopnea, wheezing, stridor, hemoptysis GASTROINTESTINAL: Absent: abdominal pain, abdominal distension, nausea, vomiting, diarrhea, constipation, melena, hematochezia GENITOURINARY: Absent: dysuria, frequency, urgency, hesitancy, hematuria, flank pain, genital pain MUSCULOSKELETAL: Absent: myalgia, arthralgia, joint swelling, back pain, neck pain SKIN: Absent: rash, itching, pallor HEMATOLOGIC/IMMUNOLOGIC: Absent: easy bleeding, easy bruising, lymphadenopathy, frequent infections ENDOCRINE: Absent: unexplained weight gain, unexplained weight loss, heat intolerance, cold intolerance NEUROLOGIC: Absent: headache, focal weakness or paresthesias, dizziness, unsteady gait, seizure, mental status changes, bladder or bowel incontinence PSYCHIATRIC: Absent: anxiety, depression, suicidal or homicidal ideation, hallucinations. PHYSICAL EXAMINATION Vital Signs Period Temp Pulse Resp BP Sys/Walls Pulse Ox Last 24 Hr 97.1 F-98.7 F 55-77 17-22 122-155/49-74 71-100 GENERAL: Awake, alert, and fully oriented, in no acute distress. HEAD: Normal with no signs of trauma. EYES: Pupils equal, round and reactive to light, extraocular movements intact, sclera anicteric, conjunctiva clear. No lid lag. EARS, NOSE, THROAT: Ears normal, nares patent, oropharynx clear without exudates. Moist mucous membranes. possible area on tongue bitting on sides of tongue; although this could be old ? NECK: Normal range of motion, supple without lymphadenopathy, JVD, or masses. LUNGS: decreased throughout HEART: Regular rate and rhythm, normal S1 and S2 without murmur, rub or gallop. ABDOMEN: Soft, nontender, not distended, normoactive bowel sounds, no guarding, no rebound, no masses. No hepatomegaly or splenomegaly. MUSCULOSKELETAL: Normal range of motion at all joints. No bony deformities or tenderness. No CVA tenderness. UPPER EXTREMITIES: 2+ pulses, warm, well-perfused. No cyanosis. No clubbing. No peripheral edema. LOWER EXTREMITIES: 2+ pulses, warm, well-perfused. No calf tenderness. No peripheral edema. NEUROLOGICAL: Cranial nerves II-XII intact. Normal speech. PSYCHIATRIC: Cooperative. Good eye contact. Appropriate mood and affect. SKIN: Warm, dry, normal turgor, no rashes or lesions noted, normal capillary refill. Laboratory Results - last 24 hr 04/26/18 04/26/18 04/26/18 15:50 15:50 15:50 WBC 5.9 RBC 3.51 L Hgb 10.6 L Hct 31.5 L MCV 89.7 MCH 30.3 MCHC 33.8 RDW 18.6 H Plt Count 335 D MPV 7.5 Absolute Neuts (auto) 3.6 Neutrophils % 62.0 Lymphocytes % 20.7 Monocytes % 10.9 H Eosinophils % 5.5 H D Basophils % 0.9 Nucleated RBC % 0 Sodium Potassium Chloride Carbon Dioxide Anion Gap BUN Creatinine Creat Clearance w eGFR Random Glucose Lactic Acid 1.4 Calcium Total Bilirubin AST ALT Alkaline Phosphatase Creatine Kinase 78 Troponin I < 0.02 B-Natriuretic Peptide Total Protein Albumin 04/26/18 15:55 WBC RBC Hgb Hct MCV MCH MCHC RDW Plt Count MPV Absolute Neuts (auto) Neutrophils % Lymphocytes % Monocytes % Eosinophils % Basophils % Nucleated RBC % Sodium 138 Potassium 4.9 Chloride 106 Carbon Dioxide 27 Anion Gap 5 L BUN 15 Creatinine 1.3 Creat Clearance w eGFR 52.34 Random Glucose 101 Lactic Acid Calcium 9.2 Total Bilirubin 0.2 AST 19 ALT 19 Alkaline Phosphatase 60 Creatine Kinase Troponin I B-Natriuretic Peptide 352.9 Total Protein 6.4 Albumin 3.3 L ASSESSMENT/PLAN: 87 year old male with a history of CAD, s/p stents (1998, 2004), atrial fibrillation on eliquis, , vertigo, DM, hyperthyroid, chronic UTI, HTN, HLD, prostate cancer, who presented with reported episode of loss of consciousness. Per notes, he was seen in the ER with family, daughter and granddaughter. Reportedly was sitting in chair, when he looked up to see the security camera spinning, (malfuntion with camera), this provoked dizziness and his granddaughter then noticed " a look on his face;, eyes somewhat shut, and his arm outstretched and stiff", this episode lasted a few seconds. She called the ambulance, paramedics state patient was bradycardic, and needed 3rounds of atropine to raise HR. Granddaughter stated that patient has fitbit and his HR ranges from 60-70s. noncontrast head CT was completed and did not show significant structural abnormalities. Carotid Dopplers were also completed and without significant hemodynamic stenosis, moderate atherosclerotic disease noted. he is being monitored under telemetry and during my evaluation reports being at baseline. Although I'm not convinced this was seizure, he was started on Keppra and I discussed with hospitalist that we can continue the medication for now and that the patient should follow up with me as an outpatient in the next few weeks for follow-up. He may benefit from having an EEG, wouldn't be completed in the hospital over the weekend, can be done as an outpatient. Possibly related to bradykinesia and cardiogenic. No prior history. Continue cardiac evaluation and optimization. Remains on Eliquis, monitor rate, rhytym. Discussed maintaining adequate hydration. Maintain normotensive range as best possible. Fall precautions. Monitor glucose, tight glycemic control.
--- NOTE | 2018-04-27 11:05 | EKG ---
Test Reason : Blood Pressure : / mmHG Vent. Rate : 083 BPM Atrial Rate : 083 BPM P-R Int : 170 ms QRS Dur : 140 ms QT Int : 396 ms P-R-T Axes : 077 -27 085 degrees QTc Int : 465 ms NORMAL SINUS RHYTHM LEFT BUNDLE BRANCH BLOCK ABNORMAL ECG WHEN COMPARED WITH ECG OF 30-OCT-2017 18:34, SINUS RHYTHM HAS REPLACED ATRIAL FIBRILLATION Confirmed by DOMINIQUE GUILLEN MD ([id number]) on 04/27/2018 11:05:30 AM Referred By: Confirmed By:DOMINIQUE GUILLEN MD
--- NOTE | 2018-04-27 11:55 | PN ---
Progress Note (short form) - Note Progress Note: s: no cp sob palps dizzy o: Vital Signs Period Temp Pulse Resp BP Sys/Walls Pulse Ox Last 24 Hr 97.1 F-98.7 F 55-77 17-22 122-155/49-74 71-100 nad no jvd irreg s1s2 no mrg cta bl nl eff aaox3 no le e/c/c abd nt nd pos bs no jaundice diaphoresis Current Medications Generic Name Dose Route Start Last Admin Trade Name Jeannette PRN Reason Stop Dose Admin Apixaban 5 mg 04/26/18 22:00 04/27/18 10:39 Eliquis - PO 5 mg BID [facility] Administration Ascorbic Acid 500 mg 04/27/18 10:00 04/27/18 10:39 Vitamin C - PO 500 mg DAILY [facility] Administration Atorvastatin Calcium 40 mg 04/28/18 10:00 Lipitor - PO Q2D@1000 [facility] Insulin Aspart 1 vial 04/26/18 22:00 04/27/18 06:24 Novolog Vial Sliding Scale - SQ Not Given ACHS [facility] Protocol Levetiracetam 500 mg 04/27/18 22:00 Keppra Injection - IVPB BID [facility] Lisinopril 5 mg 04/27/18 10:00 04/27/18 10:39 Prinivil PO 5 mg DAILY [facility] Administration Methimazole 10 mg 04/27/18 10:00 04/27/18 10:39 Tapazole - PO 10 mg DAILY [facility] Administration Metoprolol Succinate 200 mg 04/27/18 10:00 04/27/18 10:39 Toprol Xl - PO 200 mg DAILY [facility] Administration Polyethylene Glycol 17 gm 04/27/18 10:00 04/27/18 10:40 Miralax (For Daily Use) - PO 17 gm DAILY [facility] Administration Tamsulosin HCl 0.4 mg 04/26/18 22:00 04/27/18 10:39 Flomax - PO 0.4 mg BID [facility] Administration Zinc Sulfate 220 mg 04/27/18 10:00 04/27/18 10:40 Orazinc - PO Not Given DAILY [facility] CBC, BMP 04/27/18 05:30 04/27/18 05:30 cxr: no chf ecg: sinus, old lbbb carotids 11/2016: no sig stenosis carotids 04/2018: no sig stenosis mibi 07/2016: apical infarct, no ischemia, lvef 40% echo 10/2017: nl lv size, lvef 45, global hk, nl rv, mild lae, mild tr, mild pr, mild phtn, mild ao root dil echo 07/2016: lvef 40% echo 10/2017: nl lv size, lvef 45, global hk, nl rv, mild lae, mild tr, mild pr, mild phtn, mild ao root dil echo 04/2018: nl lv/rv, mild mr, mild tr, rvsp 30-40 tele: sinus, LBBB a/p: 87 m hx vertigo, dm, copd, htn, hld, lbbb, cad s/p mi/pci 2004, syst chf, here with syncope syncope, bradycardia - echo, carotid ultrasound benign. - episode of bradycardia may be in setting of increased vagal tone, tele benign here afib: -continue eliquis -continue metoprolol htn: -controlled on current meds hld: -cont statin cad: -stable, no angina -no ischemia on recent mibi -cont statin, asa, bb, shama chronic systolic chf: -stable, euvolemic -cont bb, shama cardiac mares stable for dc
[2018-04-27 14:54] VITALS: BP 134/54; PULSE 65; TEMP 98.2
--- NOTE | 2018-04-27 16:21 | DS ---
Physical Exam: SUBJECTIVE: Patient seen and examined; no episodes ON; denies chest pain, sob, change in speech, vision; walked with PT OBJECTIVE: Vital Signs Period Temp Pulse Resp BP Sys/Walls Pulse Ox Last 24 Hr 97.9 F-99.6 F 64-78 17-20 122-138/49-63 71-99 PHYSICAL EXAM GENERAL: The patient is awake, alert, and fully oriented, in no acute distress. LUNGS: Breath sounds equal, clear to auscultation bilaterally, no wheezes, no crackles, no accessory muscle use. HEART: Regular rate and rhythm, S1, S2 without murmur, rub or gallop. ABDOMEN: Soft, nontender, nondistended, normoactive bowel sounds, no guarding, no rebound, no hepatosplenomegaly, no masses. EXTREMITIES: 2+ pulses, warm, well-perfused, no edema. NEUROLOGICAL: Cranial nerves II through XII grossly intact. Normal speech, gait not observed. PSYCH: Normal mood, normal affect. SKIN: Warm, dry, normal turgor, no rashes or lesions noted. LABS Laboratory Results - last 24 hr 04/26/18 04/26/18 04/26/18 15:50 15:50 15:50 WBC 5.9 RBC 3.51 L Hgb 10.6 L Hct 31.5 L MCV 89.7 MCH 30.3 MCHC 33.8 RDW 18.6 H Plt Count 335 D MPV 7.5 Absolute Neuts (auto) 3.6 Neutrophils % 62.0 Lymphocytes % 20.7 Monocytes % 10.9 H Eosinophils % 5.5 H D Basophils % 0.9 Nucleated RBC % 0 Sodium Potassium Chloride Carbon Dioxide Anion Gap BUN Creatinine Creat Clearance w eGFR POC Glucometer Random Glucose Lactic Acid 1.4 Calcium Phosphorus Magnesium Ferritin Total Bilirubin AST ALT Alkaline Phosphatase Creatine Kinase 78 Troponin I < 0.02 B-Natriuretic Peptide Total Protein Albumin Vitamin B12 Serum Folate TSH Free T4 Urine Color Urine Appearance Urine pH Ur Specific [place] Urine Protein Urine Glucose (UA) Urine Ketones Urine Blood Urine Nitrite Urine Bilirubin Urine Urobilinogen Ur Leukocyte Esterase Urine WBC (Auto) Urine RBC (Auto) Urine Casts (Auto) U Epithel Cells (Auto) Urine Crystals (Auto) Urine Bacteria (Auto) 04/26/18 04/26/18 04/26/18 15:55 21:14 22:15 WBC RBC Hgb Hct MCV MCH MCHC RDW Plt Count MPV Absolute Neuts (auto) Neutrophils % Lymphocytes % Monocytes % Eosinophils % Basophils % Nucleated RBC % Sodium 138 Potassium 4.9 Chloride 106 Carbon Dioxide 27 Anion Gap 5 L BUN 15 Creatinine 1.3 Creat Clearance w eGFR 52.34 POC Glucometer 102 Random Glucose 101 Lactic Acid Calcium 9.2 Phosphorus Magnesium Ferritin Total Bilirubin 0.2 AST 19 ALT 19 Alkaline Phosphatase 60 Creatine Kinase Troponin I B-Natriuretic Peptide 352.9 Total Protein 6.4 Albumin 3.3 L Vitamin B12 Serum Folate TSH Free T4 Urine Color Yellow Urine Appearance Turbid Urine pH 7.0 Ur Specific [place] 1.005 L Urine Protein Negative Urine Glucose (UA) Negative Urine Ketones Negative Urine Blood Negative Urine Nitrite Positive Urine Bilirubin Negative Urine Urobilinogen 0.2 Ur Leukocyte Esterase 3+ Urine WBC (Auto) 5 Urine RBC (Auto) 3 Urine Casts (Auto) 3 U Epithel Cells (Auto) 3.7 Urine Crystals (Auto) None seen Urine Bacteria (Auto) 12.348 04/27/18 04/27/18 04/27/18 05:30 05:30 05:30 WBC 7.3 RBC 3.07 L Hgb 9.1 L Hct 27.4 L MCV 89.1 MCH 29.7 MCHC 33.4 RDW 18.5 H Plt Count 292 MPV 7.4 L Absolute Neuts (auto) 4.8 Neutrophils % 65.7 Lymphocytes % 16.9 Monocytes % 12.3 H Eosinophils % 4.3 Basophils % 0.8 Nucleated RBC % 0 Sodium 139 Potassium 4.0 Chloride 107 Carbon Dioxide 25 Anion Gap 7 L BUN 14 Creatinine 1.2 Creat Clearance w eGFR 57.41 POC Glucometer Random Glucose 96 Lactic Acid Calcium 8.6 Phosphorus 3.3 Magnesium 2.2 Ferritin Total Bilirubin 0.3 AST 18 ALT 17 Alkaline Phosphatase 45 Creatine Kinase Troponin I B-Natriuretic Peptide Total Protein 5.8 L Albumin 3.0 L Vitamin B12 Serum Folate TSH 2.49 D Free T4 0.97 Urine Color Urine Appearance Urine pH Ur Specific [place] Urine Protein Urine Glucose (UA) Urine Ketones Urine Blood Urine Nitrite Urine Bilirubin Urine Urobilinogen Ur Leukocyte Esterase Urine WBC (Auto) Urine RBC (Auto) Urine Casts (Auto) U Epithel Cells (Auto) Urine Crystals (Auto) Urine Bacteria (Auto) 04/27/18 04/27/18 04/27/18 05:30 05:30 05:30 WBC RBC Hgb Hct MCV MCH MCHC RDW Plt Count MPV Absolute Neuts (auto) Neutrophils % Lymphocytes % Monocytes % Eosinophils % Basophils % Nucleated RBC % Sodium Potassium Chloride Carbon Dioxide Anion Gap BUN Creatinine Creat Clearance w eGFR POC Glucometer Random Glucose Lactic Acid Calcium Phosphorus Magnesium Ferritin 19.1 Total Bilirubin AST ALT Alkaline Phosphatase Creatine Kinase Troponin I < 0.02 B-Natriuretic Peptide Total Protein Albumin Vitamin B12 927 Serum Folate 48 H TSH Free T4 Urine Color Urine Appearance Urine pH Ur Specific [place] Urine Protein Urine Glucose (UA) Urine Ketones Urine Blood Urine Nitrite Urine Bilirubin Urine Urobilinogen Ur Leukocyte Esterase Urine WBC (Auto) Urine RBC (Auto) Urine Casts (Auto) U Epithel Cells (Auto) Urine Crystals (Auto) Urine Bacteria (Auto) 04/27/18 05:47 WBC RBC Hgb Hct MCV MCH MCHC RDW Plt Count MPV Absolute Neuts (auto) Neutrophils % Lymphocytes % Monocytes % Eosinophils % Basophils % Nucleated RBC % Sodium Potassium Chloride Carbon Dioxide Anion Gap BUN Creatinine Creat Clearance w eGFR POC Glucometer 103 Random Glucose Lactic Acid Calcium Phosphorus Magnesium Ferritin Total Bilirubin AST ALT Alkaline Phosphatase Creatine Kinase Troponin I B-Natriuretic Peptide Total Protein Albumin Vitamin B12 Serum Folate TSH Free T4 Urine Color Urine Appearance Urine pH Ur Specific [place] Urine Protein Urine Glucose (UA) Urine Ketones Urine Blood Urine Nitrite Urine Bilirubin Urine Urobilinogen Ur Leukocyte Esterase Urine WBC (Auto) Urine RBC (Auto) Urine Casts (Auto) U Epithel Cells (Auto) Urine Crystals (Auto) Urine Bacteria (Auto) HOSPITAL COURSE: Date of Admission:04/26/18 Date of Discharge: 04/27/18 This is a 87 year old male with a history of CAD, s/p stents (1998, 2004), atrial fibrillation on eliquis, , vertigo, DM, hyperthyroid, chronic UTI, HTN, HLD, prostate cancer, who presents after a seizure vs syncopal like episode with bradycardia. Episode of bradycardia may be in setting of increased vagal tone, this occured enroute to the hospital, needed 3 rounds of atropine to increase HR. ECG with atrial fibrillation, no st-t waves abnormalities. Echocardiogram with mild aortic root dilation, EF55%. Head CT negative. He was maintained on his home dose of metoprolol 200mg qd, without any bradycardic events on tele. Eliquis was increased back to 5mg bid. He will follow up with neurology and cardiology. Patient was also started on keppra 500mg bid. Minutes to complete discharge: 45 Discharge Summary Reason For Visit: SYNCOPE Current Active Problems Syncope (Acute) Condition: Improved - Instructions Diet, Activity, Other Instructions: MR. Torres, you have been evaluated for you symptoms, it seem that you may have had a seizure or a syncopal episode. We started you on a medication called keppra. You will take one pill three times per day. This medication prevents seizures. Please follow up with the neurologist in 1 to 2 weeks to discuss further treatment. Please follow up with your open source developer and your primary doctor with in the same time period. Your head CT was negative for stroke, bleed or acute pathology. please be advised that we increased you eliquis to 5mg twice per day. Please continue to take all your other prescribed medications as directed Remember to take in adequate amount of water daily and a well balanced diet. If you experience any worsening of symptoms including chest pain, shortness of breath , passing out, please return to the emergency room. Referrals: Leonel Mabry MD [Staff Physician] - Taye Srivastava MD [Primary Care Provider] - Disposition: HOME - Home Medications Comprehensive Discharge Medication List: Ambulatory Orders Selenium 200 mcg PO DAILY #0 tablet 11/24/11 Zinc [Zinc Chelated] 50 mg PO DAILY #0 capsule 11/24/11 Tamsulosin HCl [Flomax] 0.4 mg PO BID 01/19/16 Atorvastatin Ca [Lipitor] 40 mg PO Q2D 10/30/17 Lisinopril [Zestril] 5 mg PO DAILY 10/30/17 Metoprolol Succinate [Toprol XL -] 200 mg PO DAILY 10/30/17 Ascorbic Acid [Vitamin C] 500 mg PO DAILY 01/17/18 Biotin 1 mg PO DAILY 01/17/18 Metformin HCl [Metformin HCl ER] 500 mg PO DAILY 01/17/18 Methimazole [Tapazole -] 10 mg PO DAILY 01/17/18 Omeprazole [Prilosec (RX)] 20 mg PO BID 01/17/18 Apixaban [Eliquis -] 5 mg PO BID 04/26/18 Apixaban [Eliquis] 5 mg PO BID 30 Days #60 tablet 04/27/18 Levetiracetam [Keppra] 500 mg PO BID 14 Days #14 tablet 04/27/18 This patient is new to me today: Yes Date on this admission: 04/27/18 Emergency Visit: Yes ED Registration Date: 04/26/18 Care time: The patient presented to the Emergency Department on the above date and was hospitalized for further evaluation of their emergent condition. Critical Care patient: No - Discharge Referral Referred to [facility] Med P.C.: No
--- NOTE | 2018-04-27 16:45 | PN ---
Teaching Attending Note Name of Resident: Jahaira Owens ATTENDING PHYSICIAN STATEMENT I saw and evaluated the patient. I reviewed the resident's note and discussed the case with the resident. I agree with the resident's findings and plan as documented. OBJECTIVE: Last Vital Signs Temp Pulse Resp BP Pulse Ox 36.8 C 65 18 134/54 L 99 04/27/18 14:15 04/27/18 14:15 04/27/18 14:15 04/27/18 14:15 04/27/18 10:00 Gen: nad Pulm: ctab w/o w/r/r CV: rrr w/o m/r/g Abd: +bs, s/nt/nd Ext: no c/c/e CBC, BMP 04/27/18 05:30 04/27/18 05:30 Mr Torres is a very pleasant 87 year old male who came in with syncope, most likely vaso-vagal. However there was some concern for possible seizure activity as well. He was admitted to the hospital under observation. Cardiology and neurology were consulted. He had an ECHO and carotid ultrasound which were normal. He was started on low dose keppra and plan for outpatient EEG. He was seen by PT and ambulated without difficulty. He is safe for discharge home. Problem List - Problems (1) Syncope Code(s): R55 - SYNCOPE AND COLLAPSE Qualifiers: Syncope type: unspecified Qualified Code(s): R55 - Syncope and collapse (2) COPD (chronic obstructive pulmonary disease) Code(s): J44.9 - CHRONIC OBSTRUCTIVE PULMONARY DISEASE, UNSPECIFIED (3) Chronic UTI Code(s): N39.0 - URINARY TRACT INFECTION, SITE NOT SPECIFIED (4) Diabetes Code(s): E11.9 - TYPE 2 DIABETES MELLITUS WITHOUT COMPLICATIONS Qualifiers: Diabetes mellitus type: type 2 Diabetes mellitus terminal block assembler insulin use: without correction use Diabetes mellitus complication status: with unspecified complications Qualified Code(s): E11.8 - Type 2 diabetes mellitus with unspecified complications (5) Hyperlipidemia Code(s): E78.5 - HYPERLIPIDEMIA, UNSPECIFIED (6) Hypertension Code(s): I10 - ESSENTIAL (PRIMARY) HYPERTENSION (7) Hyperthyroidism Code(s): E05.90 - THYROTOXICOSIS, UNSP WITHOUT THYROTOXIC CRISIS OR STORM
[2018-04-27] MEDS ORDERED: levETIRAcetam 500 MG/5 ML INJECTION VIAL IVPB SCH (22:00)
[2018-04-28] MEDS ORDERED: ATORVASTATIN CA 40 MG TABLET (FP) PO SCH (10:00)
== END 2018-04-27 18:34 | disposition home or self-care (01) | DRG 101 ==
LOC: JER 15:21 → JERBED 17:26 → OBSVTOIN 17:51 → J4W 19:52
PROVIDERS: ADMIT Internal Medicine; ATTEND Internal Medicine
DX: R56.9 Unspecified convulsions (principal); I50.22 Chronic systolic (congestive) heart failure; R55 Syncope and collapse; R00.1 Bradycardia, unspecified; I48.91 Unspecified atrial fibrillation; I25.10 Atherosclerotic heart disease of native coronary artery without angina pectoris; E78.5 Hyperlipidemia, unspecified; Z98.61 Coronary angioplasty status; I11.0 Hypertensive heart disease with heart failure; J44.9 Chronic obstructive pulmonary disease, unspecified; E11.9 Type 2 diabetes mellitus without complications; E05.90 Thyrotoxicosis, unspecified without thyrotoxic crisis or storm
CPT/HCPCS: 36415; 70450-TC; 71045-TC-FY; 80053; 81003; 82550; 82607; 82728; 82746; 82962; 83540; 83550; 83605; 83735; 83880; 84100; 84439; 84443; 84481; 84484; 85025; 93005; 93010; 93306-TC; 93880-TC; 97116-GP; 97161-GP; 99284-25; G0378; J7030

== ENCOUNTER 2019-01-04 12:09 | Observation (INO) | payer OTHER, BC ==
--- NOTE | 2019-01-04 12:40 | PDOC ---
Attending Attestation - Resident Resident Name: Dylan Ramos - ED Attending Attestation I have performed the following: I have examined & evaluated the patient, The case was reviewed & discussed with the resident, I agree w/resident's findings & plan, Exceptions are as noted - HPI HPI: 01/04/19 13:20 Mr. Torres is an 87 year old male with a history of CAD, s/p stents (1998, 2004) , paroxysmal atrial fibrillation on xeralto, vertigo, DM, hyperthyroid, HTN, HLD , prostate cancer, seizure d/o who presents to the emergency department status post syncopal episode Pt was with his granddaughter, had an witnessed syncopal episode He went to the store with his daughter and grandson and as he exited the store he became lightheaded, fell forward, struck the left side of his head (+) LOC. No bowel or bladder incontinence No rhythmic shaking to suggest seizure Pt remembers awakening on the ground No chest pain, palpitations, shortness of breath 01/04/19 13:27 - Physicial Exam PE: 01/04/19 12:39 GENERAL: The patient is in no acute distress. ENT: Ears normal, nares patent, oropharynx clear without exudates. Moist mucous membranes. NECK: Normal range of motion, supple, no midline tenderness LUNGS: Breath sounds equal, clear to auscultation bilaterally. No wheezes, and no crackles. HEART:Regular rate and rhythm, normal S1 and S2 without murmur, rub or gallop. ABDOMEN: Soft, nontender, normoactive bowel sounds. EXTREMITIES: Normal range of motion, no edema. NEUROLOGICAL: Cranial nerves II through XII grossly intact. Normal speech. No focal neurological deficits. SKIN: Small laceration noted to the left eye brow 01/04/19 13:32 - Medical Decision Making 01/04/19 13:34 88-year-old male presenting to emergency department status post syncopal episode with head trauma (on Eliquis). Differential diagnosis includes but is not limited to: Vasovagal syncope, seizure disorder, ACS, CVA We will do: Lab EKG Chest x-ray CT head and C-spine We will admit EKG: Sinus rhythm, rate of 63 bpm, left bundle branch block (similar to prior EKG) Laboratory Tests 01/04/19 01/04/19 12:30 12:30 Hgb 10.4 L Hct 32.0 L D Creatine Kinase 78 Troponin I < 0.02 Will admit to telemetry Clinical impression: syncopal episode, initial presentation
[2019-01-04 12:48] LABS: BASO % 0.4 % (0-2.0); EOS % 5.9 % (0-4.5); HEMOGLOBIN 10.4 GM/dL (11.7-16.9); LYMPH % 15.2 % (8-40); MCH 30.7 pg (25.7-33.7); MCHC 32.6 g/dl (32.0-35.9); MEAN CELL VOLUME 94.2 fl (80-96); MEAN PLT VOLUME 6.8 fl (7.5-11.1); MONO % 10.5 % (3.8-10.2); PLATELET COUNT 374 K/MM3 (134-434); RDW 15.4 % (11.9-15.9); WHITE BLOOD COUNT 7.8 K/mm3 (4.0-10.0)
--- NOTE | 2019-01-04 12:48 | PDOC ---
History of Present Illness - General Chief Complaint: Injury Stated Complaint: Syncope/Near Syncope Time Seen by Provider: 01/04/19 12:30 History Source: Patient Exam Limitations: No Limitations - History of Present Illness Initial Comments: Shailesh Torres is an 88 yo M w a pmh of vertigo, COPD, HTN, HLD, LBBB, CAD s/p PCI 2004, systolic HF, paroxysmal afib on xarelto, hyperthyroidism, diverticulosis, GERD with high grade dysplasia, prostate cancer, and IDDM presents to the emergency department s/p witnessed syncopal episode associated with a fall, collapse, + LOC, he hit his head and has a laceration in his left eyebrow. The patient was with his daughter and 1 month old grandson when he went into a store to crop picker some food, as he was exiting the store he became lightheaded, syncopized and fell down hitting his head and lost consciousness for 5 minutes. This fall was witnessed by his daughter. he did not lose control of his bowel or bladder and the daughter states he did not experience any shaking. The patient states that he does not remember how he felt prior to the fall. He denies having experienced any chest pain, SOB, difficulty breathing, headache , blurry vision, numbness, tingling, or weakness prior to syncopizing. PCP: Dr. Srivastava Cards: Dr. Ramos Social Hx: Denies smoking, drinking, or other substance abuse. Hard of hearing. independent in ADL. Allergies: NKA, NKDA PSH: RIH, LIH, laparoscopic repair of left Spigelian hernia, left ORIF, deviated septum repair, tonsillectomy, TURP, colonoscopic polypectomy, and intramucosal adenocarcinoma resection Past History - Past Medical History Allergies/Adverse Reactions: Allergies Allergy/AdvReac Type Severity Reaction Status Date / Time No Known Drug Allergies Allergy Verified 01/04/19 12:46 Home Medications: Ambulatory Orders Tamsulosin HCl [Flomax] 0.4 mg PO BID 01/19/16 Atorvastatin Ca [Lipitor] 20 mg PO ASDIR 10/30/17 Lisinopril [Zestril] 5 mg PO DAILY 10/30/17 Metoprolol Succinate [Toprol XL -] 200 mg PO DAILY 10/30/17 Methimazole [Tapazole -] 10 mg PO DAILY 01/17/18 Omeprazole [Prilosec (RX)] 20 mg PO BID 01/17/18 metFORMIN HCL [Metformin HCl ER] 500 mg PO DAILY 01/17/18 Apixaban [Eliquis] 2.5 mg PO BID 01/04/19 Anemia: Yes Asthma: No Cancer: Yes (PROSTATE) Cardiac Disorders: Yes (MIX2, STENT PLACEMENT, PROXYSMAL ATRIAL FIBRILLATION) CVA: No COPD: Yes (EMPHYSEMA) CHF: No Dementia: No Diabetes: Yes GI Disorders: Yes (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) Disorders: Yes (CHRONIC UTI X 6 YEARS,prostate ca) HTN: Yes Hypercholesterolemia: Yes Liver Disease: No Seizures: No Thyroid Disease: Yes (HYPERTHYROIDISM) - Surgical History Abdominal Surgery: Yes (BILATERAL INGUINAL HERNIA REPAIR, SPIGELIAN HERNIA REPAIR) Appendectomy: No Cardiac Surgery: Yes (STENTS X2) Cholecystectomy: No Lung Surgery: No Neurologic Surgery: No Orthopedic Surgery: Yes (LEFT ANKLE FRACTURE SURGERY) - Immunization History Immunization Up to Date: Yes - Psycho Social/Smoking Cessation Hx Smoking Status: Yes Smoking History: Current every day smoker Have you smoked in the past 12 months: Yes Number of Cigarettes Smoked Daily: 4 If you are a former smoker, when did you quit?: 2013 Information on smoking cessation initiated: No 'Breaking Loose' booklet given: 10/31/17 Hx Alcohol Use: No Drug/Substance Use Hx: No Substance Use Type: None Hx Substance Use Treatment: No Review of Systems - Review of Systems Able to Perform ROS?: Yes Comments:: CONSTITUTIONAL: Absent: fever, no chills, no fatigue EYES: Absent: visual changes ENT: Absent: ear pain, no sore throat CARDIOVASCULAR: Present: Syncope Absent: chest pain, no palpitations RESPIRATORY: Absent: cough, no SOB GI: Absent: abdominal pain, no nausea, no vomiting, no constipation, no diarrhea GENITOURINARY: Absent: dysuria, no frequency, no hematuria MUSKULOSKELETAL: Absent: back pain, no arthralgia, no myalgia SKIN: Present: Laceration Absent: rash NEURO: Absent: headache *Physical Exam - Vital Signs Last Vital Signs Temp Pulse Resp BP Pulse Ox 97.9 F 65 18 137/81 97 01/04/19 12:10 01/04/19 12:10 01/04/19 12:10 01/04/19 12:10 01/04/19 12:10 - Physical Exam GENERAL: Well-appearing, well-nourished. No apparent distress. HEENT: There is a 1 cm superficial laceration above the left eyebrow. Normocephalic. PERRL, EOM intact. CARDIOVASCULAR: Normal S1, S2. Regular rate and rhythm. PULMONARY: No evidence of respiratory distress. Lungs clear to auscultation bilaterally. No wheezing, rales or rhonchi. ABDOMEN: Soft, non-distended, non-tender. EXTREMITIES: Normal ROM in all four extremities. No gross deformities. SKIN: Warm, dry. No rash NEUROLOGICAL: Alert, awake, appropriate. Cranial nerves 2-12 intact. No deficits to light touch in face, upper extremities and lower extremities. No motor deficits in the in face, upper extremities and lower extremities. Normal speech. Heart Score/ECG Review - ECG Intrepretation Rhythm: Regular Rhythm (Normal Sinus rate of 63) - [place]: Left [place] Deviation - P and IA Prominent R with upright T in V1 (true posterior TN): No - QRS Widened: LBBB - ST and T Non Specific ST-T Wave changes: Yes Comment:: LBBB - sgarbossa criteria not met to suggest TN - LBBB is old - ST depressions 1 mm in I, V6and aVL - ECG Impressions Normal ECG: No Non-specific ST Elevation: Yes Ischemic Changes: Yes Comment:: Discordant ST elevations in V1-V3, sgarbossa criteria not met. ED Treatment Course - LABORATORY CBC & Chemistry Diagram: 01/04/19 12:30 01/04/19 12:30 Medical Decision Making - Medical Decision Making Shailesh Torres is an 88 yo M w a pmh of vertigo, COPD, HTN, HLD, LBBB, CAD s/p PCI 2004, systolic HF, paroxysmal afib on xarelto, hyperthyroidism, diverticulosis, GERD with high grade dysplasia, prostate cancer, and IDDM presents to the emergency department s/p witnessed syncopal episode associated with a fall, collapse, + LOC, he hit his head and has a laceration in his left eyebrow. The patient was with his daughter and 1 month old grandson when he went into a store to crop picker some food, as he was exiting the store he became lightheaded, syncopized and fell down hitting his head and lost consciousness for 5 minutes. This fall was witnessed by his daughter. he did not lose control of his bowel or bladder and the daughter states he did not experience any shaking. The patient states that he does not remember how he felt prior to the fall. Vital Signs Temp Pulse Resp BP Pulse Ox 97.9 F 65 18 137/81 97 01/04/19 12:10 01/04/19 12:10 01/04/19 12:10 01/04/19 12:10 01/04/19 12:10 DDx IBNLT: ACS/TN, syncope, CVA/TIA, anemia, electrolyte/metabolic disturbance, arrythmia Plan: Labs, urine, CXR, head CT, cardiac consult, admit telemetry Labs: Negative Trop, unremarkable overall. Urine: Patient has a Urine suggesting a UTI - Prior cultures sensitive to ceftriaxone - 1st dose in ED CXR: No acute pathology Head CT: No acute bleed PCP Consult: Spoke with Dr. Srivastava who would like patient admitted to hospitalist and to have Dr. Cruz evaluate the patient. Cardiac consult: Dr. Cruz - will follow patient. Re-assessment: Patient persistently asymptomatic without headache, confusion, chest pain, or SOB in ER Disposition: Admit Tele obs Discharge - Discharge Information Problems reviewed: Yes Clinical Impression/Diagnosis: Syncope Qualifiers: Syncope type: unspecified Qualified Code(s): R55 - Syncope and collapse UTI (urinary tract infection) Qualifiers: Urinary tract infection type: acute cystitis Hematuria presence: without hematuria Qualified Code(s): N30.00 - Acute cystitis without hematuria Condition: Stable - Admission Yes - Follow up/Referral - Patient Discharge Instructions - Post Discharge Activity
[2019-01-04] MEDS ORDERED: ACETAMINOPHEN 1000 MG/100 ML VIAL (NON FORMULARY) IVPB ONE (12:58)
[2019-01-04] MEDS ORDERED: DIPHTH,PERTUSS(ACELL),TET 0.5 ML DISP.SYRIN IM ONE ×2 (12:58→13:14)
[2019-01-04] MEDS ORDERED: SODIUM CHLORIDE 0.9% 500 ML INFUS.BAG IV ONE (12:58)
[2019-01-04 13:01] LABS: INR 1.13 (0.83-1.09); PROTHROMBIN TIME (PATIENT) 13.3 SEC (9.7-13.0)
[2019-01-04] MEDS ORDERED: ACETAMINOPHEN INJECTION 100 ML IVPB ONE (13:06)
[2019-01-04 13:23] LABS: ALBUMIN 3.3 g/dl (3.4-5.0); ALK PHOS 55 U/L (45-117); ANION GAP 4 MMOL/L (8-16); BILIRUBIN,TOTAL 0.4 mg/dL (0.2-1); BLOOD UREA NITROGEN 17.4 mg/dL (7-18); CHLORIDE 106 mmol/L (98-107); CO2 28 mmol/L (21-32); CREATININE 1.3 mg/dL (0.55-1.3); GLUCOSE,RANDOM 104 mg/dL (74-106); POTASSIUM 4.4 mmol/L (3.5-5.1); SGOT/AST 16 U/L (15-37); SGPT/ALT 18 U/L (13-61); SODIUM 138 mmol/L (136-145); TOT PROT 6.2 g/dl (6.4-8.2)
--- NOTE | 2019-01-04 14:37 | HP ---
CHIEF COMPLAINT: fall with injury to left forehead PCP: Dr. Srivastava PCp Dr. Ramos, cardiology. HISTORY OF PRESENT ILLNESS: Patient is an 88 year old male with a significant past medical history of vertigo, COPD, HTN, HLD, CAD s/p PCI 2004, systolic HF, paroxysmal afib on Eliquis, hyperthyroidism, diverticulosis, GERD, prostate cancer, and diabetes. He presents to the ED s/p witnessed syncopal episode with 1 minute LOC loss. Patient's granddaughter was present during the episode. Patient reports that he went to the grocery store with his family, after exiting the store, he became lightheaded and woke up on the floor. His granddaughter states he passed out for under a minute. Patient did not lose continence and grandauter denies that patient had any tremors. In the ED, patient reports that he feels better and does not recall any of the events. He denies chest pain, shortness of breath or difficulty breathing. No blurry vision or weakness. Patient was seen at [facility] on 04/2018 and discharged on Keppra BID dosing. He saw Dr. Mabry and Keppra was stopped after EEG per granddaughter. Patient is no longer on Keppra, but was on it for about 6 weeks after last hospitalization. ER course was notable for: (1) negative head ct, cervical spine imaging negative (2) trop neg x 1 (3) Sinus rhythm, rate of 63 bpm, left bundle branch block (4) UA indicates uti, given ceftriaxone 1 gram in ed. uc pending Recent Travel: travelled to [place] for Thanksgiving PAST MEDICAL/SURGICAL HISTORY: RIH, LIH, laparoscopic repair of left Spigelian hernia, left ORIF, deviated septum repair, tonsillectomy, TURP, colonoscopic polypectomy, and intramucosal adenocarcinoma resection Social History: lives alone. dean manages his medications Smoking: smokes 3-4 cigarettes per day Alcohol: none Drugs: none Allergies No Known Drug Allergies Allergy (Verified 01/04/19 12:46) HOME MEDICATIONS: Home Medications Medication Instructions Recorded Selenium 200 mcg PO DAILY #0 tablet 11/24/11 Zinc [Zinc Chelated] 50 mg PO DAILY #0 capsule 11/24/11 Tamsulosin HCl [Flomax] 0.4 mg PO BID 01/19/16 Atorvastatin Ca [Lipitor] 40 mg PO Q2D 10/30/17 Lisinopril [Zestril] 5 mg PO DAILY 10/30/17 Metoprolol Succinate [Toprol XL -] 200 mg PO DAILY 10/30/17 Ascorbic Acid [Vitamin C] 500 mg PO DAILY 01/17/18 Biotin 1 mg PO DAILY 01/17/18 Methimazole [Tapazole -] 10 mg PO DAILY 01/17/18 Omeprazole [Prilosec (RX)] 20 mg PO BID 01/17/18 metFORMIN HCL [Metformin HCl ER] 500 mg PO DAILY 01/17/18 Apixaban [Eliquis -] 5 mg PO BID 04/26/18 Apixaban [Eliquis] 5 mg PO BID 30 Days #60 tablet 04/27/18 Levetiracetam [Keppra] 500 mg PO BID 14 Days #14 tablet 04/27/18 PHYSICAL EXAMINATION Vital Signs - 24 hr 01/04/19 12:10 Temperature 97.9 F Pulse Rate 65 Respiratory 18 Rate Blood Pressure 137/81 O2 Sat by Pulse 97 Oximetry (%) GENERAL: Awake, alert, and fully oriented, in no acute distress. HEAD: left forehead, small laceration s/p fall EYES: Pupils equal, round and reactive to light, extraocular movements intact, sclera anicteric, conjunctiva clear. No lid lag. EARS, NOSE, THROAT: Ears normal, nares patent, oropharynx clear without exudates. Moist mucous membranes. NECK: Normal range of motion, supple without lymphadenopathy, JVD, or masses. LUNGS: Breath sounds equal, clear to auscultation bilaterally. No wheezes, and no crackles. No accessory muscle use. HEART: Regular rate and rhythm ABDOMEN: Soft, nontender, not distended, normoactive bowel sounds, no guarding, no rebound, no masses. MUSCULOSKELETAL: Normal range of motion at all joints. No bony deformities or tenderness. No CVA tenderness. UPPER EXTREMITIES: No clubbing. No peripheral edema. LOWER EXTREMITIES: No calf tenderness. No peripheral edema. NEUROLOGICAL: Normal speech. Normal gait. PSYCHIATRIC: Cooperative. Good eye contact. Appropriate mood and affect. SKIN: left forehead laceration Laboratory Results - last 24 hr 01/04/19 01/04/19 01/04/19 12:30 12:30 12:30 WBC 7.8 RBC 3.40 L Hgb 10.4 L Hct 32.0 L D MCV 94.2 MCH 30.7 MCHC 32.6 RDW 15.4 D Plt Count 374 D MPV 6.8 L Absolute Neuts (auto) 5.3 Neutrophils % 68.0 Lymphocytes % 15.2 Monocytes % 10.5 H Eosinophils % 5.9 H Basophils % 0.4 Nucleated RBC % 0 PT with INR 13.30 H INR 1.13 H Sodium 138 Potassium 4.4 Chloride 106 Carbon Dioxide 28 Anion Gap 4 L BUN 17.4 Creatinine 1.3 Est GFR (CKD-EPI)AfAm 56.86 Est GFR (CKD-EPI)NonAf 49.06 Random Glucose 104 Calcium 9.0 Total Bilirubin 0.4 AST 16 ALT 18 Alkaline Phosphatase 55 Creatine Kinase 78 Troponin I < 0.02 Total Protein 6.2 L Albumin 3.3 L ASSESSMENT/PLAN: Problem List - Problem (1) Syncope Assessment/Plan: Syncope and collapse with head injury initial head ct negative, will repeat head ct in a.m since patient on ACTV8 monitor mental status was previously on keppra earlier in the year but negative EEG per [facility]. will refer to Dr. Mabry on d/c monitor labs, monitor on tele troponins negative x 1 cardiology following maintain fall precautions physical therapy consult will order orthostatics Code(s): R55 - SYNCOPE AND COLLAPSE Qualifiers: Syncope type: unspecified Qualified Code(s): R55 - Syncope and collapse (2) UTI (urinary tract infection) Assessment/Plan: UA suggest UTI, given ceftriaxone in ED, will continue pending UC. will hydrate gently overnight. 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 - New Patient This patient is new to me today: Yes Date on this admission: 01/04/19 - Critical Care Critical Care patient: No
--- NOTE | 2019-01-04 15:49 | CON.CARD ---
Cardiology Consult (text) - Consultation Consultation Note: cc: syncope hpi: 88 m hx vertigo, dm, copd, htn, hld, lbbb, cad s/p mi/pci 2004, syst chf, afib p/w syncope. Was at store and felt fine but then had episode of lightheadedness and passed out to ground, bumped his head. Remembers waking up on floor. Feels well now. No cp sob palps pnd orthopnea, le edema. Had similar episode earlier this year. Sees me for cardio. pmh: per hpi psh: cataracts social: ex tob fam: no premature cad, scd ros: per hpi; no vomiting, diarrhea, vision changes, muscle pain, gib hematuria dysuria, wt loss Home Medications Medication Instructions Recorded Selenium 200 mcg PO DAILY #0 tablet 11/24/11 Zinc [Zinc Chelated] 50 mg PO DAILY #0 capsule 11/24/11 Tamsulosin HCl [Flomax] 0.4 mg PO BID 01/19/16 Atorvastatin Ca [Lipitor] 40 mg PO Q2D 10/30/17 Lisinopril [Zestril] 5 mg PO DAILY 10/30/17 Metoprolol Succinate [Toprol XL -] 200 mg PO DAILY 10/30/17 Ascorbic Acid [Vitamin C] 500 mg PO DAILY 01/17/18 Biotin 1 mg PO DAILY 01/17/18 Methimazole [Tapazole -] 10 mg PO DAILY 01/17/18 Omeprazole [Prilosec (RX)] 20 mg PO BID 01/17/18 metFORMIN HCL [Metformin HCl ER] 500 mg PO DAILY 01/17/18 Apixaban [Eliquis -] 5 mg PO BID 04/26/18 Apixaban [Eliquis] 5 mg PO BID 30 Days #60 tablet 04/27/18 Levetiracetam [Keppra] 500 mg PO BID 14 Days #14 tablet 04/27/18 Vital Signs Period Temp Pulse Resp BP Sys/Walls Pulse Ox Last 24 Hr 97.9 F 63-65 17-18 130-137/65-81 97-97 nad no jvd rrr s1s2 no mrg cta bl nl eff aaox3 no le e/c/c abd nt nd pos bs no jaundice diaphoresis pos dp pt no carotid bruits Laboratory Last Values WBC 7.8 K/mm3 (4.0-10.0) 01/04/19 12:30 RBC 3.40 M/mm3 (4.00-5.60) L 01/04/19 12:30 Hgb 10.4 GM/dL (11.7-16.9) L 01/04/19 12:30 Hct 32.0 % (35.4-49) L D 01/04/19 12:30 MCV 94.2 fl (80-96) 01/04/19 12:30 MCH 30.7 pg (25.7-33.7) 01/04/19 12:30 MCHC 32.6 g/dl (32.0-35.9) 01/04/19 12:30 RDW 15.4 % (11.9-15.9) D 01/04/19 12:30 Plt Count 374 K/MM3 (134-434) D 01/04/19 12:30 MPV 6.8 fl (7.5-11.1) L 01/04/19 12:30 Absolute Neuts (auto) 5.3 K/mm3 (1.5-8.0) 01/04/19 12:30 Neutrophils % 68.0 % (42.8-82.8) 01/04/19 12:30 Lymphocytes % 15.2 % (8-40) 01/04/19 12:30 Monocytes % 10.5 % (3.8-10.2) H 01/04/19 12:30 Eosinophils % 5.9 % (0-4.5) H 01/04/19 12:30 Basophils % 0.4 % (0-2.0) 01/04/19 12:30 Nucleated RBC % 0 % (0-0) 01/04/19 12:30 PT with INR 13.30 SEC (9.7-13.0) H 01/04/19 12:30 INR 1.13 (0.83-1.09) H 01/04/19 12:30 Sodium 138 mmol/L (136-145) 01/04/19 12:30 Potassium 4.4 mmol/L (3.5-5.1) 01/04/19 12:30 Chloride 106 mmol/L (98-107) 01/04/19 12:30 Carbon Dioxide 28 mmol/L (21-32) 01/04/19 12:30 Anion Gap 4 MMOL/L (8-16) L 01/04/19 12:30 BUN 17.4 mg/dL (7-18) 01/04/19 12:30 Creatinine 1.3 mg/dL (0.55-1.3) 01/04/19 12:30 Est GFR (CKD-EPI)AfAm 56.86 01/04/19 12:30 Est GFR (CKD-EPI)NonAf 49.06 01/04/19 12:30 Random Glucose 104 mg/dL (74-106) 01/04/19 12:30 Calcium 9.0 mg/dL (8.5-10.1) 01/04/19 12:30 Total Bilirubin 0.4 mg/dL (0.2-1) 01/04/19 12:30 AST 16 U/L (15-37) 01/04/19 12:30 ALT 18 U/L (13-61) 01/04/19 12:30 Alkaline Phosphatase 55 U/L (45-117) 01/04/19 12:30 Creatine Kinase 78 U/L (26-308) 01/04/19 12:30 Troponin I < 0.02 ng/ml (0.00-0.05) 01/04/19 12:30 Total Protein 6.2 g/dl (6.4-8.2) L 01/04/19 12:30 Albumin 3.3 g/dl (3.4-5.0) L 01/04/19 12:30 cxr: clear lungs ecg: sinus, old lbbb carotids 11/2016: no sig stenosis carotids 04/2018: no sig stenosis mibi 07/2016: apical infarct, no ischemia, lvef 40% echo 10/2017: nl lv size, lvef 45, global hk, nl rv, mild lae, mild tr, mild pr, mild phtn, mild ao root dil echo 07/2016: lvef 40% echo 10/2017: nl lv size, lvef 45, global hk, nl rv, mild lae, mild tr, mild pr, mild phtn, mild ao root dil echo 04/2018: nl lv/rv, mild mr, mild tr, rvsp 30-40 echo 10/2018 (in office): nl lv/rv, IASA, mild tr, mild pr, nl rvsp tele: sinus a/p: 88 m hx vertigo, dm, copd, htn, hld, lbbb, cad s/p mi/pci 2004, syst chf, here with syncope syncope: - similar episode earlier this year. Has had recent unremarkable echo and carotids - earlier this year possible seizure activity considered as etiology, had seen neuro - currently feeling better, tele benign. would check one more set of cardiac markers and if benign then ok for dc from cardiac pov with outpt f/u for a 30 day event monitor. afib: -continue eliquis -continue metoprolol htn: -controlled on current meds hld: -cont statin cad: -stable, no angina -no ischemia on recent mibi -cont statin, asa, bb, shama -no signs acs chronic systolic chf: -recent echos have shown nl lvef -stable, euvolemic -cont bb, shama
[2019-01-04 17:04] LABS: EPI CELLS 0.3 /HPF (0-5/HPF); HYALINE CASTS 3 /lpf (0-8); PH,URINE 5.5 (5.0-8.0); URINE APPEARANCE CLOUDY; URINE BACTERIA 2901.9 /hpf (NEGATIVE); URINE BILIRUBIN NEGATIVE (NEGATIVE); URINE COLOR YELLOW; URINE GLUCOSE (UA) NEGATIVE (NEGATIVE); URINE KETONE NEGATIVE (NEGATIVE); URINE LEUK ESTERASE 2+ (NEGATIVE); URINE NITRITE POSITIVE (NEGATIVE); URINE PROTEIN NEGATIVE (NEGATIVE); URINE RBC 7 /hpf (0-4); URINE UROBILINOGEN 0.2 mg/dL (0.2-1.0); URINE WBC 48 /hpf (0-5)
[2019-01-04 17:25] LABS: URINE CRYSTALS NEGATIVE /hpf
[2019-01-04 18:54] VITALS: BMI 23.2
[2019-01-04] MEDS ORDERED: CEFTRIAXONE 1,000 MG in DEXTROSE 5%-WATER - 50 ML IVPB ONE (19:28)
[2019-01-04] MEDS: APIXABAN 5 MG TABLET PO SCH (21:07)
[2019-01-04] MEDS: TAMSULOSIN HCL 0.4 MG CAP PO SCH (21:07)
[2019-01-04] MEDS ORDERED: DEXTROSE 5%-WATER - 50 ML IVPB ONE (21:12)
[2019-01-04] MEDS ORDERED: cefTRIAXone SODIUM 1 GM VIAL ONE (21:12)
[2019-01-04] MEDS: CEFTRIAXONE 1 GM in DEXTROSE 5%-WATER - 50 ML IVPB SCH (21:13)
[2019-01-04] MEDS ORDERED: SODIUM CHLORIDE 1,000 ML IV SCH (21:15)
[2019-01-04] MEDS ORDERED: ATORVASTATIN CA 20 MG TABLET (FP) PO SCH (22:00)
[2019-01-05] MEDS ORDERED: PT OWN MED DRAWER 7, Y5N ONE (06:14)
[2019-01-05 07:40] LABS: BASO % 0.5 % (0-2.0); EOS % 5.2 % (0-4.5); HEMATOCRIT 29.7 % (35.4-49); HEMOGLOBIN 9.7 GM/dL (11.7-16.9); LYMPH % 12.5 % (8-40); MCH 30.6 pg (25.7-33.7); MCHC 32.8 g/dl (32.0-35.9); MEAN CELL VOLUME 93.5 fl (80-96); MEAN PLT VOLUME 7.8 fl (7.5-11.1); NEUT % 71.8 % (42.8-82.8); PLATELET COUNT 327 K/MM3 (134-434); RBC 3.18 M/mm3 (4.00-5.60); RDW 15.6 % (11.9-15.9); WHITE BLOOD COUNT 9.5 K/mm3 (4.0-10.0)
--- NOTE | 2019-01-05 07:50 | PN ---
Progress Note, Physician Chief Complaint: syncope History of Present Illness: describes history of walking to store to buy breakfast at 11:30 am. did not eat or drink fluids prior to that, other than regular-sized strong coffee. walked out of store, DENIES prodrome incl LH--awoke on ground and felt very dizzy with alteration in vision. when tried to stand he was very dizzy. all resolved in several seconds. at baseline he is dizzy when gets up from bending down and sometimes when walking around--stable sx here no cp, sob, palp + cigs - Current Medication List Current Medications: Active Medications Apixaban (Eliquis -) 5 mg PO BID [facility] Last Admin: 01/04/19 21:07 Dose: 5 mg Atorvastatin Calcium (Lipitor -) 20 mg PO HS [facility] Last Admin: 01/04/19 21:07 Dose: 20 mg Ceftriaxone Sodium 1 gm/ (Dextrose) 50 mls @ 200 mls/hr IVPB DAILY [facility]; Protocol Last Admin: 01/04/19 21:13 Dose: 200 mls/hr Sodium Chloride (Normal Saline -) 1,000 mls @ 50 mls/hr IV ASDIR [facility] Stop: 01/05/19 21:06 Last Admin: 01/04/19 21:14 Dose: 50 mls/hr Lisinopril (Prinivil) 5 mg PO DAILY [facility] Metformin HCl (Glucophage Xr -) 500 mg PO ACBK [facility] Last Admin: 01/05/19 06:27 Dose: 500 mg Methimazole (Tapazole -) 10 mg PO DAILY [facility] Metoprolol Succinate (Toprol Xl -) 200 mg PO DAILY [facility] Non-Formulary Medication (Biotin [Biotin]) 1 mg PO DAILY [facility] Pantoprazole Sodium (Protonix -) 40 mg PO DAILY [facility] Tamsulosin HCl (Flomax -) 0.4 mg PO Q12H [facility] Last Admin: 01/04/19 21:07 Dose: 0.4 mg - Objective Vital Signs: Vital Signs Temperature 98 F 01/05/19 06:21 Pulse Rate 60 01/05/19 06:21 Respiratory Rate 16 01/05/19 06:21 Blood Pressure 116/37 L 01/05/19 06:21 O2 Sat by Pulse Oximetry (%) 99 01/04/19 20:05 Constitutional: Yes: No Distress, Calm Eyes: No: Sclera Icterus HENT: No: Nasal Congestion Cardiovascular: Yes: Regular Rate and Rhythm, S1, S2, Other (PMI non diplaced). No: Gallop, Murmur Respiratory: Yes: CTA Bilaterally, Wheezes (faint bases). No: Accessory Muscle Use, Rales Gastrointestinal: Yes: Normal Bowel Sounds, Soft. No: Tenderness Musculoskeletal: Yes: Other (No kyphosis) Extremities: No: Cold, Cyanosis Edema: No Integumentary: No: Jaundice Neurological: Yes: Alert, Oriented (x3) Psychiatric: No: Agitated Labs: INR, PTT INR 1.13 (0.83-1.09) H 01/04/19 12:30 Assessment/Plan ecg: sinus, old lbbb carotids 04/2018: no sig stenosis mibi 07/2016: apical infarct, no ischemia, lvef 40% echo 10/2018 (in office): nl lv/rv, IASA, mild tr, mild pr, nl rvsp tele: NSR, several episodes of 2:1 AVB occurring overnight btw 1-2:30 am a/p: 88 m hx vertigo, dm, copd, htn, hld, lbbb, cad s/p mi/pci 2004, syst chf, here with syncope syncope, 2:1 AV block - similar episode earlier this year--workup neg including unremarkable echo and carotids - no signs ACS - check orthostatics - tele here with 2:1 AVB during sleep 1-2am, baseline LBBB, no apparent respirophasic R-R variation preceding episode of block to clinch the diagnosis that this was vagally-mediated. - reviewed ECG and strips with EP--recommends PM implant as inpatient given hi statistical likelihood of pathological conduction disease and future syncopes. d /w'd pt who agrees. plan to transfer to [place] for PPM prior to discharge afib: -continue eliquis -continue metoprolol htn: -controlled on current meds hld: -cont statin cad: -trop neg x 2, ecg old LBBB. no angina. -no ischemia 2017 -cont statin, asa, bb, shama -no signs acs chronic systolic chf: -recent echos have shown nl lvef -stable, euvolemic -cont bb, shama
[2019-01-05 07:51] LABS: ALBUMIN 2.8 g/dl (3.4-5.0); BILIRUBIN,TOTAL 0.4 mg/dL (0.2-1); CALCIUM 8.6 mg/dL (8.5-10.1); CREATININE 1.3 mg/dL (0.55-1.3); POTASSIUM 4.3 mmol/L (3.5-5.1); TOT PROT 5.4 g/dl (6.4-8.2)
[2019-01-05] MEDS ORDERED: cefTRIAXone SODIUM 1 GM VIAL ONE (09:36)
[2019-01-05] MEDS ORDERED: DEXTROSE 5%-WATER - 50 ML IVPB ONE (09:36)
[2019-01-05] MEDS: CEFTRIAXONE 1 GM in DEXTROSE 5%-WATER - 50 ML IVPB SCH (09:51)
[2019-01-05] MEDS: APIXABAN 5 MG TABLET PO SCH (09:51)
[2019-01-05] MEDS: TAMSULOSIN HCL 0.4 MG CAP PO SCH (09:51)
[2019-01-05] MEDS ORDERED: METHIMAZOLE 10 MG TABLET (FP) PO SCH (10:00)
[2019-01-05] MEDS ORDERED: LISINOPRIL 5 MG TABLET (FP) PO SCH (10:00)
[2019-01-05] MEDS ORDERED: PANTOPRAZOLE 40 MG TABLET (FP) PO SCH (10:00)
[2019-01-05] MEDS ORDERED: PATIENT'S OWN MEDICATION (NON-FORMULARY) (Biotin [Biotin] 1 MG) PO SCH (10:00)
--- NOTE | 2019-01-05 17:25 | PN ---
Physical Exam: SUBJECTIVE: Patient seen and examined at the bedside. no chest pain or shortness of breath. patient agrees to transfer to [facility] for ppm. OBJECTIVE: Patient is an 88 year old male with a significant past medical history of vertigo, COPD, HTN, HLD, CAD s/p PCI 2004, systolic HF, paroxysmal afib on Eliquis, hyperthyroidism, diverticulosis, GERD, prostate cancer, and diabetes. He presents to the ED s/p witnessed syncopal episode with 1 minute LOC loss. Troponins negative. telemonitor this a.m. shows episodes bradycardia in the 30- s 40s. Seen and evaluated by cardiology and plan is to transfer to [facility] for possible PPM. Period Temp Pulse Resp BP Sys/Walls Pulse Ox Last 24 Hr 97.1 F-98.2 F 40-64 16-20 112-146/37-87 99-99 GENERAL: Awake, alert, and fully oriented, in no acute distress. HEAD: left forehead, small laceration s/p fall EYES: Pupils equal, round and reactive to light, extraocular movements intact, sclera anicteric, conjunctiva clear. No lid lag. EARS, NOSE, THROAT: Ears normal, nares patent, oropharynx clear without exudates. Moist mucous membranes. NECK: Normal range of motion, supple without lymphadenopathy, JVD, or masses. LUNGS: Breath sounds equal, clear to auscultation bilaterally. No wheezes, and no crackles. No accessory muscle use. HEART: Regular rate and rhythm ABDOMEN: Soft, nontender, not distended, normoactive bowel sounds, no guarding, no rebound, no masses. MUSCULOSKELETAL: Normal range of motion at all joints. No bony deformities or tenderness. No CVA tenderness. UPPER EXTREMITIES: No clubbing. No peripheral edema. LOWER EXTREMITIES: No calf tenderness. No peripheral edema. NEUROLOGICAL: Normal speech. Normal gait. PSYCHIATRIC: Cooperative. Good eye contact. Appropriate mood and affect. SKIN: left forehead laceration Laboratory Results - last 24 hr 01/04/19 01/04/19 01/04/19 16:15 20:35 20:35 WBC RBC Hgb Hct MCV MCH MCHC RDW Plt Count MPV Absolute Neuts (auto) Neutrophils % Lymphocytes % Monocytes % Eosinophils % Basophils % Nucleated RBC % Sodium Potassium Chloride Carbon Dioxide Anion Gap BUN Creatinine Est GFR (CKD-EPI)AfAm Est GFR (CKD-EPI)NonAf POC Glucometer 91 Random Glucose Hemoglobin A1c % Calcium Magnesium Total Bilirubin AST ALT Alkaline Phosphatase Troponin I < 0.02 Total Protein Albumin Urine Crystals (Auto) Negative 01/05/19 01/05/19 01/05/19 06:05 06:05 06:05 WBC 9.5 RBC 3.18 L Hgb 9.7 L Hct 29.7 L MCV 93.5 MCH 30.6 MCHC 32.8 RDW 15.6 Plt Count 327 MPV 7.8 D Absolute Neuts (auto) 6.8 Neutrophils % 71.8 Lymphocytes % 12.5 Monocytes % 10.0 Eosinophils % 5.2 H Basophils % 0.5 Nucleated RBC % 0 Sodium 141 Potassium 4.3 Chloride 110 H Carbon Dioxide 26 Anion Gap 6 L BUN 20.0 H Creatinine 1.3 Est GFR (CKD-EPI)AfAm 56.86 Est GFR (CKD-EPI)NonAf 49.06 POC Glucometer Random Glucose 88 Hemoglobin A1c % 5.7 Calcium 8.6 Magnesium 2.0 Total Bilirubin 0.4 AST 16 ALT 16 Alkaline Phosphatase 43 L Troponin I Total Protein 5.4 L Albumin 2.8 L Urine Crystals (Auto) 01/05/19 01/05/19 06:12 17:04 WBC RBC Hgb Hct MCV MCH MCHC RDW Plt Count MPV Absolute Neuts (auto) Neutrophils % Lymphocytes % Monocytes % Eosinophils % Basophils % Nucleated RBC % Sodium Potassium Chloride Carbon Dioxide Anion Gap BUN Creatinine Est GFR (CKD-EPI)AfAm Est GFR (CKD-EPI)NonAf POC Glucometer 88 111 Random Glucose Hemoglobin A1c % Calcium Magnesium Total Bilirubin AST ALT Alkaline Phosphatase Troponin I Total Protein Albumin Urine Crystals (Auto) Active Medications Generic Name Dose Route Start Last Admin Trade Name Freq PRN Reason Stop Dose Admin Apixaban 5 mg 01/04/19 22:00 01/05/19 09:51 Eliquis - PO 5 mg BID [facility] Administration Atorvastatin Calcium 20 mg 01/04/19 22:00 01/04/19 21:07 Lipitor - PO 20 mg HS [facility] Administration Ceftriaxone Sodium 1 gm/ 50 mls @ 200 mls/hr 01/04/19 21:15 01/05/19 09:51 Dextrose IVPB 200 mls/hr DAILY [facility] Administration Protocol Sodium Chloride 1,000 mls @ 50 mls/hr 01/04/19 21:15 01/04/19 21:14 Normal Saline - IV 01/05/19 21:06 50 mls/hr ASDIR [facility] Administration Lisinopril 5 mg 01/05/19 10:00 01/05/19 09:51 Prinivil PO 5 mg DAILY [facility] Administration Metformin HCl 500 mg 01/05/19 07:00 01/05/19 06:27 Glucophage Xr - PO 500 mg ACBK [facility] Administration Methimazole 10 mg 01/05/19 10:00 01/05/19 09:50 Tapazole - PO 10 mg DAILY [facility] Administration Metoprolol Succinate 200 mg 01/05/19 10:00 01/05/19 09:50 Toprol Xl - PO 200 mg DAILY [facility] Administration Non-Formulary Medication 1 mg 01/05/19 10:00 Biotin [Biotin] PO DAILY [facility] Pantoprazole Sodium 40 mg 01/05/19 10:00 01/05/19 09:50 Protonix - PO 40 mg DAILY [facility] Administration Tamsulosin HCl 0.4 mg 01/04/19 20:30 01/05/19 09:51 Flomax - PO 0.4 mg Q12H [facility] Administration ASSESSMENT/PLAN: Problem List - Problems (1) Syncope Assessment/Plan: Syncope and collapse with head injury head ct negative x 2 was previously on keppra earlier in the year but negative EEG per dean. will refer to Dr. Mabry on d/c monitor labs, monitor on tele troponins negative per cardiology, will need ppm for episodes of bradycardia, likely causing falls maintain fall precautions physical therapy consult will order orthostatics Code(s): R55 - SYNCOPE AND COLLAPSE Qualifiers: Syncope type: unspecified Qualified Code(s): R55 - Syncope and collapse (2) UTI (urinary tract infection) Assessment/Plan: UA suggest UTI, given ceftriaxone in ED, will continue pending UC. Code(s): N39.0 - URINARY TRACT INFECTION, SITE NOT SPECIFIED Qualifiers: Urinary tract infection type: acute cystitis Hematuria presence: without hematuria Qualified Code(s): N30.00 - Acute cystitis without hematuria (3) Diabetes Assessment/Plan: stop metformin and place on novolog ac/hs bgms ac/hs Code(s): E11.9 - TYPE 2 DIABETES MELLITUS WITHOUT COMPLICATIONS Qualifiers: Diabetes mellitus type: type 2 Diabetes mellitus long term care pharmacist insulin use: without long term care pharmacist use Diabetes mellitus complication status: with unspecified complications Visit type - Emergency Visit Emergency Visit: Yes ED Registration Date: 01/04/19 Care time: The patient presented to the Emergency Department on the above date and was hospitalized for further evaluation of their emergent condition. - New Patient This patient is new to me today: No - Critical Care Critical Care patient: No - Discharge Referral Referred to [facility] Med P.C.: No
--- NOTE | 2019-01-05 18:05 | DS ---
Physical Exam: SUBJECTIVE: Patient seen and examined OBJECTIVE: Vital Signs Period Temp Pulse Resp BP Sys/Walls Pulse Ox Last 24 Hr 97.1 F-98.2 F 40-64 16-20 112-146/37-87 99-99 PHYSICAL EXAM GENERAL: The patient is awake, alert, and fully oriented, in no acute distress. HEAD: Normal with no signs of trauma. EYES: PERRL, extraocular movements intact, sclera anicteric, conjunctiva clear. ENT: Ears normal, nares patent, oropharynx clear without exudates, moist mucous membranes. NECK: Trachea midline, full range of motion, supple. LUNGS: Breath sounds equal, clear to auscultation bilaterally, no wheezes, no crackles, no accessory muscle use. HEART: Regular rate and rhythm, S1, S2 without murmur, rub or gallop. ABDOMEN: Soft, nontender, nondistended, normoactive bowel sounds, no guarding, no rebound, no hepatosplenomegaly, no masses. EXTREMITIES: 2+ pulses, warm, well-perfused, no edema. NEUROLOGICAL: Cranial nerves II through XII grossly intact. Normal speech, gait not observed. PSYCH: Normal mood, normal affect. SKIN: Warm, dry, normal turgor, no rashes or lesions noted. LABS Laboratory Results - last 24 hr 01/04/19 01/04/19 01/05/19 20:35 20:35 06:05 WBC 9.5 RBC 3.18 L Hgb 9.7 L Hct 29.7 L MCV 93.5 MCH 30.6 MCHC 32.8 RDW 15.6 Plt Count 327 MPV 7.8 D Absolute Neuts (auto) 6.8 Neutrophils % 71.8 Lymphocytes % 12.5 Monocytes % 10.0 Eosinophils % 5.2 H Basophils % 0.5 Nucleated RBC % 0 Sodium Potassium Chloride Carbon Dioxide Anion Gap BUN Creatinine Est GFR (CKD-EPI)AfAm Est GFR (CKD-EPI)NonAf POC Glucometer 91 Random Glucose Hemoglobin A1c % Calcium Magnesium Total Bilirubin AST ALT Alkaline Phosphatase Troponin I < 0.02 Total Protein Albumin 01/05/19 01/05/19 01/05/19 06:05 06:05 06:12 WBC RBC Hgb Hct MCV MCH MCHC RDW Plt Count MPV Absolute Neuts (auto) Neutrophils % Lymphocytes % Monocytes % Eosinophils % Basophils % Nucleated RBC % Sodium 141 Potassium 4.3 Chloride 110 H Carbon Dioxide 26 Anion Gap 6 L BUN 20.0 H Creatinine 1.3 Est GFR (CKD-EPI)AfAm 56.86 Est GFR (CKD-EPI)NonAf 49.06 POC Glucometer 88 Random Glucose 88 Hemoglobin A1c % 5.7 Calcium 8.6 Magnesium 2.0 Total Bilirubin 0.4 AST 16 ALT 16 Alkaline Phosphatase 43 L Troponin I Total Protein 5.4 L Albumin 2.8 L 01/05/19 17:04 WBC RBC Hgb Hct MCV MCH MCHC RDW Plt Count MPV Absolute Neuts (auto) Neutrophils % Lymphocytes % Monocytes % Eosinophils % Basophils % Nucleated RBC % Sodium Potassium Chloride Carbon Dioxide Anion Gap BUN Creatinine Est GFR (CKD-EPI)AfAm Est GFR (CKD-EPI)NonAf POC Glucometer 111 Random Glucose Hemoglobin A1c % Calcium Magnesium Total Bilirubin AST ALT Alkaline Phosphatase Troponin I Total Protein Albumin HOSPITAL COURSE: Date of Admission:01/04/19 Date of Discharge: 01/05/19 Discharge Summary Problems reviewed: Yes Reason For Visit: SYNCOPE Current Active Problems Syncope (Acute) UTI (urinary tract infection) (Acute) Condition: Guarded - Instructions Diet, Activity, Other Instructions: transfer to [facility] Referrals: Taye Srivastava MD [Primary Care Provider] - Disposition: TRANSFER ACUTE CARE/OTHER HOSP - Home Medications Comprehensive Discharge Medication List: Ambulatory Orders Tamsulosin HCl [Flomax] 0.4 mg PO BID 01/19/16 Atorvastatin Ca [Lipitor] 20 mg PO ASDIR 10/30/17 Lisinopril [Zestril] 5 mg PO DAILY 10/30/17 Metoprolol Succinate [Toprol XL -] 200 mg PO DAILY 10/30/17 Methimazole [Tapazole -] 10 mg PO DAILY 01/17/18 Omeprazole [Prilosec (RX)] 20 mg PO BID 01/17/18 metFORMIN HCL [Metformin HCl ER] 500 mg PO DAILY 01/17/18 Apixaban [Eliquis -] 5 mg PO BID tablet 01/05/19 Atorvastatin Ca [Lipitor] 20 mg PO HS tablet 01/05/19 Insulin Sliding Scale [Novolog Vial Sliding Scale -] 1 vial SQ ACHS units 01/05 Pantoprazole Sodium [Protonix -] 40 mg PO DAILY tablet.ec 01/05/19 Problem List - Problems (1) Syncope Code(s): R55 - SYNCOPE AND COLLAPSE Qualifiers: Syncope type: unspecified Qualified Code(s): R55 - Syncope and collapse (2) UTI (urinary tract infection) Code(s): N39.0 - URINARY TRACT INFECTION, SITE NOT SPECIFIED Qualifiers: Urinary tract infection type: acute cystitis Hematuria presence: without hematuria Qualified Code(s): N30.00 - Acute cystitis without hematuria (3) Diabetes Code(s): E11.9 - TYPE 2 DIABETES MELLITUS WITHOUT COMPLICATIONS Qualifiers: Diabetes mellitus type: type 2 Diabetes mellitus usp insulin use: without salvage determiner use Diabetes mellitus complication status: with unspecified complications - Discharge Referral Referred to [facility] Med P.C.: No
[2019-01-05 18:40] VITALS: BP 155/55; PULSE 65; TEMP 97.9
[2019-01-05] MEDS ORDERED: INSULIN SLIDING SCALE (NOVOLOG) 1 VIAL SQ SCH (22:00)
--- NOTE | 2019-01-07 11:48 | EKG ---
Test Reason : Blood Pressure : / mmHG Vent. Rate : 063 BPM Atrial Rate : 063 BPM P-R Int : 172 ms QRS Dur : 148 ms QT Int : 422 ms P-R-T Axes : 081 -38 075 degrees QTc Int : 431 ms NORMAL SINUS RHYTHM LEFT AXIS DEVIATION LEFT BUNDLE BRANCH BLOCK ABNORMAL ECG WHEN COMPARED WITH ECG OF 26-APR-2018 15:18, NO SIGNIFICANT CHANGE WAS FOUND Confirmed by LEEANN KEENE MD ([id number]) on 01/07/2019 11:47:57 AM Referred By: Confirmed By:LEEANN KEENE MD
== END 2019-01-05 18:58 | disposition short-term general hospital (02) ==
LOC: JER 12:09 → JERBED 13:58 → J2W 17:59
PROVIDERS: ATTEND Nurse Practitioner Family
PROC: 3E0337Z Introduction of Electrolytic and Water Balance Substance into Peripheral Vein, Percutaneous Approach (ICD-10-PCS; principal; 2019-01-04)
PROC: 3E03329 Introduction of Other Anti-infective into Peripheral Vein, Percutaneous Approach (ICD-10-PCS; 2019-01-04)
PROC: 3E033NZ Introduction of Analgesics, Hypnotics, Sedatives into Peripheral Vein, Percutaneous Approach (ICD-10-PCS; 2019-01-04)
DX: R55 Syncope and collapse (principal); N30.00 Acute cystitis without hematuria; E11.9 Type 2 diabetes mellitus without complications; Z79.4 Long term (current) use of insulin; S01.112A Laceration without foreign body of left eyelid and periocular area, initial encounter; W18.39XA Other fall on same level, initial encounter; Y93.89 Activity, other specified; Y92.512 Supermarket, store or market as the place of occurrence of the external cause; Y99.8 Other external cause status; I48.0 Paroxysmal atrial fibrillation; Z79.01 Long term (current) use of anticoagulants; I25.10 Atherosclerotic heart disease of native coronary artery without angina pectoris; I11.0 Hypertensive heart disease with heart failure; Z95.5 Presence of coronary angioplasty implant and graft; I25.2 Old myocardial infarction; I50.20 Unspecified systolic (congestive) heart failure; R27.0 Ataxia, unspecified; E05.90 Thyrotoxicosis, unspecified without thyrotoxic crisis or storm; G40.909 Epilepsy, unspecified, not intractable, without status epilepticus; J43.9 Emphysema, unspecified; I44.7 Left bundle-branch block, unspecified; K21.9 Gastro-esophageal reflux disease without esophagitis; K57.90 Diverticulosis of intestine, part unspecified, without perforation or abscess without bleeding; Z85.46 Personal history of malignant neoplasm of prostate
CPT/HCPCS: 36415; 70450-TC; 71045-TC-FY; 72125-TC; 80053; 81003; 82436; 82550; 82962; 83036; 83735; 84300; 84484; 85025; 85610; 87086; 87186; 90715; 93005; 93010; 99284-25; G0378; J0131; J7030